=== PATIENT | female | born 1930 | race Caucasian/White ===

== ENCOUNTER 2017-04-20 22:47 | Inpatient (IN) | payer MEDICARE ==
--- NOTE | 2017-04-20 23:27 | RAD ---
RADIOGRAPH CHEST 1 VIEW: HISTORY: 86-year-old female with acute chest pain. FINDINGS: There is mild hyperinflation of the lungs, consistent with COPD. The thoracic aorta is tortuous and ectatic. There is no evidence of air space density, pneumothorax, or pulmonary edema. The lateral c ostophrenic angles are sharp. IMPRESSION: 1) No acute pulmonary findings. 2) Mild emphysema. 3) Ectasia of thoracic aorta. lukasz POS: FABIANA
[2017-04-20 23:49] LABS: ALT (SGPT) 12 U/L (8-55); AST (SGOT) 17 U/L (5-34); Albumin 3.7 g/dL (3.4-4.8); Alkaline Phosphatase 90 U/L (40-150); Anion Gap 10 mmol/L (10-20); BUN (Urea Nitrogen) 21 mg/dL (9.8-20.1); Bilirubin, Total 0.4 mg/dL (0.2-1.2); Calc. Creatinine Clearance 0 mL/min (70-130); Calcium 9.2 mg/dL (7.8-10.44); Carbon Dioxide 26 mmol/L (23-31); Chloride 110 mmol/L (98-107); Estimated GFR-MDRD 56; Globulin 2.6 g/dL (2.4-3.5); Glucose 98 mg/dL (83-110); Potassium 3.8 mmol/L (3.5-5.1); Protein, Total 6.3 g/dL (6.0-8.3); Sodium 142 mmol/L (136-145)
[2017-04-20 23:53] LABS: Troponin I Less than 0.010 ng/mL (< 0.028)
[2017-04-21 00:15] LABS: Eosinophils 2 % (0-10); Lymphocytes 32 % (21-51); MDiff Complete? YES; Mean Corpuscular HGB CONC 33.3 g/dL (32.0-36.0); Mean Corpuscular Hemoglobin 34.3 pg (27.0-31.0); Mean Platelet Volume 7.3 fL (7.4-10.4); Monocytes 6 % (0-10); Neutrophil 60 % (42-75); PLT Morphology Comment Appears Adequate; Platelet Count 184 thou/uL (130-400); RBC Distribution Width 12.1 % (11.5-14.5); Red Blood Cell (RBC) Count 3.21 mill/uL (4.20-5.40); White Blood Cell (WBC) Count 6.2 thou/uL (4.8-10.8)
[2017-04-21] MEDS ORDERED: Sodium Chloride 0.9% 1,000 ML IV SCH (01:15)
--- NOTE | 2017-04-21 01:15 | PDOC.EVN ---
Event Note - Event Note Event Note: [id number] H&P Dictated 1. Chest pain 2. HTN 3. H/O HPL 4. PVD Plan: see orders
--- NOTE | 2017-04-21 01:57 | HP ---
DATE OF ADMISSION: 04/21/2017 CHIEF COMPLAINT: Chest pain. HISTORY OF PRESENT ILLNESS: The patient is 86 years old female with past medical history of coronary artery disease, peripheral vascular disease, hypertension, hyperlipidemia, now came to the ER compla ining of chest pain. Chest pain started all of sudden, substernal, pressure kind of pain, intermitte nt, started this afternoon resolved with sublingual nitroglycerin, had another episode this evening, again resolved with sublingual nitroglycerin. The patient was sleeping tonight and all of sudden sta rted having chest pain, took nitroglycerin and pain resolved, so the patient came to the ER for furth er evaluation. Denies any radiation. Pain is moderate in intensity. Denies any sweating, denies an y nausea, denies any vomiting, denies any fever, denies any chills, denies any lightheadedness. Himanshu es any cough, denies sputum production. PAST MEDICAL HISTORY: As per HPI. PAST SURGICAL HISTORY: Bilateral carotid endarterectomy and stent placement. SOCIAL HISTORY: Denies smoking, denies alcohol, denies any drugs. FAMILY HISTORY: Positive for heart problems. REVIEW OF SYSTEMS: Constitutional: Denies any fever, denies any chills. Eyes: Denies any vision p roblems. Ears: Denies any hearing loss. Neck: Denies any neck pain. Cardiovascular system: Posi tive for chest pain. Respiratory system: Denies any cough, denies any sputum production. Gastroint estinal: Denies nausea, denies vomiting. Musculoskeletal: Denies any joint deformities. Integumen tary: Denies any rash. All other review of systems are reviewed and are negative. PHYSICAL EXAMINATION: CONSTITUTIONAL/VITAL SIGNS: At the time of H and P performed, blood pressure is 110/70, afebrile, re spiration rate 18. GENERAL: The patient appears comfortable. HEENT: Pupils equal, round, and reactive to light. Anterior nares patent. Nose normal. Teeth inta ct. Tongue is moist. NECK: Supple, no JVD. CARDIOVASCULAR SYSTEM: S1, S2 present. Regular rate and rhythm, no murmurs, no rubs, no gallops. RESPIRATORY SYSTEM: No wheezing, no rhonchi. Breath sounds present bilaterally. Gastrointestinal: Abdomen is soft, nontender, no guarding, no organomegaly. MUSCULOSKELETAL: No edema. CRANIAL NERVOUS SYSTEM: Awake, follows commands. Strength intact, sensory intact. PSYCHIATRIC: Mood is appropriate at this time. INTEGUMENTARY: No skin. LABORATORY DATA: At the time of H and P performed, sodium 142, potassium 3.8, chloride 110, CO2 of 2 6, BUN of 21, creatinine 0.95. Troponin less than 0.010, albumin 6.3. White count 6.2, hemoglobin 1 1, platelet count is 184. ASSESSMENT AND PLAN: The patient is 84 years old female: 1. Chest pain, need to rule out cardiac etiology. Plan to check cardiac enzymes. Plan to monitor t he patient closely. 2. History of hypertension. Monitor blood pressure. Continue home blood pressure medications. 3. History of coronary artery disease. Continue aspirin p.o. daily. 4. History of hyperlipidemia. Continue home medications. The case was discussed in detail with the patient.
[2017-04-21 02:54] LABS: Troponin I Less than 0.010 ng/mL (< 0.028)
[2017-04-21 03:07] LABS: Cardiac Risk 2.7 (Less than 4.5)
[2017-04-21] MEDS: Levothyroxine Sodium 75 MCG TAB PO SCH (04:21)
[2017-04-21] MEDS ORDERED: Nitroglycerin 2% Ointment 1 INCH/1 GM Packet TOP SCH (06:00)
[2017-04-21 06:54] LABS: Troponin I 0.013 ng/mL (< 0.028)
[2017-04-21] MEDS ORDERED: Aspirin 325 MG TAB PO SCH (09:00)
[2017-04-21] MEDS ORDERED: Carvedilol 6.25 MG TAB PO SCH ×2 (09:00→12:00)
[2017-04-21] MEDS ORDERED: hydrALAZINE 20 MG/ML VIAL SLOW IVP PRN (09:29)
--- NOTE | 2017-04-21 09:35 | PDOC.EVN ---
Event Note - Event Note Event Note: pt seen and evaluated agree with plan f/u cardiology recommendations
[2017-04-21] MEDS ORDERED: cloNIDine 0.1 MG TAB PO PRN (09:58)
[2017-04-21] MEDS ORDERED: Clopidogrel Bisulfate 300 MG TAB PO SCH (10:00)
[2017-04-21] MEDS ORDERED: Nisoldipine 8.5 MG TAB PO SCH (11:00)
[2017-04-21] MEDS ORDERED: SODIUM CHLORIDE 0.9% IVPB ONE (11:00)
[2017-04-21] MEDS ORDERED: FOSPHENYTOIN SODIUM IVPB ONE (11:00)
[2017-04-21] MEDS: Nebivolol HCl 5 MG TAB PO SCH (11:05)
--- NOTE | 2017-04-21 12:08 | PRG ---
DATE OF SERVICE: 04/21/2017 SUBJECTIVE: Ms. Ohara is an 86-year-old woman with a history of calcified coronary artery disease, labile hypertension, history of recurrent gastrointestinal bleeding, peripheral vascular disease, ad mitted with unstable angina. Ms. Ohara had an episode of angina, relieved with nitroglycerin, but then she had recurrent angina, and ultimately, required a total of 3 nitroglycerin. She came to the emergency room. She was broug ht in for observation. Currently, pain free. Blood pressure was over 190 systolic at home, but it i s extremely variable, blood pressure elsewhere over 190. PHYSICAL EXAMINATION: VITAL SIGNS: On exam now, blood pressure 191/79, pulse 70. HEENT: Eyes: Sclerae nonicteric. Mouth: Mucous membranes moist. NECK: Supple. No lymphadenopathy. LUNGS: Clear. No wheezing, rales, or rhonchi. CARDIAC: Normal S1, normal S2. There is no murmur, rub, or gallop. ABDOMEN: Soft, nontender. EXTREMITIES: Warm, dry. LABORATORY DATA: Cardiac enzymes are negative. EKG shows no acute ischemia. ASSESSMENT: 1. Unstable angina. 2. History of gastrointestinal bleeding. 3. Heavily calcified coronary arteries. 4. Blood pressure, extremely labile. PLAN: 1. Increase Sular 2. Try to give her at least a short-term course of Plavix at least for a couple of weeks, usually go longer, as she has gastrointestinal bleeding, we can not go longer. 3. Poor candidate for bypass surgery. She is frail and 86 years of age, nearly 87. 4. Poor candidate for stent implantation, coronary artery disease, heavily calcified with history of recurrent GI bleeding on Plavix. Hopefully, can be released home tomorrow.
[2017-04-21] MEDS: Nitroglycerin 0.4 MG TAB (25 Tab Bottle) SL PRN ×2 (17:27→17:36)
[2017-04-21] MEDS: Rivastigmine 4.6mg/24 Hour PATCH TOP SCH (20:43)
[2017-04-21] MEDS: Brinzolamide 1% Ophth Soln 10 ml Bottle EA EYE SCH (20:46)
[2017-04-21] MEDS: Latanoprost 0.005% Ophth Soln 2.5 ml Bottle EA EYE SCH (20:46)
[2017-04-21] MEDS: Atorvastatin Calcium 40 MG TAB PO SCH (20:47)
[2017-04-21] MEDS: Ubidecarenone 50 MG CAP PO SCH (20:47)
[2017-04-21] MEDS: Ezetimibe 10 MG TAB PO SCH (20:48)
[2017-04-21] MEDS: Nisoldipine 8.5 MG TAB PO SCH (20:49)
[2017-04-21] MEDS ORDERED: NISOLDIPINE PO SCH (21:00)
[2017-04-22] MEDS: Nitroglycerin 0.4 MG TAB (25 Tab Bottle) SL PRN ×2 (00:48→00:54)
[2017-04-22] MEDS: Levothyroxine Sodium 75 MCG TAB PO SCH (06:01)
[2017-04-22] MEDS: Nebivolol HCl 5 MG TAB PO SCH (08:51)
[2017-04-22] MEDS: Aspirin 81 mg Enteric Coated Tablet PO SCH (08:52)
[2017-04-22] MEDS: Calcium Carbonate + Vit D 1 TAB PO SCH (08:52)
[2017-04-22] MEDS: Potassium Chloride 10 MEQ TAB PO SCH (08:52)
[2017-04-22] MEDS: Magnesium Oxide 400 MG TAB PO SCH (08:52)
[2017-04-22] MEDS: Brinzolamide 1% Ophth Soln 10 ml Bottle EA EYE SCH ×2 (08:56→20:42)
[2017-04-22] MEDS ORDERED: Clopidogrel Bisulfate 75 MG TAB PO SCH (09:00)
[2017-04-22] MEDS ORDERED: Communication Order-Pharmacy FS SCH (09:30)
--- NOTE | 2017-04-22 09:55 | PRG ---
DATE OF SERVICE: 04/22/2017 Ms. Ohara had several episodes of resting angina requiring nitroglycerin at rest last night. He had a difficult night. OBJECTIVE: VITAL SIGNS: Blood pressure this morning 184/80, pulse 70. LUNGS: Clear. CARDIAC: Normal S1, S2. ABDOMEN: Soft and nontender. ASSESSMENT: 1. Unstable angina with refractory chest pain. 2. Hypercholesterolemia, controlled. 3. Hypertension, labile. 4. Peripheral vascular disease. PLAN: In view of continued angina even despite aspirin and Plavix, recommend cardiac catheterization . Discussed risks of stroke, heart attack, iodine allergy, loss of blood supply to the leg or kidney , stent thrombosis, stent restenosis, and bleeding in the event Plavix is necessary, which has been a problem in the past. The patient and family understand and wish to proceed. Prognosis is guarded. Options are suboptimal as if stents are placed she does have risk of GI bleeding, also she has calci fied vessels. It is unclear whether stent would be of any benefit or feasible. Bypass surgery could be considered, but she is 86 years of age and somewhat frail. We will go ahead and hold Plavix tomorrow morning in case bypass surgery is indicated.
[2017-04-22] MEDS: Nisoldipine 8.5 MG TAB PO SCH ×2 (14:05→20:49)
[2017-04-22] MEDS: Atorvastatin Calcium 40 MG TAB PO SCH (20:42)
[2017-04-22] MEDS: Ubidecarenone 50 MG CAP PO SCH (20:42)
[2017-04-22] MEDS: Latanoprost 0.005% Ophth Soln 2.5 ml Bottle EA EYE SCH (20:42)
[2017-04-22] MEDS: Ezetimibe 10 MG TAB PO SCH (20:42)
[2017-04-22] MEDS: Rivastigmine 4.6mg/24 Hour PATCH TOP SCH (20:49)
[2017-04-23] MEDS: Nisoldipine 8.5 MG TAB PO SCH ×2 (04:54→20:59)
[2017-04-23] MEDS: Nebivolol HCl 5 MG TAB PO SCH (04:55)
[2017-04-23] MEDS: Magnesium Oxide 400 MG TAB PO SCH (04:55)
[2017-04-23] MEDS: Calcium Carbonate + Vit D 1 TAB PO SCH (04:55)
[2017-04-23] MEDS: Levothyroxine Sodium 75 MCG TAB PO SCH (04:55)
[2017-04-23] MEDS: Aspirin 81 mg Enteric Coated Tablet PO SCH (04:56)
[2017-04-23] MEDS: Sodium Chloride 0.9% 1,000 ML IV SCH (04:58)
[2017-04-23] MEDS ORDERED: Heparin 1000 UNIT/NS 500ML(OR) 1,000 ML ONE (06:39)
[2017-04-23 06:59] LABS: Albumin 3.2 g/dL (3.4-4.8); Anion Gap 10 mmol/L (10-20); BUN (Urea Nitrogen) 18 mg/dL (9.8-20.1); BUN/Creatinine Ratio 21.43; Calc. Creatinine Clearance 39 mL/min (70-130); Carbon Dioxide 25 mmol/L (23-31); Estimated GFR-MDRD 64; Glucose 99 mg/dL (83-110)
[2017-04-23] MEDS ORDERED: Nitroglycerin 2% Ointment 1 INCH/1 GM Packet ONE (07:48)
[2017-04-23] MEDS ORDERED: Heparin 10,000 UNITS/1 ML VIAL ONE (07:49)
[2017-04-23 08:05] LABS: Sodium 138 mmol/L (136-145)
[2017-04-23 08:06] LABS: Calcium 8.7 mg/dL (7.8-10.44); Chloride 111 mmol/L (98-107); Phosphorus 3.7 mg/dL (2.3-4.7); Potassium 5.4 mmol/L (3.5-5.1)
[2017-04-23] MEDS ORDERED: Heparin 10,000 UNITS/ 10 ML VIAL SLOW IVP SCH (08:45)
[2017-04-23] MEDS ORDERED: Heparin 25,000 units/D5W 500 ML IV SCH (08:45)
[2017-04-23 09:04] LABS: Hemoglobin 9.8 g/dL (12.0-16.0); Platelet Count 166 thou/uL (130-400)
[2017-04-23 09:36] LABS: PTT Greater than 250.0 SEC (22.9-36.1)
[2017-04-23 10:49] LABS: PTT 155.9 SEC (22.9-36.1)
[2017-04-23] MEDS ORDERED: Fentanyl 100 MCG/2 ML VIAL ONE (14:22)
[2017-04-23] MEDS ORDERED: Iopamidol 370 76% 100 ML VIAL ONE (15:45)
[2017-04-23] MEDS ORDERED: Communication Order-Pharmacy FS SCH (16:25)
[2017-04-23] MEDS ORDERED: hydrALAZINE 20 MG/ML VIAL SLOW IVP PRN (16:27)
--- NOTE | 2017-04-23 18:44 | CON ---
DATE OF CONSULTATION: 04/23/2017 REASON FOR CONSULTATION: Evaluate the patient for coronary artery bypass grafting. HISTORY OF PRESENT ILLNESS: Ms. Ohara is an 86-year-old woman who has had 6 weeks of chest pain at home. This has increased recently to where she was admitted to the hospital on 04/20/2017 with a se colette episode. She was settled down, but continued to have chest pain in the hospital. Dr. Sawant thurston s consultation and took her for cardiac catheterization today. Catheterization shows a severe right coronary stenosis and a severe left main stenosis. She has an ejection fraction of 60% on ventriculo gram. Currently, she is resting comfortably in the recovery area with no chest pain or shortness of breath. I have been asked to see her to discuss coronary artery bypass grafting. PAST MEDICAL HISTORY: 1. Coronary artery disease. 2. Peripheral vascular disease. 3. Hypertension. 4. History of recurrent gastrointestinal bleeding, on Plavix. PAST SURGICAL HISTORY: 1. Bilateral carotid endarterectomies. 2. Peripheral vascular stenting by Dr. Hernandez. SOCIAL HISTORY: She smoked until the early when she had a myocardial infarction which led to h er stopping tobacco use. She does not use alcohol. She is accompanied by her and daughters. ALLERGIES: None. HOME MEDICATIONS: Noted. REVIEW OF SYSTEMS: Ten-point review of systems was performed and is negative except as above. PHYSICAL EXAMINATION: GENERAL: This is a well-developed, diminutive elderly woman resting comfortably in the recovery area . VITAL SIGNS: Height 5 feet 5 inches, weight 114 pounds, BSA is 1.54, temperature is 98.7, pulse is 7 5 and regular, blood pressure is 170/76. HEENT: Sclerae nonicteric. Pupils equal and round bilaterally. NECK: Supple. She has no carotid bruits. CHEST: Clear to auscultation and percussion bilaterally. HEART: Rhythm is regular, without murmur. ABDOMEN: Soft and nontender with no masses. EXTREMITIES: No cyanosis, clubbing or edema. VASCULAR: She has palpable carotid, radial, femoral, and dorsalis pedis pulses bilaterally. VENOUS: There are no venous varicosities or venous stasis changes. PSYCHIATRIC: The patient is awake, alert, and oriented to person, place and time. She is hard of he aring and we have to speak very loudly for her to understand anything that you say. LABORATORY DATA: Of note, hemoglobin is 9.8, platelet count 166,000, creatinine is 0.84, potassium i s 5.4. Chest x-ray is clear with no dominant lung mass. Most recent carotid ultrasound was performe d in 10/2016, which showed a moderate stenosis of the left internal carotid artery; the right interna l carotid artery is clear. ASSESSMENT AND PLAN: This is a very pleasant, although frail 86-year-old woman with unstable angina. Cardiac catheterization shows anatomy compelling for coronary artery bypass grafting. I have discu ssed the surgery in detail with she and her family. They understand that this is going to be a long and difficult road for her to recover from due to her age and overall physiologic status. They are w anting to go ahead and proceed and we will plan for surgery tomorrow morning. Potential targets incl uded LAD, OM, and distal right coronary enzyme.
[2017-04-23] MEDS ORDERED: Nitroglycerin 50 MG/250 ML BOT 250 ML ONE (19:17)
[2017-04-23] MEDS ORDERED: Nitroglycerin 50 MG/250 ML BOT 250 ML IVPB PRN (19:19)
[2017-04-23] MEDS: Brinzolamide 1% Ophth Soln 10 ml Bottle EA EYE SCH ×2 (20:57→21:13)
[2017-04-23] MEDS: Potassium Chloride 10 MEQ TAB PO SCH (20:57)
[2017-04-23] MEDS: Atorvastatin Calcium 40 MG TAB PO SCH (20:57)
[2017-04-23] MEDS: Latanoprost 0.005% Ophth Soln 2.5 ml Bottle EA EYE SCH (20:58)
[2017-04-23] MEDS: Ezetimibe 10 MG TAB PO SCH (20:58)
[2017-04-23] MEDS: Rivastigmine 4.6mg/24 Hour PATCH TOP SCH (20:59)
[2017-04-23] MEDS: Ubidecarenone 50 MG CAP PO SCH (21:00)
[2017-04-23 22:49] LABS: #Eosinphils 0.1 thou/uL (0.0-0.7); #Lymphocytes 1.1 thou/uL (1.20-3.40); #Monocytes 0.9 thou/uL (0.11-0.59); #Neutrophils 5.9 thou/uL (1.40-6.50); %Basophils 0.3 % (0.0-1.0); %Eosinophils 1.5 % (0.0-10.0); %Lymphocytes 13.7 % (21.0-51.0); %Monocytes 11.5 % (0.0-10.0); Hemoglobin 10.4 g/dL (12.0-16.0); Mean Corpuscular HGB CONC 32.8 g/dL (32.0-36.0); Mean Corpuscular Hemoglobin 33.6 pg (27.0-31.0); Mean Platelet Volume 6.9 fL (7.4-10.4); Platelet Count 169 thou/uL (130-400); RBC Distribution Width 12.1 % (11.5-14.5); Red Blood Cell (RBC) Count 3.09 mill/uL (4.20-5.40)
[2017-04-23 23:06] LABS: Anion Gap 9 mmol/L (10-20); BUN (Urea Nitrogen) 15 mg/dL (9.8-20.1); Calc. Creatinine Clearance 42 mL/min (70-130); Calcium 9.2 mg/dL (7.8-10.44); Carbon Dioxide 27 mmol/L (23-31); Chloride 108 mmol/L (98-107); Estimated GFR-MDRD 68; Glucose 121 mg/dL (83-110); Potassium 3.7 mmol/L (3.5-5.1); Sodium 140 mmol/L (136-145)
--- NOTE | 2017-04-23 23:17 | CT ---
CT OF THE ABDOMEN AND PELVIS WITHOUT CONTRAST 04/23/17 PROVIDED CLINICAL HISTORY: Right lower quadrant pain, recent cardiac catheterization. FINDINGS: Comparison is made with the study dated 10/26/16. The visualized lung bases are free of significant opacity. Bilateral renal cysts and nonobstructing right sided renal calculi are again noted. The solid abdomin al organs are suboptimally evaluated without IV contrast but demonstrate an otherwise unremarkable un enhanced CT appearance. There is somewhat conspicuous distention of the gallbladder without surroundi ng inflammatory change. There is enlargement and heterogeneous increased density within the right rectus abdominis muscle fro m its symphysis insertion to about the level of the umbilicus. This measures approximately 5.7 x 4.4 cm in greatest transverse dimension x about 10 cm in craniocaudal dimension. This is compatible with an intramuscular hematoma. There is no bowel dilatation, inflammatory fat stranding, free fluid or fr ee air apparent. Extensive atherosclerotic vascular calcification is noted involving the abdominal ao rta and its branches with vascular stent material seen. There is conspicuous colonic fecal retention and numerous sigmoid diverticula. The osseous structures demonstrate no concerning osteoblastic or osteolytic lesions. IMPRESSION: 1. Intramuscular hematoma involving the right rectus abdominis muscle. 2. Chronic findings as above. POS: MIKA
[2017-04-24] MEDS: Levothyroxine Sodium 75 MCG TAB PO SCH (05:16)
[2017-04-24] MEDS: Nebivolol HCl 5 MG TAB PO SCH (05:16)
[2017-04-24] MEDS: Sodium Chloride 0.9% 1,000 ML IV SCH (05:25)
[2017-04-24 06:00] LABS: Albumin 3.3 g/dL (3.4-4.8); BUN (Urea Nitrogen) 20 mg/dL (9.8-20.1); Calc. Creatinine Clearance 40 mL/min (70-130); Chloride 109 mmol/L (98-107); Estimated GFR-MDRD 65; Glucose 106 mg/dL (83-110); Phosphorus 3.8 mg/dL (2.3-4.7); Potassium 3.9 mmol/L (3.5-5.1); Sodium 140 mmol/L (136-145)
[2017-04-24 06:02] LABS: Carbon Dioxide 24 mmol/L (23-31)
[2017-04-24 06:18] LABS: Anion Gap 11 mmol/L (10-20)
[2017-04-24] MEDS ORDERED: Albumin 5% 500 ML ONE (06:36)
[2017-04-24] MEDS ORDERED: Heparin 10,000 UNITS/1 ML VIAL 30,000 UNITS in Sodium Chloride 0.9% 1,000 ML FS SCH (06:45)
[2017-04-24] MEDS ORDERED: Phenylephrine 10 MG/NS 250 ML 250 ML ONE (08:45)
[2017-04-24] MEDS ORDERED: Midazolam HCl 5 mg/5 ml Vial ONE (08:48)
[2017-04-24] MEDS ORDERED: Fentanyl 250 MCG/5 ML VIAL ONE (08:48)
[2017-04-24] MEDS ORDERED: hydrALAZINE 20 MG/ML VIAL ONE (09:54)
--- NOTE | 2017-04-24 10:44 | CON ---
DATE OF CONSULTATION: 04/24/2017 HISTORY: This is an 86-year-old female from the [facility] who was admitted to the hospital on 04/04 with chest pain. Cardiac evaluation was done, found to have coronary artery disease, she is scheduled for surgery toda y. The patient is essentially a nonsmoker with no prior history of TB or bronchial asthma. She presente d with sudden onset of chest pain, took nitro, got better. No fever or chills. PAST MEDICAL HISTORY: Pertinent for previous TIA, peripheral vascular disease. PAST SURGICAL HISTORY: Otherwise included a previous apparently carotid surgery. MEDICATIONS FROM HOME; Includes Exelon patch, Ranexa, potassium, Benicar 20, Sular 8.5, Bystolic 5, magnesium, Synthroid 75, eye drops, ISMO 60, Zetia 10, atorvastatin 80, aspirin 81. REVIEW OF SYSTEMS: Difficult to obtain, patient is having evidence of dementia, is at the [facility]. I spoke to him at length. I reviewed her extensive previous medical records. PHYSICAL EXAMINATION: VITAL SIGNS: To note, sats are 96% on room air, blood pressure 130/74, pulse 80, respirations 18. CHEST: Chest revealed no wheezing or crackles. CARDIAC: Normal S1, S2. ABDOMEN: Soft, no masses. LABORATORY DATA: White count 8000, H&H 8 and 31, platelet count 69. Electrolytes are normal. CT abdomen and pelvis was done, intramuscular hematoma in the right rectus abdominal muscle. Chest x-ray taken several days ago, which I personally reviewed, shows no acute infiltrates. IMPRESSION: 1. Coronary artery disease, scheduled for a coronary artery bypass surgery. 2. Dementia. 3. Hypothyroidism. 4. Peripheral vascular disease. 5. Remote history of tobacco abuse. 6. Gastrointestinal bleed. PLAN: Will follow while in the ICU. Wean as tolerated. This is a 70 minute time spent at the bedside with the patient in the ICU.
[2017-04-24] MEDS ORDERED: Potassium Chloride 20 MEQ/100 ML PREMIX BAG IVPB PRN (13:46)
[2017-04-24] MEDS ORDERED: Fentanyl 100 MCG/2 ML VIAL SLOW IVP PRN ×2 (13:46)
[2017-04-24] MEDS ORDERED: Post-Op Insulin Drip Protocol IVPB ONE (13:46)
[2017-04-24] MEDS ORDERED: D5 1/2 NS w/20 mEq KCL 1,000 ML IV SCH (13:46)
[2017-04-24] MEDS ORDERED: Ondansetron HCl/PF 4 MG/2 ML Vial IVP PRN (13:46)
[2017-04-24] MEDS ORDERED: Mag-Al 1200 mg/1200 mg/30 ML UDCUP PO PRN (13:46)
[2017-04-24] MEDS ORDERED: HYDROcodone/Acetaminophen 5/325 mg Tablet PO PRN ×2 (13:46)
[2017-04-24] MEDS ORDERED: Bisacodyl 5 MG TAB PO PRN (13:46)
[2017-04-24] MEDS ORDERED: Nitroglycerin 50 MG/250 ML BOT 250 ML IVPB PRN (13:46)
[2017-04-24] MEDS ORDERED: Guaifenesin DM 100-10/5 ML UDCUP PO PRN (13:46)
[2017-04-24] MEDS ORDERED: Hetastarch 6% 500 ML 500 ML IVPB PRN (13:46)
[2017-04-24] MEDS ORDERED: Promethazine HCl 25 MG/ML VIAL IM PRN (13:46)
[2017-04-24] MEDS ORDERED: Phenylephrine 10 MG/NS 250 ML 250 ML IVPB PRN (13:46)
[2017-04-24] MEDS ORDERED: Acetaminophen 325 MG TAB PO PRN (13:46)
[2017-04-24] MEDS ORDERED: Bisacodyl 10 MG SUPP PR PRN (13:46)
[2017-04-24] MEDS ORDERED: Norepinephrine 8 MG/0.9% NS 250 ML IVPB PRN (13:46)
[2017-04-24] MEDS ORDERED: Insulin Regular 300 UNITS/3 ML VIAL SC PRN (13:58)
[2017-04-24] MEDS ORDERED: Dextrose 50% Abboject 50 ML SYRINGE SLOW IVP PRN (13:58)
[2017-04-24] MEDS ORDERED: Dextrose 5% in Water 1,000 ML IV PRN (13:58)
--- NOTE | 2017-04-24 14:05 | OP ---
DATE OF OPERATION: 04/24/2017. PREOPERATIVE DIAGNOSES: 1. Coronary artery disease/peripheral vascular disease/hypertension/hyperlipidemia/carotid stenosis status post bilateral carotid endarterectomy. 2. Hyperthyroidism. 3. Gastroesophageal reflux disease. POSTOPERATIVE DIAGNOSES: 1. Coronary artery disease/peripheral vascular disease/hypertension/hyperlipidemia/carotid stenosis status post bilateral carotid endarterectomy. 2. Hyperthyroidism. 3. Gastroesophageal reflux disease. PROCEDURES: Coronary artery bypass grafting x4: 1. Reverse saphenous vein in sequence to 1.0 mm diagonal and 1.0 mm left anterior descending - good conduit with small target. 2. Reversed saphenous vein to 1.25 mm OM, good conduit with posteriorly plaqued target. 3. Reversed saphenous vein to 2.5 mm RCA - good conduit with posterior plaque target. SURGEON: Pablo Motta M.D. and Peterson Aviles M.D. ANESTHESIA: General endotracheal, Dr. Amy Zayas. PUMP TIME: 86 minutes. CROSS-CLAMP TIME: 39 minutes. LOW CORE TEMPERATURE: 32 degrees Celsius. DREDGE PUMPER: Bradley Hernandes. DRAINS: 24-Irish chest tubes x2. DRIPS: Epinephrine 0.03 mcg/kg per minute. TRANSFUSIONS: Three units packed red blood cells for anemia on pump. PROCEDURE IN DETAIL: After consent was obtained, the patient was brought to the operating room and p laced in the supine position on the operating room table. Appropriate anesthetic monitor was placed and general endotracheal anesthesia induced. Chest, abdomen, and legs were prepped and draped in usu al sterile fashion. Greater saphenous vein was harvested from the left lower extremity utilizing an endoscopic technique from groin to the midcalf. Wounds were irrigated and closed in layers. Median sternotomy was performed. The patient was systemically heparinized. Thymic fat and pericardium were divided with electrocautery. Pericardial stay sutures were placed. Aortic and atrial cannulation w as performed. After adequate heparinization, the patient was placed on cardiopulmonary bypass. Dist al targets were marked. Aortic cross-clamp was applied and antegrade sanguinous cardioplegic arrest obtained. Left internal mammary artery was not utilized due to the patient's diminutive size and ST elevation o n induction of anesthesia. Aortic cross-clamp was applied and antegrade sanguinous cardioplegic arrest obtained. One liter of a ntegrade cold Duarte cardioplegia was given. Topical cold solution was used. Reversed saphenous ve in was anastomosed to the distal RCA in end-to-side fashion with running 7-0 Prolene suture. Anastom osis was tested and was hemostatic. Reversed saphenous vein was anastomosed to the OM in end-to-side fashion with running 7-0 Prolene suture. Anastomosis was tested and was hemostatic. Reversed saphe nous vein was anastomosed in wrwo-sy-gyiy fashion to the diagonal in end-to-side fashion to the dista l LAD with running 7-0 Prolene suture. Anastomoses were tested and they were hemostatic. Cross-clam p was removed and partial occluding clamp placed. Saphenous veins to the RCA and sequential saphenou s vein was anastomosed to the aortic root. Saphenous vein to the OM was anastomosed to the sidewall of the LAD graft. Partial occluding clamp was removed and grafts deaired. Anastomoses were inspecte d for hemostasis, which was good. The patient was warmed and weaned from cardiopulmonary bypass. Af ter resumption of sinus rhythm, good hemodynamics, and temperature greater than 36.5, bypass was disc ontinued. Decannulation was performed and pursestring sutures secured. Vein pledgeted 4-0 Prolene s uture was used to reinforce the aortic cannulation site. Protamine was administered. Hemostasis was ensured. A 24-Irish chest tubes x2 were placed in the mediastinum. Sternum was treated with vanco mycin paste. After adequate hemostasis had been ensured, the sternum was closed with #7 wire. Roberson um was treated with platelet-rich plasma and wires twisted. Wounds were irrigated, treated with plat elet-poor plasma, and closed in multiple layers. The patient tolerated the procedure well, and was t ransferred to the intensive care unit in stable, but critical condition. Needle, sponge, and instrum ent counts were all reported as correct at the end of the procedure.
--- NOTE | 2017-04-24 14:09 | PDOC.PN ---
- Subjective Encounter Start Date: 04/24/17 Encounter Start Time: 14:07 Patient seen and examined. No new complaints. No overnight events foe cabg today - Objective MAR Reviewed: Yes Vital Signs & Weight: Vital Signs (12 hours) Temp Pulse Resp Pulse Ox 04/24/17 08:00 98.5 F 71 18 98 04/24/17 04:00 98.0 F Weight Admit Weight 111 lb 3.2 oz Weight 114 lb Most Recent Monitor Data Heart Rate from ECG 68 NIBP 115/75 NIBP BP-Mean 96 Respiration from ECG 20 SpO2 97 I&O: 04/23/17 04/24/17 04/25/17 06:59 06:59 06:59 Intake Total 1043.1 Output Total 1320 660 Balance -276.9 -660 Result Diagrams: 04/23/17 22:40 04/24/17 04:30 Additional Labs: Accuchecks 04/24/17 04/24/17 13:21 10:21 POC Glucose 152 H 102 Phys Exam - Physical Examination Constitutional: NAD HEENT: PERRLA Neck: no JVD Respiratory: no wheezing Cardiovascular: no significant murmur Gastrointestinal: no distention Musculoskeletal: pulses present Neurological: normal sensation Psychiatric: normal affect Dx/Plan (1) CAD (coronary artery disease) Code(s): I25.10 - ATHSCL HEART DISEASE OF [place] CORONARY ARTERY W/O ANG PCTRS Status: Chronic Qualifiers: (2) Hematoma of rectus sheath Code(s): S30.1XXA - CONTUSION OF ABDOMINAL WALL, INITIAL ENCOUNTER Status: Acute (3) Hypothyroid Code(s): E03.9 - HYPOTHYROIDISM, UNSPECIFIED Status: Acute (4) Hyperlipidemia Code(s): E78.5 - HYPERLIPIDEMIA, UNSPECIFIED Status: Acute (5) HTN (hypertension) Code(s): I10 - ESSENTIAL (PRIMARY) HYPERTENSION Status: Chronic Qualifiers: Comment: labile - Plan * f/u h/h * for cabg today, f/u cvts plan
[2017-04-24] MEDS: Ketorolac Tromethamine 30 MG/ML VIAL IVP SCH ×2 (14:15→17:53)
[2017-04-24 14:20] LABS: Actual Bicarbonate (HCO3a) 17.3 mEq/L (22-26); CO2 Tension 31.2 mmHg (35.0-45.0); Calcium, Ionized 1.2 mmol/L (1.12-1.30); Hematocrit-ABG 32.6 % (36.0-47.0); Hemoglobin (Hb) 12.2 g/dL (12.0-16.0); O2 Tension (PaO2) 316.5 mmHg (80.0-100.0); Puncture Site A-LINE; pH, Arterial 7.36 (7.35-7.45)
[2017-04-24 14:49] LABS: INR-International Normal Ratio 1.4; PTT 33.9 SEC (22.9-36.1); Prothrombin Time 17.3 SEC (12.0-14.7)
--- NOTE | 2017-04-24 14:49 | RAD ---
AP VIEW CHEST: HISTORY: Post open heart surgery. FINDINGS: AP view che3st was obtained on 04/24/17. Comparison is made to previous exam from 04/20/17. AP view chest demonstrates mediastinal drains in place. Pericardial drain is in place. The patient is intubated. Endotracheal tube is in good position. Calcification of the aorta is seen. The lungs are well aerated. No evidence of effusions, pneumonia, or pneumothorax is seen. IMPRESSION: Post-thoracotomy changes. No acute intrathoracic abnormality is seen. POS: MIKAH
[2017-04-24] MEDS: CEFAZOLIN/Water 2 GM/20 ML SYRINGE SLOW IVP SCH ×2 (14:50→21:05)
[2017-04-24 15:02] LABS: Anisocytosis SLIGHT = 6-15 cells (100X) (0-5/hpf); Band 16 % (5-11); Hemoglobin 12.7 g/dL (12.0-16.0); Lymphocytes 13 % (21-51); MDiff Complete? YES; Mean Corpuscular HGB CONC 33.3 g/dL (32.0-36.0); Mean Corpuscular Hemoglobin 31.8 pg (27.0-31.0); Mean Corpuscular Volume 95.5 fl (81.0-99.0); Mean Platelet Volume 7.6 fL (7.4-10.4); Monocytes 3 % (0-10); Neutrophil 68 % (42-75); PLT Morphology Comment Appears Decreased; Platelet Count 108 thou/uL (130-400); RBC Distribution Width 15.1 % (11.5-14.5); Red Blood Cell (RBC) Count 3.98 mill/uL (4.20-5.40); White Blood Cell (WBC) Count 23.8 thou/uL (4.8-10.8)
[2017-04-24 15:05] LABS: Anion Gap 13 mmol/L (10-20); BUN (Urea Nitrogen) 16 mg/dL (9.8-20.1); Calc. Creatinine Clearance 45 mL/min (70-130); Calcium 8.1 mg/dL (7.8-10.44); Carbon Dioxide 16 mmol/L (23-31); Chloride 117 mmol/L (98-107); Estimated GFR-MDRD 73; Glucose 128 mg/dL (83-110); Potassium 3.6 mmol/L (3.5-5.1); Sodium 142 mmol/L (136-145)
--- NOTE | 2017-04-24 15:58 | EKG ---
Test Reason : POST CABG Blood Pressure : / mmHG Vent. Rate : 085 BPM Atrial Rate : 085 BPM P-R Int : 140 ms QRS Dur : 090 ms QT Int : 414 ms P-R-T Axes : 081 062 -20 degrees QTc Int : 492 ms Normal sinus rhythm T wave abnormality, consider inferior ischemia Abnormal ECG Confirmed by DANAE LÓPEZ ([id number]) on 04/24/2017 3:58:12 PM Referred By: Marcia LIND Confirmed By:DANAE LÓPEZ
[2017-04-24] MEDS ORDERED: Lidocaine 1% PF 5 ML VIAL ONE (16:35)
[2017-04-24] MEDS ORDERED: Lidocaine 2% PF 100 mg/5 ml Syringe ONE (16:35)
[2017-04-24] MEDS ORDERED: Aminocaproic Acid 5 GM/20 ML VIAL ONE (16:35)
[2017-04-24] MEDS ORDERED: Mannitol 12.5 GM/50 ML ONE (16:35)
[2017-04-24] MEDS ORDERED: Thrombin 5000 UNITS/5 ML VIAL ONE (16:35)
[2017-04-24] MEDS ORDERED: Protamine Sulfate 250 MG/25 ML VIAL ONE (16:35)
[2017-04-24] MEDS ORDERED: PROPOFOL 200 MG/20 ML VIAL ONE (16:35)
[2017-04-24] MEDS ORDERED: Heparin 5,000 UNITS/ML VIAL ONE (16:35)
[2017-04-24] MEDS ORDERED: Heparin 30,000 units/30 ml VIAL ONE (16:35)
[2017-04-24] MEDS ORDERED: Magnesium 5 GM/10 ML VIAL ONE (16:35)
[2017-04-24] MEDS ORDERED: Potassium Chloride 60 MEQ/30 ML VIAL ONE (16:35)
[2017-04-24] MEDS ORDERED: Vecuronium 10 MG VIAL ONE (16:35)
[2017-04-24] MEDS ORDERED: Calcium Chloride 1 GM/10 ML Abboject SYRINGE ONE (16:35)
[2017-04-24] MEDS ORDERED: ePHEDrine/0.9% NaCl/PF SYRINGE 50 mg/10 ml ONE (16:35)
[2017-04-24] MEDS ORDERED: Sodium Bicarb 50 MEQ/50 ML Abboject 8.4% SYRINGE ONE (16:35)
[2017-04-24] MEDS ORDERED: Cardioplegic Soln 1,000 ML BAG ONE (16:35)
[2017-04-24] MEDS ORDERED: DOPamine 400 MG/10 ML VIAL ONE (16:35)
[2017-04-24] MEDS ORDERED: EPINEPHrine 1 MG/ML AMP ONE (16:35)
[2017-04-24] MEDS ORDERED: PHENYLEPHRINE-NS 100 MCG/ML 10 ML SYRINGE ONE (16:35)
[2017-04-24 17:04] LABS: Hemoglobin 12.6 g/dL (12.0-16.0)
[2017-04-24 17:20] LABS: Potassium 4.7 mmol/L (3.5-5.1)
--- NOTE | 2017-04-24 19:37 | PRG ---
DATE OF SERVICE: 04/24/2017 Ms. Ohara is doing okay. Postoperative, she is restless and seems confused. OBJECTIVE: VITAL SIGNS: Blood pressure is 140 systolic. Pulse is in the 70s. LUNGS: Clear. CARDIAC: Normal S1, S2. ASSESSMENT: 1. Status post coronary artery bypass grafting. 2. Had some mild confusion preop probably postoperative confusion. 3. Labile blood pressure. PLAN: Continue current medical regimen. Hopefully, could be extubated soon. Confusion, likely be a postoperative problem.
--- NOTE | 2017-04-24 19:37 | PRG ---
DATE OF SERVICE: 04/24/2017 SUBJECTIVE: Post CABG, intubated on the vent and sedated. Blood gas; pO2 of 316, pCO2 of 31, pH 7.3 6, rate of 12, PEEP of 5, 60%, tidal volume. OBJECTIVE: CHEST: Decreased breath sounds, no wheezing. CARDIAC: Normal S1 and S2. LABORATORY DATA: White count is 22,000, hemoglobin and hematocrit 12 and 38, platelet count 108. El ectrolytes are normal. IMPRESSION: 1. Status post coronary artery bypass graft. X-ray stable. No pneumonia, no pneumothorax. 2. Leukocytosis. Wean per protocol. Continue supportive care. Neb treatments ordered. We will follow.
[2017-04-24 19:42] LABS: Actual Bicarbonate (HCO3a) 16.7 mEq/L (22-26); Base Excess (BEa) -8.8 mEq/L (0 (+/-) 2.5); CO2 Tension 34.7 mmHg (35.0-45.0); Calcium, Ionized 1.2 mmol/L (1.12-1.30); Hematocrit-ABG 32.5 % (36.0-47.0); Hemoglobin (Hb) 11.7 g/dL (12.0-16.0); O2 Tension (PaO2) 181.8 mmHg (80.0-100.0)
[2017-04-24 19:44] LABS: ALV-art Gradient 56.825 (0-20); Puncture Site ART LINE
[2017-04-24] MEDS ORDERED: Sodium Bicarb 50 MEQ/50 ML Abboject 8.4% SYRINGE IVP SCH (20:15)
[2017-04-24] MEDS ORDERED: Famotidine/PF 20 mg/2ml Vial SLOW IVP SCH (21:00)
[2017-04-25] MEDS: Ketorolac Tromethamine 30 MG/ML VIAL IVP SCH ×5 (00:25→23:18)
[2017-04-25 03:58] LABS: #Lymphocytes 0.6 thou/uL (1.20-3.40); #Monocytes 1.7 thou/uL (0.11-0.59); #Neutrophils 9.3 thou/uL (1.40-6.50); %Eosinophils 0.1 % (0.0-10.0); %Lymphocytes 5.5 % (21.0-51.0); %Monocytes 14.4 % (0.0-10.0); Mean Corpuscular HGB CONC 32.8 g/dL (32.0-36.0); Mean Corpuscular Hemoglobin 31.7 pg (27.0-31.0); Mean Corpuscular Volume 96.7 fl (81.0-99.0); Mean Platelet Volume 8.6 fL (7.4-10.4); Platelet Count 112 thou/uL (130-400); RBC Distribution Width 15.7 % (11.5-14.5); Red Blood Cell (RBC) Count 3.78 mill/uL (4.20-5.40); White Blood Cell (WBC) Count 11.7 thou/uL (4.8-10.8)
[2017-04-25] MEDS: CEFAZOLIN/Water 2 GM/20 ML SYRINGE SLOW IVP SCH (05:00)
[2017-04-25 05:01] LABS: Anion Gap 13 mmol/L (10-20); BUN (Urea Nitrogen) 23 mg/dL (9.8-20.1); Calc. Creatinine Clearance 26 mL/min (70-130); Calcium 8.4 mg/dL (7.8-10.44); Carbon Dioxide 21 mmol/L (23-31); Chloride 115 mmol/L (98-107); Estimated GFR-MDRD 39; Glucose 142 mg/dL (83-110); Potassium 4.1 mmol/L (3.5-5.1); Sodium 145 mmol/L (136-145)
[2017-04-25] MEDS: Aspirin 325 MG TAB PO SCH (08:11)
[2017-04-25] MEDS: Famotidine 20 MG TAB PO SCH (08:12)
[2017-04-25] MEDS: Levothyroxine Sodium 75 MCG TAB PO SCH (08:12)
--- NOTE | 2017-04-25 09:03 | RAD ---
AP VIEW OF CHEST: Date: 04/25/17 HISTORY: Post open heart surgery. FINDINGS: AP view of chest obtained. Comparison made to previous exam from 04/24/17. AP view of chest demonstrates sternotomy wires seen. Mediastinal drains in place. The lungs are well aerated. No evidence of acute intrathoracic abnormality seen. No evidence of effusions, pneumonia, or pneumothorax. Calcification of aorta is noted. IMPRESSION: Unremarkable AP view of chest post thoracotomy. Mediastinal and pericardial drains in good position. No evidence of acute intrathoracic abnormality noted otherwise. POS: MIKA
--- NOTE | 2017-04-25 09:12 | PRG ---
DATE OF SERVICE: 04/25/2017 SUBJECTIVE: Ms. Ohara is doing well postoperatively. She is up in the chair. She is doing much b jeanette with her family in the room and it is very reassuring to her, she had some preoperative confusi on. OBJECTIVE: VITAL SIGNS: Blood pressure is 120 systolic, but as mentioned, she is very labile in terms of blood pressure, pulse 80. LUNGS: Clear. CARDIAC: Normal S1, S2. ABDOMEN: Soft, nontender. EXTREMITIES: No edema. ASSESSMENT: 1. Status post bypass surgery. 2. Baseline confusion. POSTOPERATIVE PLAN: 1. Continue current medical therapy. 2. Resume beta blockers. 3. Other medicines as tolerated. We will start with beta blockers.
[2017-04-25] MEDS: Nebivolol HCl 5 MG TAB PO SCH (09:22)
--- NOTE | 2017-04-25 14:09 | PDOC.PN ---
- Subjective Encounter Start Date: 04/25/17 Encounter Start Time: 14:07 pod #1 doing well drains in place no n/v' no f/c - Objective MAR Reviewed: Yes Vital Signs & Weight: Vital Signs (12 hours) Temp Pulse Resp Pulse Ox 04/25/17 13:18 96 73 H 20 L 04/25/17 12:00 97.7 F 04/25/17 08:00 97.8 F 04/25/17 07:24 97.9 F 80 16 97 04/25/17 06:44 80 16 04/25/17 04:00 98.1 F Weight Admit Weight 111 lb 3.2 oz Weight 1.929 oz Most Recent Monitor Data Heart Rate from ECG 81 NIBP 97/49 NIBP BP-Mean 61 Respiration from ECG 19 SpO2 97 I&O: 04/24/17 04/25/17 04/26/17 06:59 06:59 06:59 Intake Total 1043.1 1566.2 469 Output Total 1320 1830 190 Balance -276.9 -263.8 279 Result Diagrams: 04/25/17 03:00 04/25/17 03:00 Additional Labs: Accuchecks 04/25/17 04/25/17 04/25/17 06:19 05:46 04:31 POC Glucose 118 H 124 H 163 H 04/25/17 04/25/17 04/25/17 03:18 02:29 01:05 POC Glucose 133 H 149 H 110 04/25/17 04/24/17 04/24/17 00:10 23:23 22:41 POC Glucose 139 H 127 H 132 H 04/24/17 04/24/17 04/24/17 21:48 20:23 18:16 POC Glucose 191 H 141 H 148 H 04/24/17 16:52 POC Glucose 152 H Phys Exam - Physical Examination Constitutional: NAD HEENT: PERRLA Neck: no JVD Respiratory: no wheezing drains in place Cardiovascular: RRR Gastrointestinal: non-tender Musculoskeletal: pulses present Neurological: moves all 4 limbs Psychiatric: normal affect Dx/Plan (1) CAD (coronary artery disease) Code(s): I25.10 - ATHSCL HEART DISEASE OF [place] CORONARY ARTERY W/O ANG PCTRS Status: Chronic Qualifiers: Comment: s/p cabg on 12/21 (2) Hematoma of rectus sheath Code(s): S30.1XXA - CONTUSION OF ABDOMINAL WALL, INITIAL ENCOUNTER Status: Acute (3) Hypothyroid Code(s): E03.9 - HYPOTHYROIDISM, UNSPECIFIED Status: Acute (4) Hyperlipidemia Code(s): E78.5 - HYPERLIPIDEMIA, UNSPECIFIED Status: Acute (5) HTN (hypertension) Code(s): I10 - ESSENTIAL (PRIMARY) HYPERTENSION Status: Chronic Qualifiers: Comment: labile - Plan * f/u card and cvts plan * f/u labs
--- NOTE | 2017-04-26 01:43 | PRG ---
DATE OF SERVICE: 04/25/2017 SUBJECTIVE: Mr. Chantel Ohara is doing reasonably well. She has been having no complaints. She ve ry pleasantly wanted to shake my hand when I walked into the room and was very interactive. It is re ally hard to believe that she just had heart surgery. PHYSICAL EXAMINATION: VITAL SIGNS: She is afebrile, blood pressure 108/48, heart rate 91, respiratory rate 15. LUNGS: Co mpletely clear anteriorly. HEART: Regular rhythm. ABDOMEN: Soft. LABORATORY DATA: White count 11.7, hemoglobin 12.0, platelets 112,000. Sodium 145, potassium 4.1, c hloride 115, bicarb 21, BUN 23, creatinine 1.29. Intake and output is negative 263. IMPRESSION: 1. Status post coronary bypass grafting. 2. Advanced age. 3. Underlying mild dementia, most likely. 4. History of transient ischemic attack. 5. Peripheral vascular disease. 6. History of carotid surgery in the past. PLAN: Continue normal postoperative supportive care bypass, physical therapy, increase her activity, weaning from oxygen.
[2017-04-26] MEDS: Levothyroxine Sodium 75 MCG TAB PO SCH (05:58)
[2017-04-26] MEDS: Ketorolac Tromethamine 30 MG/ML VIAL IVP SCH (05:59)
[2017-04-26 06:03] LABS: Anion Gap 12 mmol/L (10-20); BUN (Urea Nitrogen) 32 mg/dL (9.8-20.1); Calc. Creatinine Clearance 0 mL/min (70-130); Calcium 8.1 mg/dL (7.8-10.44); Carbon Dioxide 21 mmol/L (23-31); Chloride 111 mmol/L (98-107); Estimated GFR-MDRD 26; Glucose 109 mg/dL (83-110); Potassium 3.9 mmol/L (3.5-5.1); Sodium 140 mmol/L (136-145)
[2017-04-26 06:19] LABS: Hemoglobin 10.4 g/dL (12.0-16.0); Mean Corpuscular HGB CONC 33.4 g/dL (32.0-36.0); Mean Corpuscular Hemoglobin 32.3 pg (27.0-31.0); Mean Corpuscular Volume 96.8 fl (81.0-99.0); Mean Platelet Volume 8.8 fL (7.4-10.4); Platelet Count 87 thou/uL (130-400); RBC Distribution Width 15.4 % (11.5-14.5); Red Blood Cell (RBC) Count 3.22 mill/uL (4.20-5.40)
[2017-04-26 07:38] LABS: Band 14 % (5-11); Lymphocytes 11 % (21-51); MDiff Complete? YES; Monocytes 8 % (0-10); Neutrophil 67 % (42-75); Nucleated RBC 1 % (0); PLT Morphology Comment Appears Decreased
[2017-04-26] MEDS: Aspirin 325 MG TAB PO SCH (09:20)
[2017-04-26] MEDS: Famotidine 20 MG TAB PO SCH (09:20)
[2017-04-26] MEDS: Nebivolol HCl 5 MG TAB PO SCH (09:20)
--- NOTE | 2017-04-26 10:02 | RAD ---
AP VIEW OF CHEST: Date: 04/26/17 HISTORY: Open heart surgery. FINDINGS: Comparison made to previous exam from 04/25/17. AP view of chest demonstrates removal of the mediastinal drains. Sternotomy wires seen. Mild cardiome mariah is noted. The lungs are well aerated. No evidence of acute intrathoracic abnormality is noted. IMPRESSION: Removal of mediastinal drains. No evidence of acute intrathoracic abnormality seen. POS: [facility]
--- NOTE | 2017-04-26 13:29 | PDOC.PN ---
- Subjective Encounter Start Date: 04/26/17 Encounter Start Time: 13:28 Patient seen and examined. No new complaints. No overnight events - Objective MAR Reviewed: Yes Vital Signs & Weight: Vital Signs (12 hours) Temp Pulse Resp Pulse Ox 04/26/17 11:55 98.6 F 04/26/17 08:00 98.6 F 82 16 94 L 04/26/17 07:57 76 17 96 04/26/17 07:00 98.1 F 04/26/17 03:00 97.8 F Weight Admit Weight 111 lb 3.2 oz Weight 119 lb 0.794 oz Most Recent Monitor Data Heart Rate from ECG 83 NIBP 109/48 NIBP BP-Mean 64 Respiration from ECG 16 SpO2 93 I&O: 04/25/17 04/26/17 04/27/17 06:59 06:59 06:59 Intake Total 1566.2 839 200 Output Total 1830 400 200 Balance -263.8 439 0 Result Diagrams: 04/26/17 04:10 04/26/17 04:10 Phys Exam - Physical Examination Constitutional: NAD HEENT: PERRLA Neck: no JVD Respiratory: no wheezing mid line scar seen Cardiovascular: no significant murmur Gastrointestinal: non-tender Musculoskeletal: pulses present Neurological: moves all 4 limbs Psychiatric: A&O x 3 Dx/Plan (1) CAD (coronary artery disease) Code(s): I25.10 - ATHSCL HEART DISEASE OF [place] CORONARY ARTERY W/O ANG PCTRS Status: Chronic Qualifiers: Comment: s/p cabg on 04/24 (2) Hematoma of rectus sheath Code(s): S30.1XXA - CONTUSION OF ABDOMINAL WALL, INITIAL ENCOUNTER Status: Acute (3) Hypothyroid Code(s): E03.9 - HYPOTHYROIDISM, UNSPECIFIED Status: Acute (4) Hyperlipidemia Code(s): E78.5 - HYPERLIPIDEMIA, UNSPECIFIED Status: Acute (5) HTN (hypertension) Code(s): I10 - ESSENTIAL (PRIMARY) HYPERTENSION Status: Chronic Qualifiers: Comment: labile - Plan * cont current mx * pt/ot * f/u card and cvts plan
[2017-04-26] MEDS: Ubidecarenone 50 MG CAP PO SCH (19:34)
[2017-04-26] MEDS ORDERED: TRAVATAN 0.004% EA EYE SCH (21:00)
--- NOTE | 2017-04-26 23:32 | PRG ---
DATE OF SERVICE: 04/26/2017 Ms. Ohara is doing great. She is sitting up in the bedside chair. She is in no distress. She is very hard of hearing, but her daughter helped with communicating. OBJECTIVE: VITAL SIGNS: She is afebrile, heart rate is in the 70s, respiratory rate 17, oximetry is 94, blood p ressure 134/55 this evening. Intake and output is positive for 39 this morning. LUNGS: Clear. HEART: Regular rhythm. ABDOMEN: Soft. EXTREMITIES: Without asymmetry. Her feet are warm. Chest radiograph shows no alveolar infiltrates. LABORATORY DATA: White count 12.9, hemoglobin 10.4, platelets 87,000. Sodium 140, potassium 3.9, chloride 111, bicarbonate 21, BUN 32, creatinine 1.87. IMPRESSION: 1. Status post coronary artery bypass grafting. 2. Acute renal insufficiency that should plateau and improve. 3. Underlying dementia. She does well when her daughter is in the room. She is stable from my [facility]. She can be transferred out whenever the cardiothoracic surgeons feel she is stable.
[2017-04-27] MEDS: Levothyroxine Sodium 75 MCG TAB PO SCH (05:41)
[2017-04-27 05:43] LABS: Anion Gap 9 mmol/L (10-20); BUN (Urea Nitrogen) 39 mg/dL (9.8-20.1); Calc. Creatinine Clearance 22 mL/min (70-130); Carbon Dioxide 23 mmol/L (23-31); Chloride 111 mmol/L (98-107); Estimated GFR-MDRD 31; Glucose 101 mg/dL (83-110); Potassium 4.1 mmol/L (3.5-5.1); Sodium 139 mmol/L (136-145)
[2017-04-27 05:55] LABS: Band 2 % (5-11); Hemoglobin 9.2 g/dL (12.0-16.0); Lymphocytes 10 % (21-51); MDiff Complete? YES; Mean Corpuscular HGB CONC 33.3 g/dL (32.0-36.0); Mean Corpuscular Hemoglobin 32.4 pg (27.0-31.0); Mean Corpuscular Volume 97.3 fl (81.0-99.0); Monocytes 11 % (0-10); Neutrophil 77 % (42-75); Platelet Count 82 thou/uL (130-400); RBC Distribution Width 15.1 % (11.5-14.5); Red Blood Cell (RBC) Count 2.84 mill/uL (4.20-5.40); White Blood Cell (WBC) Count 7.3 thou/uL (4.8-10.8)
[2017-04-27] MEDS: Aspirin 325 MG TAB PO SCH (07:50)
[2017-04-27] MEDS: Famotidine 20 MG TAB PO SCH ×2 (07:53→10:42)
[2017-04-27] MEDS ORDERED: Fluconazole In NaCl,Iso-Osm 200 MG in Premix Bag 1 BAG IVPB SCH (08:00)
[2017-04-27] MEDS ORDERED: Chloraseptic Spray 180 ml Bottle PO PRN (08:47)
[2017-04-27] MEDS ORDERED: Calcium Carbonate + Vit D 1 TAB PO SCH (09:00)
[2017-04-27] MEDS ORDERED: Guaifenesin DM 100-10/5 ML UDCUP PO PRN (09:22)
[2017-04-27] MEDS ORDERED: Bisacodyl 10 MG SUPP PR PRN (09:22)
[2017-04-27] MEDS ORDERED: Nitroglycerin 0.4 MG TAB 1 EACH SL PRN (09:22)
[2017-04-27] MEDS ORDERED: diphenhydrAMINE 25 MG CAP PO PRN (09:22)
[2017-04-27] MEDS ORDERED: Mineral Oil ENEMA PR PRN (09:22)
[2017-04-27] MEDS ORDERED: HYDROcodone/Acetaminophen 5/325 mg Tablet PO PRN (09:22)
[2017-04-27] MEDS ORDERED: Milk Of Magnesia 30 ML UDCUP PO PRN (09:22)
[2017-04-27] MEDS ORDERED: Mag-Al 1200 mg/1200 mg/30 ML UDCUP PO PRN (09:22)
[2017-04-27] MEDS ORDERED: Artificial Tears 18 DROP/0.9 ML EA EYE PRN (09:22)
[2017-04-27] MEDS: Aspirin 325 mg Enteric Coated Tablet PO SCH (10:42)
[2017-04-27] MEDS ORDERED: Atropine Sulfate 1 mg/10 ml Syringe ONE (10:52)
[2017-04-27] MEDS ORDERED: Magnesium 5 GM/10 ML Abboject SYRINGE ONE ×2 (10:54→15:35)
[2017-04-27] MEDS ORDERED: Magnesium Sulfate 2 GM/100 ML BAG ONE (10:58)
[2017-04-27] MEDS ORDERED: Metoprolol Tartrate 5 MG/5 ML VIAL ONE (11:01)
[2017-04-27] MEDS ORDERED: Digoxin 0.5 MG/2 ML AMP ONE ×2 (11:08)
[2017-04-27] MEDS ORDERED: Vecuronium 10 MG VIAL ONE ×2 (11:16→17:01)
[2017-04-27] MEDS ORDERED: Midazolam HCl 2 mg/2 ml Vial ONE (11:16)
[2017-04-27] MEDS ORDERED: DOPamine 400 MG/D5W 250 ML 250 ML ONE (11:37)
[2017-04-27] MEDS ORDERED: Norepinephrine 8 MG/0.9% NS 250 ML ONE (11:44)
[2017-04-27] MEDS ORDERED: Lorazepam 2 MG/ML VIAL ONE (11:48)
[2017-04-27 12:11] LABS: ALT (SGPT) 17 U/L (8-55); AST (SGOT) 103 U/L (5-34); Albumin 2.4 g/dL (3.4-4.8); Alkaline Phosphatase 125 U/L (40-150); Anion Gap 18 mmol/L (10-20); BUN (Urea Nitrogen) 39 mg/dL (9.8-20.1); Bilirubin, Total 0.7 mg/dL (0.2-1.2); Calc. Creatinine Clearance 20 mL/min (70-130); Calcium 7.9 mg/dL (7.8-10.44); Carbon Dioxide 16 mmol/L (23-31); Chloride 110 mmol/L (98-107); Estimated GFR-MDRD 28; Globulin 1.8 g/dL (2.4-3.5); Glucose 282 mg/dL (83-110); Magnesium 3.9 mg/dL (1.6-2.6); Phosphorus 7.5 mg/dL (2.3-4.7); Potassium 4.1 mmol/L (3.5-5.1); Protein, Total 4.2 g/dL (6.0-8.3); Sodium 140 mmol/L (136-145)
[2017-04-27 12:20] LABS: Actual Bicarbonate (HCO3a) 13.7 mEq/L (22-26); Base Excess (BEa) -12.4 mEq/L (0 (+/-) 2.5); CO2 Tension 32.2 mmHg (35.0-45.0); Calcium, Ionized 1.1 mmol/L (1.12-1.30); Hematocrit-ABG 22.5 % (36.0-47.0); Hemoglobin (Hb) 8.2 g/dL (12.0-16.0); O2 Tension (PaO2) 103.9 mmHg (80.0-100.0); pH, Arterial 7.25 (7.35-7.45)
[2017-04-27 12:21] LABS: CKMB 12.4 ng/mL (0-6.6); Troponin I 9.863 ng/mL (< 0.028)
[2017-04-27 12:21] LABS: Puncture Site RB
[2017-04-27 12:22] LABS: #Basophils 0.1 thou/uL (0.0-0.2); #Eosinphils 0.2 thou/uL (0.0-0.7); #Lymphocytes 3.3 thou/uL (1.20-3.40); #Neutrophils 6.8 thou/uL (1.40-6.50); %Basophils 0.9 % (0.0-1.0); %Eosinophils 1.5 % (0.0-10.0); %Lymphocytes 28.7 % (21.0-51.0); %Monocytes 8.7 % (0.0-10.0); %Neutrophils 60.1 % (42.0-75.0); Hemoglobin 9.4 g/dL (12.0-16.0); Mean Corpuscular HGB CONC 32.3 g/dL (32.0-36.0); Mean Corpuscular Hemoglobin 32.4 pg (27.0-31.0); Mean Platelet Volume 8.7 fL (7.4-10.4); PLT Morphology Comment Appears Decreased; Platelet Count 107 thou/uL (130-400); RBC Distribution Width 14.9 % (11.5-14.5); Red Blood Cell (RBC) Count 2.89 mill/uL (4.20-5.40); White Blood Cell (WBC) Count 11.3 thou/uL (4.8-10.8)
[2017-04-27] MEDS: Fentanyl 100 MCG/2 ML VIAL SLOW IVP PRN ×5 (12:30→15:30)
[2017-04-27] MEDS: Furosemide 20 MG TAB PO SCH (13:21)
[2017-04-27] MEDS: Carvedilol 3.125 MG TAB PO SCH ×2 (13:21→16:18)
--- NOTE | 2017-04-27 13:59 | RAD ---
CHEST 1 VIEW: Date: 04/27/17 HISTORY: Intubation. COMPARISON: Chest 1 view from prior day. FINDINGS: The endotracheal tube tip extends into the right mainstem bronchus approximately 8.0 mm. There is ate lectasis in both lower lobes. No pneumothorax. IMPRESSION: 1. Right mainstem intubation 8.0 mm. Recommend retraction approximately 3.0 cm. 2. Atelectatic changes in lung bases. Provider in the CCU notified of findings via telephone at 1239 hours. CODE CR. POS: [facility]
[2017-04-27 15:11] LABS: Actual Bicarbonate (HCO3a) 19.9 mEq/L (22-26); Base Excess (BEa) -1.5 mEq/L (0 (+/-) 2.5); Calcium, Ionized 1.1 mmol/L (1.12-1.30); Hematocrit-ABG 27.4 % (36.0-47.0); Hemoglobin (Hb) 9.6 g/dL (12.0-16.0); O2 Tension (PaO2) 71.8 mmHg (80.0-100.0)
[2017-04-27 15:18] LABS: CO2 Tension 23.4 mmHg (35.0-45.0); Puncture Site LBA; pH, Arterial 7.55 (7.35-7.45)
[2017-04-27] MEDS ORDERED: Fentanyl 100 MCG/2 ML VIAL SLOW IVP PRN (15:34)
[2017-04-27] MEDS ORDERED: EPINEPHrine 1 MG/10 ML Abboject SYRINGE ONE (15:35)
[2017-04-27] MEDS ORDERED: DISCONTINUE PREVIOUS NARCOTIC PAIN MEDICATIONS AND BENZODIAZEPINES FS SCH (15:38)
[2017-04-27] MEDS ORDERED: Fentanyl CADD 250 ML IVPB SCH (15:38)
[2017-04-27] MEDS ORDERED: Propofol 1,000 MG/100 ML VIAL IV PRN (15:38)
[2017-04-27] MEDS ORDERED: Lorazepam 2 MG/ML VIAL SLOW IVP PRN (15:38)
[2017-04-27] MEDS ORDERED: Morphine 4 MG/ML VIAL SLOW IVP PRN (15:40)
[2017-04-27] MEDS ORDERED: DOPamine 400 MG/D5W 250 ML 250 ML IVPB SCH (15:45)
--- NOTE | 2017-04-27 15:58 | RAD ---
AP VIEW CHEST: Date: 04/27/17 HISTORY: 86-year-old female who is intubated, respiratory distress. FINDINGS: Comparison made to previous exam from 04/26/17. AP view of chest demonstrates sternotomy wires seen. There is a nasogastric tube in place. The patien t is intubated. Endotracheal tube is in good position. No evidence of acute intrathoracic abnormality is seen. No evidence of effusions, pneumonia, or pneumothorax seen. IMPRESSION: Interval intubation of the patient. No evidence of acute intrathoracic abnormality seen. POS: [facility]
--- NOTE | 2017-04-27 16:38 | PDOC.PN ---
- Subjective Encounter Start Date: 04/27/17 Encounter Start Time: 16:37 pt coded today. went into torsades and v fib intubated now. on levophed, on dopamine - Objective MAR Reviewed: Yes Vital Signs & Weight: Vital Signs (12 hours) Temp Pulse Pulse Pulse Resp BP BP 04/27/17 15:01 86 04/27/17 14:00 97.3 F L 04/27/17 13:29 65 04/27/17 12:00 96.9 F L 04/27/17 11:15 65 04/27/17 11:10 65 04/27/17 11:05 125 H 31 H 04/27/17 08:10 76 73 164/72 H 126/64 04/27/17 08:00 97.8 F 78 16 04/27/17 07:00 97.8 F Pulse Ox Pulse Ox Pulse Ox 04/27/17 15:01 04/27/17 14:00 04/27/17 13:29 04/27/17 12:00 04/27/17 11:15 04/27/17 11:10 04/27/17 11:05 04/27/17 08:10 96 95 04/27/17 08:00 95 04/27/17 07:00 Weight Admit Weight 111 lb 3.2 oz Weight 118 lb 9.739 oz Most Recent Monitor Data Heart Rate from ECG 86 NIBP 135/64 NIBP BP-Mean 84 Respiration from ECG 28 SpO2 96 I&O: 04/26/17 04/27/17 04/28/17 06:59 06:59 06:59 Intake Total 653 903 6775 Output Total 400 650 Balance 855 718 3817 Result Diagrams: 04/27/17 11:40 04/27/17 11:40 Phys Exam - Physical Examination intubated HEENT: moist MMs Neck: no JVD Respiratory: no wheezing Cardiovascular: no significant murmur Gastrointestinal: soft, non-tender Musculoskeletal: pulses present Dx/Plan (1) CAD (coronary artery disease) Code(s): I25.10 - ATHSCL HEART DISEASE OF [place] CORONARY ARTERY W/O ANG PCTRS Status: Chronic Qualifiers: Comment: s/p cabg on 04/24 (2) Hematoma of rectus sheath Code(s): S30.1XXA - CONTUSION OF ABDOMINAL WALL, INITIAL ENCOUNTER Status: Acute (3) Hypothyroid Code(s): E03.9 - HYPOTHYROIDISM, UNSPECIFIED Status: Acute (4) Hyperlipidemia Code(s): E78.5 - HYPERLIPIDEMIA, UNSPECIFIED Status: Acute (5) HTN (hypertension) Code(s): I10 - ESSENTIAL (PRIMARY) HYPERTENSION Status: Chronic Qualifiers: Comment: labile (6) Cardiac arrest Code(s): I46.9 - CARDIAC ARREST, CAUSE UNSPECIFIED Status: Acute (7) Ventricular fibrillation Code(s): I49.01 - VENTRICULAR FIBRILLATION Status: Acute (8) Acute respiratory failure Code(s): J96.00 - ACUTE RESPIRATORY FAILURE, UNSP W HYPOXIA OR HYPERCAPNIA Status: Acute - Plan * continue current care * f/u card plan * pulmonary to help with vent mx
[2017-04-27] MEDS ORDERED: Vecuronium 10 MG VIAL IV PRN (17:25)
[2017-04-27] MEDS ORDERED: Heparin 5,000 UNITS/ML VIAL SLOW IVP SCH (17:30)
[2017-04-27] MEDS: Enoxaparin Sodium 40 MG/0.4 ML SYRINGE SC SCH (17:44)
[2017-04-27] MEDS: Amiodarone HCl 450 MG, Admixture Fee 1 EACH in Dextrose 5% in Water 250 ML IVPB SCH (17:53)
[2017-04-27] MEDS: Ubidecarenone 50 MG CAP PO SCH (22:04)
[2017-04-27] MEDS: Atorvastatin Calcium 40 MG TAB PO SCH (22:04)
--- NOTE | 2017-04-27 22:54 | PRG ---
DATE OF SERVICE: 04/27/2017 This note is a documentation of 120 minutes of critical care time throughout the day today. Chantel Ohara looked well this morning. She is up in the chair. She is complaining of sore throat. She had a coated tongue. Her vital signs have been stable overnight. PHYSICAL EXAMINATION: LUNGS: Clear. HEART: Regular rhythm. ABDOMEN: Soft. Her tubes were out. It was anticipated she will be transferred out today. LABORATORY DATA: Her white count is 7.3, hemoglobin 9.2, platelets 82,000. Sodium 139, potassium 4.1, chloride 111, bicarbonate 23, BUN 39, creatinine 1.6. There is no blood g as today. It was felt she was stable for transfer out. It was felt that she could be moved to a telemetry bed. Diflucan was ordered for what was felt to be early thrush. She did well. At 10:45, [facility] was called. She had torsades. She was cardioverted without intubation. At 10:52, she had a recurrence of torsades. When she came back, she was in atrial fibrillation with a rapid ventricular response. She received 1 50 mg amiodarone, and 2 grams of magnesium during the code. She received 2.5 mg of Lopressor. This helped to control her rate, but by that point, she was starti ng to look fatigued. We quickly laid her down and I, under direct visualization with laryngoscope, i ntubated her. She had bilateral equal breath sounds. She had 2 brief periods of CPR during these events. She ended up having dopamine and Levophed started. Chest radiograph showed endotracheal tube at the main analilia, so was pulled back 2 cm. Follow up chest radiograph showed no pulmonary infiltrates. She did awake after the first episode of torsades and was asking for water. After her intubation, she awakened before we started using sedation and was moving all of her extremi ties and reaching at things. This evening, she appears to have stabilized hemodynamically. Her heart rate is in the 80s. Respira tory rate is in the teens. She has no wheezes on exam. The only thing that is concerning is hypoxia that is way out of proporti on to her x-ray findings. Her initial post code blood gas was 7.25, CO2 of 32, pO2 of 103, and 100% oxygen rate at 20. Approximately 3-1/2 hours later, her blood gas was pH 7.55, CO2 of 23, pO2 of 71. She did receive 2 amps of bicarbonate after the first blood gas. She is still on 100% oxygen and a repeat chest radiograph showed no progression of pulmonary edema or anything to look like pneumonia: Two blood cultures were ordered. I have recommended anticoagulation. In my opinion, she is too unstable to go down for a nuclear perf usion study and really would not tolerate being in the Radiology department for the 30 minutes it is required for the test. We have given her a heparin bolus and started on Lovenox subcu, although at a little lower dose, then 1 mg/kg, she is a very small lady and I actually suspect her renal function will decline after this. Her creatinine clearance is right at 30. If her creatinine clearance declines, then her Lovenox dose will probably need to be switched to just simply between 50 and 60 mg/kg once a day. Hopefully, she will just gradually improve. Dr. Desai attended at the bedside during this event a nd Dr. Aviles after he had finished his bypass surgery, presented at the bedside. I met with the alessio mistry twice and answered all of their questions. I also probably spent another half hour at the [facility] just going over lab work and imaging. The stat echocardiogram that was done did not show tamponade. She did have global hypokinesis which was surprising. Hopefully, this is just stunned myocardium aft er the code.
[2017-04-28 05:25] LABS: Anion Gap 14 mmol/L (10-20); BUN (Urea Nitrogen) 33 mg/dL (9.8-20.1); Calc. Creatinine Clearance 33 mL/min (70-130); Calcium 7.9 mg/dL (7.8-10.44); Carbon Dioxide 22 mmol/L (23-31); Chloride 111 mmol/L (98-107); Estimated GFR-MDRD 50; Glucose 109 mg/dL (83-110); Potassium 3.6 mmol/L (3.5-5.1); Sodium 143 mmol/L (136-145)
[2017-04-28] MEDS: Norepinephrine 8 MG/250 ML BAG IVPB PRN (06:16)
[2017-04-28] MEDS: Enoxaparin Sodium 40 MG/0.4 ML SYRINGE SC SCH (06:16)
[2017-04-28] MEDS: Levothyroxine Sodium 75 MCG TAB PO SCH (06:17)
[2017-04-28 06:25] LABS: Band 1 % (5-11); Hemoglobin 9.6 g/dL (12.0-16.0); Lymphocytes 14 % (21-51); MDiff Complete? YES; Mean Corpuscular HGB CONC 34.1 g/dL (32.0-36.0); Mean Corpuscular Hemoglobin 32.7 pg (27.0-31.0); Mean Corpuscular Volume 95.9 fl (81.0-99.0); Mean Platelet Volume 8.3 fL (7.4-10.4); Monocytes 13 % (0-10); Neutrophil 72 % (42-75); Platelet Count 126 thou/uL (130-400); RBC Distribution Width 14.7 % (11.5-14.5); Red Blood Cell (RBC) Count 2.92 mill/uL (4.20-5.40); White Blood Cell (WBC) Count 8.1 thou/uL (4.8-10.8)
[2017-04-28 07:04] LABS: Actual Bicarbonate (HCO3a) 19.6 mEq/L (22-26); Base Excess (BEa) -1.4 mEq/L (0 (+/-) 2.5); Calcium, Ionized 1.1 mmol/L (1.12-1.30); Hematocrit-ABG 26.4 % (36.0-47.0); Hemoglobin (Hb) 10.4 g/dL (12.0-16.0); O2 Tension (PaO2) 217.7 mmHg (80.0-100.0)
[2017-04-28 07:09] LABS: CO2 Tension 22.2 mmHg (35.0-45.0); Puncture Site RBA; pH, Arterial 7.56 (7.35-7.45)
[2017-04-28] MEDS: Carvedilol 3.125 MG TAB PO SCH ×2 (08:48→16:43)
[2017-04-28] MEDS: Potassium Chloride 10 MEQ TAB PO SCH (09:23)
[2017-04-28] MEDS: Furosemide 20 MG TAB PO SCH (09:23)
[2017-04-28] MEDS: Aspirin 325 mg Enteric Coated Tablet PO SCH (09:23)
[2017-04-28] MEDS: Famotidine 20 MG TAB PO SCH (09:24)
[2017-04-28] MEDS: Amiodarone HCl 450 MG, Admixture Fee 1 EACH in Dextrose 5% in Water 250 ML IVPB SCH (09:32)
--- NOTE | 2017-04-28 10:48 | RAD ---
CHEST 1 VIEW: Date: 04/28/17 HISTORY: Ventilated patient. COMPARISON: Chest 1 view from prior day. FINDINGS: Endotracheal tube tip is craniad to the analilia, approximately 1.5 cm. Right middle and right lower lo be air space opacities present, as well as small right effusion. Granuloma left upper lobe. Endotrach eal tube tip below the diaphragm, out of field of view. IMPRESSION: Right lower lobe air space opacity and small right effusion. Life support tubes are unchanged. POS: [facility]
--- NOTE | 2017-04-28 11:18 | PDOC.PULCC ---
CCU Progress Note: Subj/Obj - Subjective Date: 04/28/17 Time: 11:16 Subjective: Arouses with stimulation. Family at bedside. D/w them at length. Pt able to move and follow - Objective Allergies/Adverse Reactions: Allergies Allergy/AdvReac Type Severity Reaction Status Date / Time No Known Allergies Allergy Verified 04/21/17 02:42 Medications: Current Medications Acetaminophen (Tylenol) 650 mg PO Q6H PRN PRN Reason: Headache/Fever or Pain Hydrocodone Bitart/Acetaminophen ([place] 5/325) 1 tab PO Q4H PRN PRN Reason: Moderate Pain (4-6) Al Hydroxide/Mg Hydroxide (Maalox) 30 ml PO Q4H PRN PRN Reason: Indigestion Albuterol/Ipratropium (Duoneb) 3 ml NEB Q6H PRN PRN Reason: Respiratory Distress Artificial Tears (Tears Naturale) 0 drop EA EYE PRN PRN PRN Reason: Dry Eyes Aspirin (Ecotrin) 325 mg PO DAILY [facility] Last Admin: 04/28/17 09:23 Dose: 325 mg Atorvastatin Calcium (Lipitor) 40 mg PO [facility] Last Admin: 04/27/17 22:04 Dose: Not Given Bisacodyl (Dulcolax) 10 mg PO Q12H PRN PRN Reason: Constipation Bisacodyl (Dulcolax) 10 mg [place] Q12H PRN PRN Reason: Constipation Carvedilol (Coreg) 3.125 mg PO BID-[facility] Last Admin: 04/28/17 08:48 Dose: Not Given Coenzyme Q10 (Coenzyme Q10) 100 mg PO [facility] Last Admin: 04/27/17 22:04 Dose: Not Given Diphenhydramine HCl (Benadryl) 25 mg PO Q6H PRN PRN Reason: Itching & Insomnia or Master Tha Enoxaparin Sodium (Lovenox) 60 mg SC 0600,1800 [facility] Famotidine (Pepcid) 20 mg PO DAILY [facility] Last Admin: 04/28/17 09:24 Dose: 20 mg Fentanyl (Sublimaze) 25 mcg SLOW IVP Q2H PRN PRN Reason: Moderate breakthrough pain Last Admin: 04/27/17 15:30 Dose: 25 mcg Fentanyl (Sublimaze) 25 mcg SLOW IVP Q30M PRN PRN Reason: DONY WITH BP FOR AGITATION Last Admin: 04/27/17 15:30 Dose: 25 mcg Furosemide (Lasix) 20 mg PO DAILY [facility] Last Admin: 04/28/17 09:23 Dose: 20 mg Guaifenesin/Dextromethorphan (Robitussin Dm) 15 ml PO Q4H PRN PRN Reason: Cough Hydralazine HCl (Apresoline) 10 mg SLOW IVP Q6H PRN PRN Reason: To Maintain SBP< 140mmHG Amiodarone HCl 450 mg/Miscellaneous Medication 1 each/ Dextrose/Water 259 mls @ 0 mls/hr IVPB INF [facility]; As Directed PRN Reason: Protocol Last Admin: 04/28/17 09:32 Dose: 259 mls Fentanyl (Fentanyl Cadd) 250 mls @ 0 mls/hr IVPB INF [facility]; Titrate PRN Reason: Protocol Stop: 05/27/17 15:38 Last Admin: 04/27/17 15:49 Dose: 250 mls Fentanyl Citrate (Fentanyl Bolus) 250 mls @ 0 mls/hr IVPB PRN PRN; As Directed PRN Reason: Breakthrough pain Stop: 05/27/17 15:38 Norepinephrine Bitartrate (Levophed) 250 mls @ 0 mls/hr IVPB INF PRN; Protocol ; Titrate PRN Reason: Blood Pressure Last Admin: 04/28/17 06:16 Dose: 250 mls Levothyroxine Sodium (Synthroid) 75 mcg PO 0600 [facility] Last Admin: 04/28/17 06:17 Dose: Not Given Lorazepam (Ativan) 2 mg SLOW IVP Q2H PRN PRN Reason: Anxiety to achieve Ceron 2-3 Stop: 05/27/17 15:38 Magnesium Hydroxide (Milk Of Magnesium) 30 ml PO Q12H PRN PRN Reason: Constipation Mineral Oil (Fleet Mineral Oil) 133 ml [place] DAILYPRN PRN PRN Reason: Constipation Morphine Sulfate (Morphine) 2 mg SLOW IVP Q2H PRN PRN Reason: .BREAKTHROUGH PAIN Nitroglycerin (Nitrostat) 0.4 mg SL Q5MIN PRN PRN Reason: Chest Pain Discontinue Previous Narcotic Pain Medications And Benzodiazepines 1 each FS .ONE [facility] Stop: 05/27/17 15:38 Ondansetron HCl (Zofran) 4 mg IVP Q6H PRN PRN Reason: Nausea/Vomiting Phenol (Chloraseptic [place] 180 Ml Bot) 0 ml PO Q1H PRN PRN Reason: SORE THROAT Potassium Chloride (Klor-Con 10) 10 meq PO QAM-[facility] Last Admin: 04/28/17 09:23 Dose: 10 meq Propofol (Diprivan) 1,000 mg IV INF PRN; Protocol PRN Reason: TO ACHIEVE CERON SCORE 2-3 Stop: 05/27/17 15:38 Sodium Chloride (Flush - Normal Saline) 10 ml IVF PRN PRN PRN Reason: Saline Flush MAR Reviewed: Yes Vital Signs and I&O: Vital Signs Temp 98.6 F 04/28/17 07:37 Pulse 80 04/28/17 07:37 Resp 10 L 04/28/17 10:00 BP 145/67 H 04/28/17 06:48 Pulse Ox 93 L 04/28/17 07:37 Intake & Output 04/27/17 04/28/17 04/28/17 18:59 06:59 18:59 Intake Total 3499 664.4 Output Total 325 320 110 Balance 3174 344.4 -110 Weight 2.166 oz Intake: Intake, IV Amount 3299 664.4 Amiodarone HCl 450 mg 211 192 Admixture Fee 1 each In Dextrose 5% in Water 250 ml @ As Directed IVPB INF [facility] Rx#:[id number] DOPamine 400 MG/D5W 250 59 117 ML 250 ml @ As Directed IVPB INF [facility] Rx#:[id number] Fentanyl 20 MCG/ML 250 ml 30.2 @ Titrate IVPB INF [facility] Rx#:[id number] Fluconazole In NaCl,Iso- 100 Osm 200 mg In Premix Bag 1 bag @ 100 mls/hr IVPB NOW [facility] Rx#:[id number] Norepinephrine 8 MG/0.9% 157 94.2 NS 250 ml @ Titrate IVPB INF PRN Rx#:[id number] Sodium Chloride 0.9% 10 2772 231 ml IVF PRN PRN Rx#: [id number] Oral 200 Output: Output, Marr 325 320 110 Other: Voiding Method Indwelling Catheter Indwelling Catheter Indwelling Catheter Vent Setting: SIMV 18/500/[id number] 100% Spontaneous Breathing Test: not done CCU Progress Note: Exam - Physical Exam Constitutional: NAD HEENT: PERRLA, moist MMs, sclera anicteric Neck: no nodes, no JVD Cardiovascular: RRR Deviation from normal: well healed midline scar Deviation from normal: tubular breath sounds B Gastrointestinal: soft, non-tender Musculoskeletal: no edema, pulses present Neurological: non-focal, moves all 4 limbs Lymphatic: no nodes Skin: no rash - Labs Result Diagrams: 04/28/17 04:20 04/28/17 04:20 Lab results: Laboratory Results - last 24 hr 04/27/17 04/27/17 04/27/17 11:40 11:40 11:40 WBC 11.3 H RBC 2.89 L Hgb 9.4 L Hct 29.0 L MCV 100.0 H MCH 32.4 H MCHC 32.3 RDW 14.9 H Plt Count 107 L MPV 8.7 Neutrophils % 60.1 Neutrophils % (Manual) Not Reportable Band Neuts % (Manual) Lymphocytes % 28.7 Lymphocytes % (Manual) Monocytes % 8.7 Monocytes % (Manual) Eosinophils % 1.5 Basophils % 0.9 Neutrophils # 6.8 H Lymphocytes # 3.3 Monocytes # 1.0 H Eosinophils # 0.2 Basophils # 0.1 Plt Morphology Comment Appears Decreased L Specimen Type Puncture Site Bicarbonate Actual ABG pH ABG pCO2 ABG pO2 ABG O2 Sat Calc/Valentin ABG O2 Content ABG Base Excess ABG Hematocrit ABG Hemoglobin ABG Oxyhemoglobin ABG Carboxyhemoglobin ABG Methemoglobin ABG Deoxyhemoglobin Iglesia Test A-a O2 Gradient Ionized Calcium Mode of Support Mechanical Rate Inspired O2 Tidal Volume Pressure Support PEEP or CPAP Sodium 140 Potassium 4.1 Chloride 110 H Carbon Dioxide 16 L Anion Gap 18 BUN 39 H Creatinine 1.74 H Estimated GFR (MDRD) 28 Glucose 282 H Calcium 7.9 Phosphorus 7.5 H Magnesium 3.9 H Total Bilirubin 0.7 AST 103 H ALT 17 Alkaline Phosphatase 125 CK-MB (CK-2) 12.4 H* Troponin I 9.863 H* Serum Total Protein 4.2 L Albumin 2.4 L Globulin 1.8 L Albumin/Globulin Ratio 1.3 Blood Type Antibody Screen Crossmatch 04/27/17 04/27/17 04/27/17 11:45 14:03 15:15 WBC RBC Hgb Hct MCV MCH MCHC RDW Plt Count MPV Neutrophils % Neutrophils % (Manual) Band Neuts % (Manual) Lymphocytes % Lymphocytes % (Manual) Monocytes % Monocytes % (Manual) Eosinophils % Basophils % Neutrophils # Lymphocytes # Monocytes # Eosinophils # Basophils # Plt Morphology Comment Specimen Type ARTERIAL ARTERIAL Puncture Site RB LBA Bicarbonate Actual 13.7 L 19.9 L ABG pH 7.25 L* 7.55 H* ABG pCO2 32.2 L 23.4 L* ABG pO2 103.9 H 71.8 L ABG O2 Sat Calc/Valentin 97.6 97.2 ABG O2 Content 11.2 L 12.9 L ABG Base Excess -12.4 L -1.5 ABG Hematocrit 22.5 L 27.4 L ABG Hemoglobin 8.2 L 9.6 L ABG Oxyhemoglobin 95.7 95.6 ABG Carboxyhemoglobin 1.5 1.1 ABG Methemoglobin 0.5 0.5 ABG Deoxyhemoglobin 2.3 2.7 Iglesia Test POSITIVE A-a O2 Gradient 570.850 H 614.950 H Ionized Calcium 1.1 L 1.1 L Mode of Support SIMV SIMV Mechanical Rate 20 28 Inspired O2 100 100 Tidal Volume 400 400 Pressure Support 10 10 PEEP or CPAP 5.0 10.0 Sodium 140 142 Potassium 3.6 L 3.7 Chloride 110 H 108 H Carbon Dioxide Anion Gap BUN Creatinine Estimated GFR (MDRD) Glucose Calcium Phosphorus Magnesium Total Bilirubin AST ALT Alkaline Phosphatase CK-MB (CK-2) Troponin I Serum Total Protein Albumin Globulin Albumin/Globulin Ratio Blood Type O POSITIVE Antibody Screen NEGATIVE Crossmatch See Detail 04/28/17 04/28/17 04/28/17 03:30 04:20 04:20 WBC 8.1 RBC 2.92 L Hgb 9.6 L Hct 28.0 L MCV 95.9 MCH 32.7 H MCHC 34.1 RDW 14.7 H Plt Count 126 L MPV 8.3 Neutrophils % Neutrophils % (Manual) 72 Band Neuts % (Manual) 1 L Lymphocytes % Lymphocytes % (Manual) 14 L Monocytes % Monocytes % (Manual) 13 H Eosinophils % Basophils % Neutrophils # Lymphocytes # Monocytes # Eosinophils # Basophils # Plt Morphology Comment Specimen Type ARTERIAL Puncture Site RBA Bicarbonate Actual 19.6 L ABG pH 7.56 H* ABG pCO2 22.2 L* ABG pO2 217.7 H ABG O2 Sat Calc/Valentin 99.6 ABG O2 Content 14.8 L ABG Base Excess -1.4 ABG Hematocrit 26.4 L ABG Hemoglobin 10.4 L ABG Oxyhemoglobin 98.1 H ABG Carboxyhemoglobin 0.9 ABG Methemoglobin 0.6 ABG Deoxyhemoglobin 0.4 Iglesia Test A-a O2 Gradient 474.550 H Ionized Calcium 1.1 L Mode of Support SIMV/PSV Mechanical Rate 18 Inspired O2 100 Tidal Volume 500 Pressure Support 10 PEEP or CPAP 10.0 Sodium 141 143 Potassium 3.5 L 3.6 Chloride 108 H 111 H Carbon Dioxide 22 L Anion Gap 14 BUN 33 H Creatinine 1.05 Estimated GFR (MDRD) 50 Glucose 109 Calcium 7.9 Phosphorus Magnesium Total Bilirubin AST ALT Alkaline Phosphatase CK-MB (CK-2) Troponin I Serum Total Protein Albumin Globulin Albumin/Globulin Ratio Blood Type Antibody Screen Crossmatch CCU Progress Note: A/P - Problems (1) Acute respiratory failure Current Visit: Yes Status: Acute Code(s): J96.00 - ACUTE RESPIRATORY FAILURE , UNSP W HYPOXIA OR HYPERCAPNIA (2) Cardiac arrest Current Visit: Yes Status: Acute Code(s): I46.9 - CARDIAC ARREST, CAUSE UNSPECIFIED (3) Ventricular fibrillation Current Visit: Yes Status: Acute Code(s): I49.01 - VENTRICULAR FIBRILLATION (4) SILVIA (acute kidney injury) Current Visit: No Status: Acute Code(s): N17.9 - ACUTE KIDNEY FAILURE, UNSPECIFIED - Time Spent with Patient Time: 35 min CC time - Plan Plan: Check doppler of LE. Doubt the events of yesterday are related to PE, but keeping anticoagulated for now Adjusted vent rate, PEEP, and FiO2 Stop Dopamine, wean levophed adjusted lovenox dose to 1 mg/kg q 12 discussed with family at bedside
--- NOTE | 2017-04-28 12:30 | EKG ---
Test Reason : Blood Pressure : / mmHG Vent. Rate : 090 BPM Atrial Rate : 093 BPM P-R Int : 000 ms QRS Dur : 090 ms QT Int : 342 ms P-R-T Axes : 000 081 067 degrees QTc Int : 418 ms Accelerated Junctional rhythm ST elevation, consider early repolarization, pericarditis, or injury Abnormal ECG Confirmed by DANAE LÓPEZ ([id number]) on 04/28/2017 12:30:39 PM Referred By: ROMAN Confirmed By:DANAE LÓPEZ
--- NOTE | 2017-04-28 12:33 | ULT ---
BILATERAL LOWER EXTREMITY VENOUS DOPPLER: Date: 04/28/17 HISTORY: Evaluate for deep venous thrombosis. Leg swelling. COMPARISON: None. TECHNIQUE: Real-time Ying scale and color Doppler with spectral analysis of the bilateral lower extremity venous system was performed with the linear transducer. Bilateral common femoral, femoral, proximal portion s of greater saphenous and deep femoral veins, as well as the popliteal and posterior tibial veins we re interrogated. FINDINGS: Normal flow, augmentation, and compression. IMPRESSION: 1. No deep venous thrombosis. 2. Right knee popliteal cyst. POS: [facility]
--- NOTE | 2017-04-28 13:12 | PDOC.PN ---
- Subjective Encounter Start Date: 04/28/17 Encounter Start Time: 13:10 Patient seen and examined. No new complaints. No overnight events - Objective MAR Reviewed: Yes Vital Signs & Weight: Vital Signs (12 hours) Temp Pulse Resp BP Pulse Ox 04/28/17 12:00 10 L 04/28/17 11:22 75 102/54 L 04/28/17 11:00 98.4 F 04/28/17 10:00 10 L 04/28/17 08:00 10 L 04/28/17 07:37 98.6 F 80 9 L 93 L 04/28/17 07:00 98.6 F 04/28/17 06:48 82 145/67 H 04/28/17 06:00 26 H 04/28/17 04:00 98.8 F 21 H 04/28/17 02:00 21 H Weight Admit Weight 111 lb 3.2 oz Weight 2.166 oz Most Recent Monitor Data Heart Rate from ECG 67 NIBP 103/52 NIBP BP-Mean 64 Respiration from ECG 15 SpO2 93 I&O: 04/27/17 04/28/17 04/29/17 06:59 06:59 06:59 Intake Total 877 4163.4 Output Total 650 645 190 Balance 227 3518.4 -190 Result Diagrams: 04/28/17 04:20 04/28/17 04:20 Phys Exam - Physical Examination intubated HEENT: PERRLA Neck: no JVD Respiratory: no wheezing Cardiovascular: no significant murmur Gastrointestinal: non-tender Musculoskeletal: pulses present Dx/Plan (1) CAD (coronary artery disease) Code(s): I25.10 - ATHSCL HEART DISEASE OF [place] CORONARY ARTERY W/O ANG PCTRS Status: Chronic Qualifiers: Comment: s/p cabg on 04/24 (2) Hematoma of rectus sheath Code(s): S30.1XXA - CONTUSION OF ABDOMINAL WALL, INITIAL ENCOUNTER Status: Acute (3) Hypothyroid Code(s): E03.9 - HYPOTHYROIDISM, UNSPECIFIED Status: Acute (4) Hyperlipidemia Code(s): E78.5 - HYPERLIPIDEMIA, UNSPECIFIED Status: Acute (5) HTN (hypertension) Code(s): I10 - ESSENTIAL (PRIMARY) HYPERTENSION Status: Chronic Qualifiers: Comment: labile (6) Cardiac arrest Code(s): I46.9 - CARDIAC ARREST, CAUSE UNSPECIFIED Status: Acute (7) Ventricular fibrillation Code(s): I49.01 - VENTRICULAR FIBRILLATION Status: Acute (8) Acute respiratory failure Code(s): J96.00 - ACUTE RESPIRATORY FAILURE, UNSP W HYPOXIA OR HYPERCAPNIA Status: Acute - Plan * check doppler of LE. r/o pe * pulm to manage vent Stop Dopamine, wean levophed adjusted lovenox dose to 1 mg/kg q 12 discussed with family at bedside
[2017-04-28] MEDS: Enoxaparin Sodium 60 MG/0.6 ML SYRINGE SC SCH (17:29)
[2017-04-28] MEDS ORDERED: Sodium Bicarb 50 MEQ/50 ML Abboject 8.4% SYRINGE ONE (17:49)
[2017-04-28] MEDS: Atorvastatin Calcium 40 MG TAB PO SCH (20:06)
[2017-04-28] MEDS: Ubidecarenone 50 MG CAP PO SCH (20:34)
[2017-04-29] MEDS: Amiodarone HCl 450 MG, Admixture Fee 1 EACH in Dextrose 5% in Water 250 ML IVPB SCH ×3 (01:29→13:49)
[2017-04-29] MEDS: Levothyroxine Sodium 75 MCG TAB PO SCH (05:17)
[2017-04-29] MEDS: Enoxaparin Sodium 60 MG/0.6 ML SYRINGE SC SCH ×2 (05:17→18:25)
[2017-04-29 05:20] LABS: Anion Gap 11 mmol/L (10-20); BUN (Urea Nitrogen) 38 mg/dL (9.8-20.1); Calc. Creatinine Clearance 26 mL/min (70-130); Calcium 7.9 mg/dL (7.8-10.44); Carbon Dioxide 24 mmol/L (23-31); Chloride 112 mmol/L (98-107); Estimated GFR-MDRD 35; Glucose 100 mg/dL (83-110); Potassium 4.2 mmol/L (3.5-5.1); Sodium 143 mmol/L (136-145)
[2017-04-29 05:53] LABS: Anisocytosis SLIGHT = 6-15 cells (100X) (0-5/hpf); Band 3 % (5-11); Hemoglobin 8.6 g/dL (12.0-16.0); Hypochromia SLIGHT = 6-15 cells (100X) (0-5/hpf); Lymphocytes 7 % (21-51); MDiff Complete? YES; Mean Corpuscular HGB CONC 32.4 g/dL (32.0-36.0); Mean Corpuscular Volume 98.8 fl (81.0-99.0); Mean Platelet Volume 7.4 fL (7.4-10.4); Monocytes 7 % (0-10); Neutrophil 83 % (42-75); Platelet Count 152 thou/uL (130-400); Polychromasia SLIGHT = 2-3 cells (100X) (0-2/hpf); RBC Distribution Width 14.4 % (11.5-14.5); Red Blood Cell (RBC) Count 2.69 mill/uL (4.20-5.40); White Blood Cell (WBC) Count 11.4 thou/uL (4.8-10.8)
[2017-04-29 07:36] LABS: Actual Bicarbonate (HCO3a) 20.1 mEq/L (22-26); Base Excess (BEa) -5.2 mEq/L (0 (+/-) 2.5); CO2 Tension 38.2 mmHg (35.0-45.0); Calcium, Ionized 1.1 mmol/L (1.12-1.30); Hematocrit-ABG 25.5 % (36.0-47.0); Hemoglobin (Hb) 8.3 g/dL (12.0-16.0); O2 Tension (PaO2) 111.2 mmHg (80.0-100.0); pH, Arterial 7.34 (7.35-7.45)
[2017-04-29 07:52] LABS: Puncture Site RRA
--- NOTE | 2017-04-29 08:38 | RAD ---
SINGLE VIEW CHEST: Date: 04/29/17 COMPARISON: 04/28/17. HISTORY: Ventilated patient with respiratory failure. FINDINGS: Single view of the chest shows normal sized cardiomediastinal silhouette. The patient is status post sternotomy. The lines and tubes are unchanged in position. There is no evidence of consolidation, mas s, or pleural effusion. IMPRESSION: Stable exam. POS: [facility]
[2017-04-29] MEDS: Aspirin 325 mg Enteric Coated Tablet PO SCH (08:42)
[2017-04-29] MEDS: Potassium Chloride 10 MEQ TAB PO SCH (08:43)
[2017-04-29] MEDS: Famotidine 20 MG TAB PO SCH (08:43)
[2017-04-29] MEDS: Furosemide 20 MG TAB PO SCH (08:43)
[2017-04-29] MEDS: Carvedilol 3.125 MG TAB PO SCH ×2 (08:44→18:25)
[2017-04-29] MEDS ORDERED: cefTRIAXone\\ROCEPHIN 1 GM in Sodium Chloride 0.9% 100 ML IVPB SCH (09:15)
--- NOTE | 2017-04-29 09:31 | PRG ---
DATE OF SERVICE: 04/29/2017 Intubated on the vent, sedated on 100 of fentanyl. She is still on amiodarone. PHYSICAL EXAMINATION: VITAL SIGNS: Pulse 73, blood pressure is better 151/66, sats are 100%, respirations 12. She is also on Levophed. We will try to decrease it, the blood pressure dropped in the 70s. I's and O's over t he last 24 hours is 4162 in, 648 out. CHEST: Chest revealed bilateral rhonchi. CARDIAC: Normal S1, S2. No gallops. ABDOMEN: Soft. LABORATORY DATA: White count 11,000, H&H 8 and 26, platelet count 52, pO2 was 110, pCO2 30%, 34 on a rate of 10, 500 tidal volume, 50%. Creatinine 1.42. X-ray shows a left-sided infiltrate. IMPRESSION: 1. Status post torsades. 2. Respiratory failure with a left-sided pneumonia. 3. Renal failure. 4. Status post coronary artery bypass graft. 5. Dementia. PLAN: At this stage, I have added Rocephin, continue sedation, blood pressure medication. Will wean when stable. I have started nutrition. One-half hour critical care time.
[2017-04-29] MEDS: cefTRIAXone\\ROCEPHIN 1 GM, Syringe 0.4 ML in Sterile Water 9.6 ML SLOW IVP SCH (09:49)
[2017-04-29] MEDS: Acetaminophen 325 MG TAB PO PRN (11:01)
--- NOTE | 2017-04-29 11:42 | PDOC.PN ---
- Subjective Encounter Start Date: 04/29/17 Encounter Start Time: 12:30 -: non-verbal Subjective: Patient sedated on vent. Still requiring a little bit of Levophed. - Objective MAR Reviewed: Yes Vital Signs & Weight: Vital Signs (12 hours) Temp Pulse Resp Pulse Ox 04/29/17 10:00 12 04/29/17 08:00 98.6 F 12 04/29/17 07:44 98.6 F 72 12 100 04/29/17 07:00 98.6 F 04/29/17 06:00 13 04/29/17 04:00 98.6 F 13 04/29/17 02:00 16 04/29/17 00:00 99.0 F 17 Weight Admit Weight 111 lb 3.2 oz Weight 126 lb 1.671 oz Most Recent Monitor Data Heart Rate from ECG 72 NIBP 149/60 NIBP BP-Mean 100 Respiration from ECG 14 SpO2 100 I&O: 04/28/17 04/29/17 04/30/17 06:59 06:59 06:59 Intake Total 4163.4 1272.3 180 Output Total 645 550 105 Balance 3518.4 722.3 75 Result Diagrams: 04/29/17 04:30 04/29/17 04:30 Phys Exam - Physical Examination Constitutional: NAD HEENT: moist MMs Respiratory: no wheezing, no rales, no rhonchi, clear to auscultation bilateral Cardiovascular: RRR, no significant murmur Gastrointestinal: soft, positive bowel sounds Musculoskeletal: no edema Deviation from normal: sedated, arousable, hard of hearing so can't follow commands Dx/Plan (1) Acute respiratory failure Code(s): J96.00 - ACUTE RESPIRATORY FAILURE, UNSP W HYPOXIA OR HYPERCAPNIA Status: Acute Comment: On vent (2) Cardiac arrest Code(s): I46.9 - CARDIAC ARREST, CAUSE UNSPECIFIED Status: Resolved Comment : s/p Torsades de Pointes (3) Pneumonia Code(s): J18.9 - PNEUMONIA, UNSPECIFIED ORGANISM Status: Acute Comment: on Rocephin (4) SILVIA (acute kidney injury) Code(s): N17.9 - ACUTE KIDNEY FAILURE, UNSPECIFIED Status: Acute Comment: Improving (5) Hematoma of rectus sheath Code(s): S30.1XXA - CONTUSION OF ABDOMINAL WALL, INITIAL ENCOUNTER Status: Acute (6) Hyperlipidemia Code(s): E78.5 - HYPERLIPIDEMIA, UNSPECIFIED Status: Chronic (7) Hypothyroid Code(s): E03.9 - HYPOTHYROIDISM, UNSPECIFIED Status: Chronic (8) CAD (coronary artery disease) Code(s): I25.10 - ATHSCL HEART DISEASE OF [place] CORONARY ARTERY W/O ANG PCTRS Status: Chronic Qualifiers: Comment: s/p cabg on 04/24 (9) HTN (hypertension) Code(s): I10 - ESSENTIAL (PRIMARY) HYPERTENSION Status: Chronic Qualifiers: Comment: labile (10) PVD (peripheral vascular disease) Code(s): I73.9 - PERIPHERAL VASCULAR DISEASE, UNSPECIFIED Status: Chronic - Plan cont current plan of care, continue antibiotics, respiratory therapy Wean vent and levophed as tolerated per pulmonology. * . - Discharge Day Encounter end time: 13:00
[2017-04-29] MEDS: Norepinephrine 8 MG/250 ML BAG IVPB PRN (13:37)
[2017-04-29] MEDS: Fentanyl BOLUS 250 ML IVPB PRN ×2 (15:07→19:49)
[2017-04-29 15:17] LABS: Actual Bicarbonate (HCO3a) 23.1 mEq/L (22-26); Base Excess (BEa) -1.5 mEq/L (0 (+/-) 2.5); CO2 Tension 38.3 mmHg (35.0-45.0); Calcium, Ionized 1.2 mmol/L (1.12-1.30); O2 Tension (PaO2) 94.5 mmHg (80.0-100.0)
[2017-04-29 15:19] LABS: Actual Bicarbonate (HCO3a) 19.3 mEq/L (22-26); Base Excess (BEa) -5.2 mEq/L (0 (+/-) 2.5); CO2 Tension 33.4 mmHg (35.0-45.0); Calcium, Ionized 1.2 mmol/L (1.12-1.30); Hematocrit-ABG 19.8 % (36.0-47.0); Hemoglobin (Hb) 7.7 g/dL (12.0-16.0); O2 Tension (PaO2) 240.1 mmHg (80.0-100.0); pH, Arterial 7.38 (7.35-7.45)
[2017-04-29] MEDS: Atorvastatin Calcium 40 MG TAB PO SCH (21:08)
[2017-04-29] MEDS: Ubidecarenone 50 MG CAP PO SCH (21:09)
[2017-04-30] MEDS: Fentanyl BOLUS 250 ML IVPB PRN (01:30)
[2017-04-30 04:53] LABS: Anion Gap 11 mmol/L (10-20); BUN (Urea Nitrogen) 52 mg/dL (9.8-20.1); Calc. Creatinine Clearance 25 mL/min (70-130); Carbon Dioxide 23 mmol/L (23-31); Chloride 110 mmol/L (98-107); Estimated GFR-MDRD 33; Glucose 166 mg/dL (83-110); Potassium 4.4 mmol/L (3.5-5.1); Sodium 140 mmol/L (136-145)
[2017-04-30] MEDS: Levothyroxine Sodium 75 MCG TAB PO SCH (05:31)
[2017-04-30] MEDS: Enoxaparin Sodium 60 MG/0.6 ML SYRINGE SC SCH ×2 (05:31→17:21)
[2017-04-30 08:10] LABS: Analyzer IN Cardio OR; Puncture Site ALINE
[2017-04-30 08:11] LABS: Analyzer IN Cardio OR; Puncture Site ALINE
[2017-04-30] MEDS: Aspirin 325 mg Enteric Coated Tablet PO SCH (08:23)
[2017-04-30] MEDS: Carvedilol 3.125 MG TAB PO SCH ×2 (08:24→16:05)
[2017-04-30] MEDS: Famotidine 20 MG TAB PO SCH (08:24)
[2017-04-30] MEDS: Furosemide 20 MG TAB PO SCH (08:25)
[2017-04-30] MEDS: Potassium Chloride 10 MEQ TAB PO SCH (08:26)
[2017-04-30] MEDS: cefTRIAXone\\ROCEPHIN 1 GM, Syringe 0.4 ML in Sterile Water 9.6 ML SLOW IVP SCH (08:32)
--- NOTE | 2017-04-30 09:08 | PRG ---
DATE OF SERVICE: 04/30/2017 SUBJECTIVE: Ms. Ohara is on the ventilator, she is off sedation now. OBJECTIVE: VITAL SIGNS: Her blood pressure is 125/55, pulse 70. LUNGS: Clear. CARDIAC: Normal S1, S2. ABDOMEN: Soft, nontender. EXTREMITIES: No edema. ASSESSMENT: 1. Status post coronary artery bypass grafting. 2. Status post ventricular fibrillation, 04/27/2017, had increase troponin level of 9.8 at that poin t. 3. Subsequent echocardiogram revealed left ventricular dysfunction. PLAN: 1. She is on carvedilol. 2. She is on enoxaparin. 3. Probably stop amiodarone tomorrow. We will continue to follow with you.
[2017-04-30] MEDS ORDERED: DC Sedation Protocol FS ONE (09:27)
--- NOTE | 2017-04-30 09:30 | PDOC.PN ---
- Subjective Encounter Start Date: 04/30/17 Encounter Start Time: 10:00 Subjective: Patient extubated, hoarse voice but able to say yes/no. No complaints. Very -: hard of hearing and doesn't have her hearing aides. - Objective MAR Reviewed: Yes Vital Signs & Weight: Vital Signs (12 hours) Temp Pulse Resp Pulse Ox 04/30/17 08:00 13 04/30/17 07:16 98.5 F 66 11 L 100 04/30/17 07:00 98.5 F 04/30/17 06:00 10 L 04/30/17 04:00 98.1 F 10 L 04/30/17 02:00 10 L 04/30/17 00:00 98.3 F 10 L 04/29/17 22:00 13 Weight Admit Weight 111 lb 3.2 oz Weight 125 lb 12.8 oz Most Recent Monitor Data Heart Rate from ECG 59 NIBP 107/42 NIBP BP-Mean 60 Respiration from ECG 13 SpO2 99 I&O: 04/29/17 04/30/17 05/01/17 06:59 06:59 06:59 Intake Total 1272.3 1819.3 30 Output Total 550 700 90 Balance 722.3 1119.3 -60 Result Diagrams: 04/29/17 04:30 04/30/17 03:30 Phys Exam - Physical Examination Constitutional: NAD HEENT: moist MMs Respiratory: no wheezing, no rales, no rhonchi Cardiovascular: RRR, no significant murmur Gastrointestinal: soft, positive bowel sounds Neurological: non-focal, moves all 4 limbs Dx/Plan (1) Acute respiratory failure Code(s): J96.00 - ACUTE RESPIRATORY FAILURE, UNSP W HYPOXIA OR HYPERCAPNIA Status: Acute Comment: On vent (2) Cardiac arrest Code(s): I46.9 - CARDIAC ARREST, CAUSE UNSPECIFIED Status: Resolved Comment : s/p [place]orsades de Pointes (3) Pneumonia Code(s): J18.9 - PNEUMONIA, UNSPECIFIED ORGANISM Status: Acute Comment: on Rocephin (4) SILVIA (acute kidney injury) Code(s): N17.9 - ACUTE KIDNEY FAILURE, UNSPECIFIED Status: Acute Comment: Improving (5) Hematoma of rectus sheath Code(s): S30.1XXA - CONTUSION OF ABDOMINAL WALL, INITIAL ENCOUNTER Status: Acute (6) Hyperlipidemia Code(s): E78.5 - HYPERLIPIDEMIA, UNSPECIFIED Status: Chronic (7) Hypothyroid Code(s): E03.9 - HYPOTHYROIDISM, UNSPECIFIED Status: Chronic (8) CAD (coronary artery disease) Code(s): I25.10 - ATHSCL HEART DISEASE OF [place] CORONARY ARTERY W/O ANG PCTRS Status: Chronic Qualifiers: Comment: s/p cabg on 04/24 (9) HTN (hypertension) Code(s): I10 - ESSENTIAL (PRIMARY) HYPERTENSION Status: Chronic Qualifiers: Comment: labile (10) PVD (peripheral vascular disease) Code(s): I73.9 - PERIPHERAL VASCULAR DISEASE, UNSPECIFIED Status: Chronic - Plan cont current plan of care, continue antibiotics, respiratory therapy, DVT proph w/lovenox * . - Discharge Day Encounter end time: 10:30
--- NOTE | 2017-04-30 09:51 | PRG ---
DATE OF SERVICE: 04/30/2017 This morning she is off sedation, but still appears to be encephalopathic. PHYSICAL EXAMINATION: VITAL SIGNS: Pulse is 58 on amiodarone, blood pressure 130/80, sats are 100%, respirations 17. CHEST: Chest reveals decreased breath sounds, no wheezing. CARDIAC: Normal S1, S2. ABDOMEN: Soft, no masses. LABORATORY: Creatinine 1.5, BUN 52. X-ray was otherwise unremarkable. IMPRESSION: 1. Status post coronary artery bypass graft. 2. Status post ventricular fibrillation. 3. Left ventricular dysfunction. PLAN: Continue amiodarone. Will try and wean and extubate today since no further cardiac arrhythmias. Empiric antibiotics. I will follow. One-half hour critical care time.
--- NOTE | 2017-04-30 10:42 | RAD ---
PORTABLE CHEST ONE VIEW: Date: 04-30-17 Time: 10:17 a.m. History: Respiratory failure. FINDINGS/IMPRESSION: There has been interval removal of the endotracheal and nasogastric tubes since the previous day's ex am. Changes of median sternotomy are again seen. The heart size is stable. No lobar consolidation, pn eumothoraces, or large effusions are seen. There is no evidence of emiliano pulmonary edema. 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 POS: [facility]
--- NOTE | 2017-04-30 12:36 | EKG ---
Test Reason : Blood Pressure : / mmHG Vent. Rate : 059 BPM Atrial Rate : 059 BPM P-R Int : 190 ms QRS Dur : 102 ms QT Int : 518 ms P-R-T Axes : 051 056 118 degrees QTc Int : 512 ms Sinus bradycardia with sinus arrhythmia T wave abnormality, consider anterolateral ischemia Prolonged QT RBBB pattern Abnormal ECG When compared with ECG of 27-APR-2017 11:20, Sinus rhythm has replaced Junctional rhythm Vent. rate has decreased BY [address] no longer elevated in Lateral leads T wave inversion more evident in Anterolateral leads QT has lengthened Confirmed by DR. Shahid HONEYCUTT ([id number]) on 04/30/2017 12:35:56 PM Referred By: KHOA Confirmed By:DR. Shahid HONEYCUTT
[2017-04-30] MEDS: Amiodarone HCl 450 MG, Admixture Fee 1 EACH in Dextrose 5% in Water 250 ML IVPB SCH (13:54)
[2017-04-30] MEDS: Ondansetron HCl/PF 4 MG/2 ML Vial IVP PRN (16:05)
[2017-04-30] MEDS: hydrALAZINE 20 MG/ML VIAL SLOW IVP PRN (20:24)
[2017-04-30] MEDS: Atorvastatin Calcium 40 MG TAB PO SCH (20:27)
[2017-04-30] MEDS: Ubidecarenone 50 MG CAP PO SCH (20:28)
[2017-05-01 05:06] LABS: Anion Gap 13 mmol/L (10-20); BUN (Urea Nitrogen) 60 mg/dL (9.8-20.1); Calc. Creatinine Clearance 24 mL/min (70-130); Calcium 8.3 mg/dL (7.8-10.44); Carbon Dioxide 22 mmol/L (23-31); Chloride 110 mmol/L (98-107); Estimated GFR-MDRD 32; Glucose 129 mg/dL (83-110); Potassium 4.6 mmol/L (3.5-5.1); Sodium 140 mmol/L (136-145)
[2017-05-01] MEDS: hydrALAZINE 20 MG/ML VIAL SLOW IVP PRN ×2 (05:07→20:47)
[2017-05-01] MEDS: Enoxaparin Sodium 60 MG/0.6 ML SYRINGE SC SCH ×2 (05:09→17:24)
[2017-05-01] MEDS: Levothyroxine Sodium 75 MCG TAB PO SCH (05:33)
[2017-05-01 06:09] LABS: Anisocytosis SLIGHT = 6-15 cells (100X) (0-5/hpf); Band 2 % (5-11); Hemoglobin 8.6 g/dL (12.0-16.0); Lymphocytes 4 % (21-51); MDiff Complete? YES; Macrocytosis SLIGHT = 6-15 cells (100X) (0-5/hpf); Mean Corpuscular HGB CONC 31.9 g/dL (32.0-36.0); Mean Corpuscular Hemoglobin 31.9 pg (27.0-31.0); Mean Corpuscular Volume 99.8 fl (81.0-99.0); Mean Platelet Volume 7.6 fL (7.4-10.4); Metamyelocyte 4 % (0-0); Monocytes 9 % (0-10); Neutrophil 81 % (42-75); Nucleated RBC 1 % (0); PLT Morphology Comment Appears Adequate; Platelet Count 247 thou/uL (130-400); Polychromasia SLIGHT = 2-3 cells (100X) (0-2/hpf); RBC Distribution Width 14.6 % (11.5-14.5); Red Blood Cell (RBC) Count 2.71 mill/uL (4.20-5.40); White Blood Cell (WBC) Count 15.8 thou/uL (4.8-10.8)
[2017-05-01] MEDS: Famotidine 20 MG TAB PO SCH (08:03)
[2017-05-01] MEDS: Carvedilol 3.125 MG TAB PO SCH ×2 (08:03→17:24)
[2017-05-01] MEDS: Furosemide 20 MG TAB PO SCH (08:03)
[2017-05-01] MEDS: Aspirin 325 mg Enteric Coated Tablet PO SCH (08:03)
[2017-05-01] MEDS: Potassium Chloride 10 MEQ TAB PO SCH (08:03)
[2017-05-01] MEDS: cefTRIAXone\\ROCEPHIN 1 GM, Syringe 0.4 ML in Sterile Water 9.6 ML SLOW IVP SCH (08:12)
--- NOTE | 2017-05-01 08:47 | RAD ---
CHEST ONE VIEW: History: Ventilated patient. Comparison: Prior day. FINDINGS: Heart size is enlarged. There are trace bilateral effusions. Mild edema. No acute osseous abnormality. IMPRESSION: Similar examination of the chest. POS: [facility]
[2017-05-01] MEDS: Ondansetron HCl/PF 4 MG/2 ML Vial IVP PRN (09:33)
[2017-05-01] MEDS: Cefdinir 300 MG CAP PO SCH ×2 (09:34→20:31)
--- NOTE | 2017-05-01 09:36 | PDOC.PN ---
- Subjective Encounter Start Date: 05/01/17 Encounter Start Time: 10:30 Subjective: Didn't sleep overnight, somnolent today. BP doing well off pressors - Objective MAR Reviewed: Yes Vital Signs & Weight: Vital Signs (12 hours) Temp Pulse BP 05/01/17 07:00 97 F L 05/01/17 05:07 67 176/72 H 05/01/17 04:00 98.2 F 05/01/17 00:00 98.7 F Weight Admit Weight 111 lb 3.2 oz Weight 126 lb 12.8 oz Most Recent Monitor Data Heart Rate from ECG 68 NIBP 126/58 NIBP BP-Mean 73 Respiration from ECG 25 SpO2 96 I&O: 04/30/17 05/01/17 05/02/17 06:59 06:59 06:59 Intake Total 1819.3 899 0 Output Total 700 660 50 Balance 1119.3 239 -50 Result Diagrams: 05/01/17 04:30 05/01/17 04:30 Phys Exam - Physical Examination Constitutional: NAD HEENT: moist MMs Respiratory: no wheezing, no rales, no rhonchi, clear to auscultation bilateral Cardiovascular: RRR, no significant murmur Gastrointestinal: soft, positive bowel sounds Neurological: non-focal, moves all 4 limbs Psychiatric: normal affect, A&O x 3 Dx/Plan (1) Acute respiratory failure Code(s): J96.00 - ACUTE RESPIRATORY FAILURE, UNSP W HYPOXIA OR HYPERCAPNIA Status: Acute Comment: Extubated (2) Cardiac arrest Code(s): I46.9 - CARDIAC ARREST, CAUSE UNSPECIFIED Status: Resolved Comment : s/p Torsades de Pointes (3) Pneumonia Code(s): J18.9 - PNEUMONIA, UNSPECIFIED ORGANISM Status: Acute Comment: on Rocephin (4) SILVIA (acute kidney injury) Code(s): N17.9 - ACUTE KIDNEY FAILURE, UNSPECIFIED Status: Acute Comment: Worsening again, will start gentle hydration (5) Hematoma of rectus sheath Code(s): S30.1XXA - CONTUSION OF ABDOMINAL WALL, INITIAL ENCOUNTER Status: Acute (6) Hyperlipidemia Code(s): E78.5 - HYPERLIPIDEMIA, UNSPECIFIED Status: Chronic (7) Hypothyroid Code(s): E03.9 - HYPOTHYROIDISM, UNSPECIFIED Status: Chronic (8) CAD (coronary artery disease) Code(s): I25.10 - ATHSCL HEART DISEASE OF [place] CORONARY ARTERY W/O ANG PCTRS Status: Chronic Qualifiers: Comment: s/p cabg on 04/24 (9) HTN (hypertension) Code(s): I10 - ESSENTIAL (PRIMARY) HYPERTENSION Status: Chronic Qualifiers: Comment: labile (10) PVD (peripheral vascular disease) Code(s): I73.9 - PERIPHERAL VASCULAR DISEASE, UNSPECIFIED Status: Chronic - Plan cont current plan of care, continue antibiotics, PT/OT, DVT proph w/lovenox * . - Discharge Day Encounter end time: 11:00
[2017-05-01] MEDS: Sodium Chloride 0.45% 1,000 ML IV SCH (10:31)
--- NOTE | 2017-05-01 15:36 | PRG ---
DATE OF SERVICE: 05/01/2017 SUBJECTIVE: Mayda is confused and disoriented today, actually a little bit better than yesterday. Her family has been very helpful and trying to reorient her. OBJECTIVE: VITAL SIGNS: Blood pressure is variable 138/53 most recently, pulse 62 and regular. LUNGS: Clear. CARDIAC: Normal S1, normal S2. The echocardiogram showed dramatic improvement in left ventricular function. The echocardiogram show ed very much better ventricular function, the actual report I see is not made it for the chart. We w ill need to check on that. ASSESSMENT: 1. Status post bypass. 2. Ventricular fibrillation. 3. Ejection fraction is actually 35% to 40%. This was filed in the wrong date. Echocardiogram done on showed ejection fraction 10% to 15% stenosis. 4. 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 5. Hypertension. 6. Bypass surgery. PLAN: 1. Check magnesium and potassium levels tomorrow. 2. Reinstitute NAVNEET inhibitors.
--- NOTE | 2017-05-01 18:39 | PRG ---
DATE OF SERVICE: 05/01/2017 SUBJECTIVE: This morning post-extubation, she is in no distress, no shortness of breath. X-ray is c lear. PHYSICAL EXAMINATION: VITAL SIGNS: Temperature 97, blood pressure 120/58, respirations 18. I's and O's 1819 in and 700 ou t. CHEST: Decreased breath sounds, no wheezing. CARDIAC: Normal S1-S2. No gallops. LABORATORY DATA: White count 15,000, hemoglobin and hematocrit 8 and 27, platelet count normal, elec trolytes normal, creatinine 1.5. IMPRESSION: 1. Status post coronary artery bypass graft. 2. Status post ventricular tachycardia. 3. Respiratory failure. 4. Azotemia. 5. Dementia. PLAN: Minimize medication. Hopefully, once we switch her to oral Amiodarone, she can be transferred to a monitored bed, PT and supportive care. We will follow.
[2017-05-01] MEDS: Atorvastatin Calcium 40 MG TAB PO SCH (20:31)
[2017-05-01] MEDS: Ubidecarenone 50 MG CAP PO SCH (20:31)
[2017-05-02] MEDS: Sodium Chloride 0.45% 1,000 ML IV SCH ×2 (03:17→21:31)
[2017-05-02] MEDS: Norepinephrine 8 MG/250 ML BAG IVPB PRN (03:31)
[2017-05-02] MEDS: Levothyroxine Sodium 75 MCG TAB PO SCH (03:34)
[2017-05-02 04:40] LABS: Anion Gap 14 mmol/L (10-20); BUN (Urea Nitrogen) 59 mg/dL (9.8-20.1); Calc. Creatinine Clearance 26 mL/min (70-130); Calcium 8.1 mg/dL (7.8-10.44); Carbon Dioxide 22 mmol/L (23-31); Chloride 113 mmol/L (98-107); Estimated GFR-MDRD 34; Glucose 101 mg/dL (83-110); Magnesium 2.4 mg/dL (1.6-2.6); Potassium 4.5 mmol/L (3.5-5.1); Sodium 144 mmol/L (136-145)
[2017-05-02] MEDS: Enoxaparin Sodium 60 MG/0.6 ML SYRINGE SC SCH (04:59)
--- NOTE | 2017-05-02 09:07 | PDOC.PN ---
- Subjective Encounter Start Date: 05/02/17 Encounter Start Time: 09:05 Ms. Ohara was seen today in follow-up of severe CAD and s/p CABG. She is now extubated, and appears a bit weak, and somewhat dyspneic. She does not have any complaints. - Objective MAR Reviewed: Yes Vital Signs & Weight: Vital Signs (12 hours) Temp Pulse Resp Pulse Ox 05/02/17 08:12 95 05/02/17 08:10 76 22 H 95 05/02/17 04:00 98.4 F 05/02/17 00:00 98.2 F Weight Admit Weight 111 lb 3.2 oz Weight 125 lb 6.4 oz Most Recent Monitor Data Heart Rate from ECG 78 NIBP 159/61 NIBP BP-Mean 92 Respiration from ECG 24 SpO2 91 I&O: 05/01/17 05/02/17 05/03/17 06:59 06:59 06:59 Intake Total 899 1177 Output Total 660 1455 165 Balance 239 -278 -165 Result Diagrams: 05/01/17 04:30 05/02/17 04:00 Phys Exam - Physical Examination HEENT: PERRLA + wheezing bilaterally, and rhonchi Cardiovascular: RRR, no significant murmur, no rub Gastrointestinal: soft, non-tender, positive bowel sounds Musculoskeletal: edema present trace pedal edema Dx/Plan (1) S/P CABG x 4 Status: Acute (2) Hematoma of rectus sheath Code(s): S30.1XXA - CONTUSION OF ABDOMINAL WALL, INITIAL ENCOUNTER Status: Acute (3) Ventricular fibrillation Code(s): I49.01 - VENTRICULAR FIBRILLATION Status: Acute (4) Hypothyroid Code(s): E03.9 - HYPOTHYROIDISM, UNSPECIFIED Status: Chronic (5) CAD (coronary artery disease) Code(s): I25.10 - ATHSCL HEART DISEASE OF [place] CORONARY ARTERY W/O ANG PCTRS Status: Chronic Qualifiers: Comment: s/p cabg on 04/24 (6) HTN (hypertension) Code(s): I10 - ESSENTIAL (PRIMARY) HYPERTENSION Status: Chronic Qualifiers: Comment: labile (7) PVD (peripheral vascular disease) Code(s): I73.9 - PERIPHERAL VASCULAR DISEASE, UNSPECIFIED Status: Chronic - Plan * CAD a/p 4 vessel CABG- This was complicated by an episode of VFib resulting in a a code blue, and re-intubation, She has since been extubated. Continue as per CV surgery * HTN- blood pressure us slightly elevated- will monitor, may need to adjust medications * Hypothyroidism- she is clinically euthyroid- continue Levothyroxine * V Fib- she is now off Amiodarone, and her heart rate is stable, in sinus * Possibly out of the ICU soon
[2017-05-02] MEDS: Cefdinir 300 MG CAP PO SCH ×2 (09:08→20:03)
[2017-05-02] MEDS: Famotidine 20 MG TAB PO SCH (09:08)
[2017-05-02] MEDS: Furosemide 20 MG TAB PO SCH (09:08)
[2017-05-02] MEDS: Carvedilol 3.125 MG TAB PO SCH ×2 (09:08→17:10)
[2017-05-02] MEDS: Aspirin 325 mg Enteric Coated Tablet PO SCH (09:09)
[2017-05-02] MEDS: Potassium Chloride 10 MEQ TAB PO SCH (09:09)
--- NOTE | 2017-05-02 11:39 | PRG ---
DATE OF SERVICE: 05/02/2017 SUBJECTIVE: The patient seems to be doing okay except for raspy voice. PHYSICAL EXAMINATION: VITAL SIGNS: Temperature is 98.4, pulse 78, blood pressure 159/61. Total intake for 24 hours is 117 7, output 1455. Weight 125 pounds. HEENT: Unremarkable. NECK: Coarse breath sounds. CARDIOVASCULAR: S1, S2 regular. ABDOMEN: Soft. LUNGS: A few rales. EXTREMITIES: No edema. LABORATORY DATA: White blood cell count 15.8, hematocrit 27, platelet count 247 yesterday. Sodium 1 44, potassium 4.5, chloride 113, CO2 of 22, BUN 59, creatinine 1.4, glucose 101. ASSESSMENT: 1. Status post coronary artery bypass grafting surgery. 2. Status post prolonged acute respiratory failure. 3. Status post ventricular tachycardia. PLAN: The patient can be transferred to intermediate care telemetry in time and do not seem to be an y airway concerns at this time, she is finishing of 5 days of antibiotics. Her central line will be taken out of the right groin.
[2017-05-02] MEDS: hydrALAZINE 20 MG/ML VIAL SLOW IVP PRN ×2 (15:17→22:02)
--- NOTE | 2017-05-02 17:02 | EKG ---
Test Reason : Blood Pressure : / mmHG Vent. Rate : 076 BPM Atrial Rate : 076 BPM P-R Int : 174 ms QRS Dur : 100 ms QT Int : 406 ms P-R-T Axes : 083 078 074 degrees QTc Int : 456 ms Normal sinus rhythm with sinus arrhythmia Nonspecific ST-T changes Abnormal ECG When compared with ECG of 30-APR-2017 09:13, Nonspecific T wave abnormality has replaced inverted T waves in Lateral leads Confirmed by DR. Shahid HONEYCUTT ([id number]) on 05/02/2017 5:02:12 PM Referred By: KHOA Confirmed By:DR. Shahid HONEYCUTT
[2017-05-02] MEDS: Atorvastatin Calcium 40 MG TAB PO SCH (20:02)
[2017-05-02] MEDS: Ubidecarenone 50 MG CAP PO SCH (20:03)
[2017-05-03 04:36] LABS: Anion Gap 13 mmol/L (10-20); BUN (Urea Nitrogen) 51 mg/dL (9.8-20.1); Calc. Creatinine Clearance 31 mL/min (70-130); Calcium 8.6 mg/dL (7.8-10.44); Carbon Dioxide 22 mmol/L (23-31); Chloride 114 mmol/L (98-107); Estimated GFR-MDRD 43; Glucose 101 mg/dL (83-110); Potassium 4.2 mmol/L (3.5-5.1); Sodium 145 mmol/L (136-145)
[2017-05-03] MEDS: Levothyroxine Sodium 75 MCG TAB PO SCH (05:01)
[2017-05-03] MEDS: Enoxaparin Sodium 30 MG/0.3 ML SYRINGE SC SCH (08:19)
[2017-05-03] MEDS: Cefdinir 300 MG CAP PO SCH ×2 (08:19→20:21)
[2017-05-03] MEDS: Carvedilol 3.125 MG TAB PO SCH (08:19)
[2017-05-03] MEDS: Famotidine 20 MG TAB PO SCH (08:20)
[2017-05-03] MEDS: Aspirin 81 mg Enteric Coated Tablet PO SCH (08:24)
--- NOTE | 2017-05-03 09:28 | PRG ---
DATE OF SERVICE: 05/03/2017 PULMONARY AND CRITICAL CARE PROGRESS NOTE SUBJECTIVE: The patient has done well overnight. PHYSICAL EXAMINATION: VITAL SIGNS: Temperature is 97.5, pulse 73, blood pressure 128/53, O2 sat 98%. Total intake for 24 hours 1282 and output 1340. HEENT: Unremarkable. NECK: No JVD. CHEST: Clear except rounded neck where she has few audible rhonchi. CARDIOVASCULAR: S1 and S2 regular. ABDOMEN: Soft. EXTREMITIES: She has bruising over her genital area. LABORATORY DATA: White blood cell count 15.8, hematocrit 27, and platelet count 247. Sodium 145, po tassium 4.2, chloride 114, CO2 22, BUN 51, creatinine 1.2, and glucose 101. ASSESSMENT: 1. Status post coronary artery bypass grafting surgery. 2. Status post acute respiratory failure. 3. Status post ventricular tachycardia. PLAN: The patient is awaiting transfer to the [facility]. She is currently on oral antibiotics and need t o increase activity as tolerated.
--- NOTE | 2017-05-03 10:28 | PDOC.PN ---
- Subjective Encounter Start Date: 05/03/17 Encounter Start Time: 10:26 Ms. Ohara does not have any complaints this morning, she denies chest pain or difficulty breathing. - Objective MAR Reviewed: Yes Vital Signs & Weight: Vital Signs (12 hours) Temp Pulse Resp Pulse Ox 05/03/17 08:00 99 05/03/17 07:23 97.5 F L 70 16 97 05/03/17 07:00 97.5 F L 05/03/17 04:00 98.4 F 05/03/17 00:00 98.4 F Weight Admit Weight 111 lb 3.2 oz Weight 125 lb 0.034 oz Most Recent Monitor Data Heart Rate from ECG 73 NIBP 128/53 NIBP BP-Mean 80 Respiration from ECG 14 SpO2 98 I&O: 05/02/17 05/03/17 05/04/17 06:59 06:59 06:59 Intake Total 1177 1282 104 Output Total 1455 1340 102 Balance -278 -58 2 Result Diagrams: 05/01/17 04:30 05/03/17 03:48 Phys Exam - Physical Examination HEENT: PERRLA Respiratory: no wheezing + rhonchi but diminished from yesterday, Cardiovascular: RRR, no significant murmur, no rub Gastrointestinal: soft, non-tender, positive bowel sounds trace pedal edema Dx/Plan (1) S/P CABG x 4 Status: Acute (2) Hematoma of rectus sheath Code(s): S30.1XXA - CONTUSION OF ABDOMINAL WALL, INITIAL ENCOUNTER Status: Acute (3) Ventricular fibrillation Code(s): I49.01 - VENTRICULAR FIBRILLATION Status: Acute (4) Hypothyroid Code(s): E03.9 - HYPOTHYROIDISM, UNSPECIFIED Status: Chronic (5) CAD (coronary artery disease) Code(s): I25.10 - ATHSCL HEART DISEASE OF [place] CORONARY ARTERY W/O ANG PCTRS Status: Chronic Qualifiers: Comment: s/p cabg on 04/24 (6) HTN (hypertension) Code(s): I10 - ESSENTIAL (PRIMARY) HYPERTENSION Status: Chronic Qualifiers: Comment: labile (7) PVD (peripheral vascular disease) Code(s): I73.9 - PERIPHERAL VASCULAR DISEASE, UNSPECIFIED Status: Chronic - Plan * CAD, s/p CABG complicated by VFIB- her heart rate has been stable, in sinus * Continue aspirin, Bystolic, and Lipitor * HTN- blood pressure is stable. * Hy[pothyroidism- she is clinically euthyroid
--- NOTE | 2017-05-03 10:30 | PRG ---
DATE OF SERVICE: 05/03/2017 SUBJECTIVE: Ms. Ohara is doing better today. She is more calm. She did not have any chest pain o r pressure. OBJECTIVE: VITAL SIGNS: Her blood pressure is 128/53, pulse in the mid 60s, sinus. LUNGS: Clear. CARDIAC: Normal S1, normal S2. ASSESSMENT: 1. Post-bypass surgery. 2. Status post ventricular fibrillation. 3. Markedly depressed ejection fraction postoperatively but dramatic improvement 2 days later. I russell spect she had Takotsubo's. PLAN: 1. We will increase Benicar to 40 mg starting tomorrow. 2. We will change her beta laura to Bystolic. She did well with that preoperatively. 3. We would recommend LifeVest prior to discharge. 4. The patient is outlined to be transferred to telemetry.
--- NOTE | 2017-05-03 13:06 | ULT ---
RIGHT GROIN ULTRASOUND WITH DOPPLER (GOLDSTEIN-SCALE, COLOR-FLOW, AND SPECTRAL DOPPLER): HISTORY: Previous right groin catheterization, ecchymosis. FINDINGS: There is good flow and spectral wave-forms in the right common femoral artery and vein. No vascular mass is seen. IMPRESSION: No evidence of right groin pseudoaneurysm. POS: MIKA
[2017-05-03] MEDS: Ubidecarenone 50 MG CAP PO SCH (20:21)
[2017-05-03] MEDS: Atorvastatin Calcium 40 MG TAB PO SCH (20:21)
[2017-05-03] MEDS ORDERED: Amiodarone HCl 150 MG, Admixture Fee 1 EACH in Dextrose 5% in Water 100 ML IVPB SCH (23:45)
[2017-05-03] MEDS: Amiodarone HCl 450 MG, Admixture Fee 1 EACH in Dextrose 5% in Water 250 ML IVPB SCH (23:47)
[2017-05-04] MEDS: Levothyroxine Sodium 75 MCG TAB PO SCH (05:04)
[2017-05-04 06:26] LABS: Anion Gap 10 mmol/L (10-20); BUN (Urea Nitrogen) 45 mg/dL (9.8-20.1); Calc. Creatinine Clearance 32 mL/min (70-130); Calcium 8.5 mg/dL (7.8-10.44); Carbon Dioxide 24 mmol/L (23-31); Chloride 113 mmol/L (98-107); Estimated GFR-MDRD 44; Glucose 117 mg/dL (83-110); Sodium 143 mmol/L (136-145)
[2017-05-04 06:27] LABS: Band 1 % (5-11); Eosinophils 1 % (0-10); Hemoglobin 8.8 g/dL (12.0-16.0); Lymphocytes 8 % (21-51); MDiff Complete? YES; Mean Corpuscular Hemoglobin 31.9 pg (27.0-31.0); Mean Corpuscular Volume 99.8 fl (81.0-99.0); Mean Platelet Volume 7.1 fL (7.4-10.4); Monocytes 13 % (0-10); Neutrophil 77 % (42-75); Nucleated RBC 1 % (0); PLT Morphology Comment Appears Adequate; Platelet Count 301 thou/uL (130-400); RBC Distribution Width 14.9 % (11.5-14.5); Red Blood Cell (RBC) Count 2.74 mill/uL (4.20-5.40); White Blood Cell (WBC) Count 11.4 thou/uL (4.8-10.8)
[2017-05-04] MEDS: Aspirin 81 mg Enteric Coated Tablet PO SCH (08:23)
[2017-05-04] MEDS: Famotidine 20 MG TAB PO SCH (08:23)
[2017-05-04] MEDS: Cefdinir 300 MG CAP PO SCH ×2 (08:23→20:23)
[2017-05-04] MEDS: Nebivolol HCl 5 MG TAB PO SCH (08:23)
[2017-05-04] MEDS: Enoxaparin Sodium 30 MG/0.3 ML SYRINGE SC SCH (08:23)
[2017-05-04] MEDS: Acetaminophen 325 MG TAB PO PRN ×2 (09:35→20:23)
[2017-05-04] MEDS: Amiodarone HCl 450 MG, Admixture Fee 1 EACH in Dextrose 5% in Water 250 ML IVPB SCH (09:48)
--- NOTE | 2017-05-04 10:03 | PDOC.PN ---
- Subjective Encounter Start Date: 05/04/17 Encounter Start Time: 10:01 Ms. Ohara was seen today in follow-up of CAD - post CABG. She is currently resting, and family do not want her disturbed. They said she was anxious this morning, and beginning to have full realization of what she has been through during this hospitalization. - Objective MAR Reviewed: Yes Vital Signs & Weight: Vital Signs (12 hours) Temp Pulse Resp Pulse Ox 05/04/17 08:00 97.6 F 106 H 20 95 05/04/17 04:00 98.5 F 05/04/17 00:00 98.6 F Weight Admit Weight 111 lb 3.2 oz Weight 125 lb 14.143 oz Most Recent Monitor Data Heart Rate from ECG 103 NIBP 115/69 NIBP BP-Mean 79 Respiration from ECG 16 SpO2 97 I&O: 05/03/17 05/04/17 05/05/17 06:59 06:59 06:59 Intake Total 1282 1253 118 Output Total 1340 807 175 Balance -58 446 -57 Result Diagrams: 05/04/17 05:35 05/04/17 05:35 Phys Exam - Physical Examination Respiratory: no wheezing Cardiovascular: RRR, no significant murmur, no rub Gastrointestinal: soft, positive bowel sounds Musculoskeletal: no edema Dx/Plan (1) S/P CABG x 4 Status: Acute (2) Hematoma of rectus sheath Code(s): S30.1XXA - CONTUSION OF ABDOMINAL WALL, INITIAL ENCOUNTER Status: Acute (3) Ventricular fibrillation Code(s): I49.01 - VENTRICULAR FIBRILLATION Status: Acute (4) Hypothyroid Code(s): E03.9 - HYPOTHYROIDISM, UNSPECIFIED Status: Chronic (5) CAD (coronary artery disease) Code(s): I25.10 - ATHSCL HEART DISEASE OF [place] CORONARY ARTERY W/O ANG PCTRS Status: Chronic Qualifiers: Comment: s/p cabg on 04/24 (6) HTN (hypertension) Code(s): I10 - ESSENTIAL (PRIMARY) HYPERTENSION Status: Chronic Qualifiers: Comment: labile (7) PVD (peripheral vascular disease) Code(s): I73.9 - PERIPHERAL VASCULAR DISEASE, UNSPECIFIED Status: Chronic - Plan * CAD - post CABG- she is clinically stable. No evidence of VFIB or significant arrythmia * HTN- blood pressure is stable * Acute renal failure- resolving * Continue PT/OT.
--- NOTE | 2017-05-04 10:15 | PRG ---
DATE OF SERVICE: 05/04/2017 SUBJECTIVE: Ms. Ohara is up in a chair today. She says she feels better. She did go into atrial fibrillation with rapid ventricular response last night and is back on an amiodarone drip. PHYSICAL EXAMINATION: VITAL SIGNS: Temperature is 98.5, pulse 103, blood pressure 115/69, 24-hour intake 1253, output 807. HEENT: Unremarkable. NECK: No JVD. CARDIAC: S1, S2, regular. LUNGS: Clear. ABDOMEN: Soft. EXTREMITIES: No edema. LABORATORY DATA: White blood cell count 11.4, hematocrit 27.4, platelet count 301. Sodium 143, pota ssium 4, chloride 113, CO2 24, BUN 45, creatinine 1.2, glucose 117. ASSESSMENT: 1. Status post coronary artery bypass grafting surgery. 2. Status post respiratory failure. 3. Status post ventricular tachycardia. 4. Paroxysmal atrial fibrillation. PLAN: Still awaiting transfer to either [facility] or telemetry. She is doing well from a pulmonary standp oint. Cardiac medications are being managed by Dr. Sawant and Dr. Rodarte.
[2017-05-04] MEDS: Atorvastatin Calcium 40 MG TAB PO SCH (20:23)
[2017-05-04] MEDS: Ubidecarenone 50 MG CAP PO SCH (20:23)
[2017-05-05] MEDS: Amiodarone HCl 450 MG, Admixture Fee 1 EACH in Dextrose 5% in Water 250 ML IVPB SCH (00:54)
[2017-05-05] MEDS: hydrALAZINE 20 MG/ML VIAL SLOW IVP PRN (04:46)
[2017-05-05] MEDS: Levothyroxine Sodium 75 MCG TAB PO SCH (04:50)
[2017-05-05] MEDS: Acetaminophen 325 MG TAB PO PRN ×2 (05:25→17:50)
[2017-05-05] MEDS: Aspirin 81 mg Enteric Coated Tablet PO SCH (08:32)
[2017-05-05] MEDS: Cefdinir 300 MG CAP PO SCH (08:32)
[2017-05-05] MEDS: Nebivolol HCl 5 MG TAB PO SCH (08:32)
[2017-05-05] MEDS: Famotidine 20 MG TAB PO SCH (08:32)
[2017-05-05] MEDS: Enoxaparin Sodium 30 MG/0.3 ML SYRINGE SC SCH (08:32)
--- NOTE | 2017-05-05 11:30 | PDOC.PN ---
- Subjective Encounter Start Date: 05/05/17 Encounter Start Time: 11:28 Ms. Ohara was seen today in follow-up. She does not have any complaints this morning. She denies chest pain or shortness of breath. - Objective MAR Reviewed: Yes Vital Signs & Weight: Vital Signs (12 hours) Temp Pulse Resp BP BP Pulse Ox 05/05/17 07:54 97.6 F 66 20 155/57 H 97 05/05/17 07:41 97.6 F 66 24 H 97 05/05/17 06:09 99 05/05/17 06:04 66 24 H 99 05/05/17 05:40 66 20 137/58 L 97 05/05/17 04:46 65 183/68 H Weight Admit Weight 111 lb 3.2 oz Weight 130 lb 3.2 oz Most Recent Monitor Data Heart Rate from ECG 90 NIBP 131/72 NIBP BP-Mean 110 Respiration from ECG 20 SpO2 94 I&O: 05/04/17 05/05/17 05/06/17 06:59 06:59 06:59 Intake Total 1253 990 120 Output Total 807 825 Balance 446 165 120 Result Diagrams: 05/04/17 05:35 05/04/17 05:35 Additional Labs: Accuchecks 05/05/17 04:38 POC Glucose 114 H Phys Exam - Physical Examination HEENT: PERRLA + occasional rhonchi, no rales Cardiovascular: RRR, no significant murmur, no rub Gastrointestinal: soft, non-tender, positive bowel sounds Musculoskeletal: no edema Dx/Plan (1) S/P CABG x 4 Status: Acute (2) Hematoma of rectus sheath Code(s): S30.1XXA - CONTUSION OF ABDOMINAL WALL, INITIAL ENCOUNTER Status: Acute (3) Ventricular fibrillation Code(s): I49.01 - VENTRICULAR FIBRILLATION Status: Acute (4) Hypothyroid Code(s): E03.9 - HYPOTHYROIDISM, UNSPECIFIED Status: Chronic (5) CAD (coronary artery disease) Code(s): I25.10 - ATHSCL HEART DISEASE OF [place] CORONARY ARTERY W/O ANG PCTRS Status: Chronic Qualifiers: Comment: s/p cabg on 04/24 (6) HTN (hypertension) Code(s): I10 - ESSENTIAL (PRIMARY) HYPERTENSION Status: Chronic Qualifiers: Comment: labile (7) PVD (peripheral vascular disease) Code(s): I73.9 - PERIPHERAL VASCULAR DISEASE, UNSPECIFIED Status: Chronic - Plan * Ms. Ohara was originally admitted with ACS, and found to have multivessel CAD She is s/p CABG. She developed VFIB was coded intubated and placed on Amiodarone drip. She has improved, and has been extubated and moved out of the ICU, and is currently hemodynamically stable. * Amiodarone has been changed to p.o. * HTN- blood pressure is stable * Hypothyroidism- she is clinically euthyroid * Plan is to discharge to Rehab when cleared by CV Surgery
--- NOTE | 2017-05-05 16:58 | PDOC.CTH ---
<Patsy Solitario - Last Filed: 05/05/17 17:00> Cardiology Progress Note - Subjective the pt seen and examined. No overnight events. No cardiac complaints. She has been up to chair with 1 assist. HYDABURG. - Objective Vital Signs Temp Pulse Resp BP BP Pulse Ox 05/05/17 15:51 97.7 F 60 18 156/66 H 95 05/05/17 11:51 97.6 F 63 18 124/54 L 96 05/05/17 07:54 97.6 F 66 20 155/57 H 97 05/05/17 07:41 97.6 F 66 24 H 97 05/05/17 06:09 99 05/05/17 06:04 66 24 H 99 05/05/17 05:40 66 20 137/58 L 97 Admit Weight 111 lb 3.2 oz Weight 130 lb 3.2 oz 05/04/17 05/05/17 05/06/17 06:59 06:59 06:59 Intake Total 1253 990 240 Output Total 807 825 450 Balance 446 165 -210 - Physical Examination General/Neuro: alert & oriented x3 Neck: no JVD present Lungs: other: (diminished at bases) Heart: RRR Abdomen: soft Extremities: other: (mild pitting edemas; on TEDs) - Telemetry Telemetry Rhythm: SR 80s - Labs Result Diagrams: 05/04/17 05:35 05/04/17 05:35 Troponin/CKMB CK-MB (CK-2) 12.4 ng/mL (0-6.6) H* 04/27/17 11:40 Troponin I 9.863 ng/mL (< 0.028) H* 04/27/17 11:40 - Assessment/Plan 1. CAD with S/P CABG x 4 on 04/24/17 Saph-diag, LAN, OM, and RCA - 2. Ventricular fibrillation - stable with Amiodarone PO; cont. monitor 3. Post Afib - remains SR with Amiodarone PO; cont. monitor 4. HTN - stable with current medication 5. Decreased EF - The pt will d/c with LifeVest 6. Hypothyroid - on thyroid medication MAR reviewed *The pt will be d/eced with LifeVest Review of Systems - Review of Systems Constitutional: reports: no symptoms reported EENTM: reports: no symptoms reported Respiratory: reports: no symptoms reported Cardiac (ROS): reports: no symptoms reported ABD/GI: reports: no symptoms reported : reports: no symptoms reported Musculoskeletal: reports: no symptoms reported <Francisca Jett - Last Filed: 05/05/17 19:56> Cardiology Progress Note - Objective Vital Signs Temp Pulse Resp BP BP Pulse Ox 05/05/17 17:32 60 22 H 98 05/05/17 15:51 97.7 F 60 18 156/66 H 95 05/05/17 11:51 97.6 F 63 18 124/54 L 96 Admit Weight 111 lb 3.2 oz Weight 130 lb 3.2 oz 05/04/17 05/05/17 05/06/17 06:59 06:59 06:59 Intake Total 1253 990 600 Output Total 807 825 600 Balance 446 165 0 - Labs Result Diagrams: 05/04/17 05:35 05/04/17 05:35 Troponin/CKMB CK-MB (CK-2) 12.4 ng/mL (0-6.6) H* 04/27/17 11:40 Troponin I 9.863 ng/mL (< 0.028) H* 04/27/17 11:40 - Assessment/Plan Pt. was seen and eval. by me. I agree with the A/P by the RN DIGESTIVE
--- NOTE | 2017-05-05 18:39 | PRG ---
DATE OF SERVICE: 05/05/2017 SERVICE: Pulmonary Medicine. INTERVAL HISTORY: The patient is doing really well from a respiratory standpoint. She denies any cu rrent fevers, chills, nausea, vomiting or chest discomfort. She is breathing comfortably. I woke he r up from a gentle sleep. There were no overnight events other than going into atrial fibrillation b riefly. She has subsequently converted. She has a normal rate. She was placed on an amiodarone dri p transiently, but has been converted over to p.o. this morning. Otherwise, there has been no signif icant change to her condition. PHYSICAL EXAMINATION: VITAL SIGNS: Afebrile, pulse 60, blood pressure 156/66, respirations 18, saturation 95% on 2 liters of nasal cannula. GENERAL: The patient is awake, alert, no apparent distress. LUNGS: Excellent air entry with no prolonged expiratory phase, wheezing, rhonchi or crackles. HEART: Normal rate, regular. ABDOMEN: Soft, nontender, nondistended. Bowel sounds are positive. MUSCULOSKELETAL: No cyanosis or clubbing. There is no pitting in the bilateral lower extremities. GENITOURINARY: No Marr catheter in place. NEUROLOGIC: Grossly nonfocal. ASSESSMENT: 1. Status post coronary bypass graft. 2. Torsades, remote. 3. Respiratory failure, resolving. 4. Paroxysmal atrial fibrillation. PLAN: From a purely respiratory perspective, she is stable for transition out of the IMCU to telemet ry unit. Pulmonary or Critical Care will continue to follow while she remains in this location.
[2017-05-05] MEDS: Atorvastatin Calcium 40 MG TAB PO SCH (20:17)
[2017-05-05] MEDS: Amiodarone 200 MG TAB PO SCH (20:17)
[2017-05-05] MEDS: Ubidecarenone 50 MG CAP PO SCH (20:17)
[2017-05-06] MEDS: hydrALAZINE 20 MG/ML VIAL SLOW IVP PRN (00:47)
[2017-05-06] MEDS: Levothyroxine Sodium 75 MCG TAB PO SCH (05:24)
[2017-05-06] MEDS: Acetaminophen 325 MG TAB PO PRN (05:25)
[2017-05-06] MEDS: Nebivolol HCl 5 MG TAB PO SCH (08:21)
[2017-05-06] MEDS: Famotidine 20 MG TAB PO SCH (08:22)
[2017-05-06] MEDS: Amiodarone 200 MG TAB PO SCH ×2 (08:22→20:41)
[2017-05-06] MEDS: Aspirin 81 mg Enteric Coated Tablet PO SCH (08:22)
[2017-05-06] MEDS: Enoxaparin Sodium 30 MG/0.3 ML SYRINGE SC SCH (08:22)
[2017-05-06] MEDS: Amlodipine 5 MG TAB PO SCH (10:05)
[2017-05-06] MEDS: Bisacodyl 5 MG TAB PO PRN (10:05)
--- NOTE | 2017-05-06 13:32 | PDOC.CTH ---
Cardiology Progress Note - Subjective She is doing well. No new issues. - Objective Vital Signs Temp Pulse Resp BP Pulse Ox 05/06/17 12:00 97.7 F 66 18 166/71 H 96 05/06/17 08:00 97.6 F 66 18 95 05/06/17 07:42 97.6 F 66 18 172/65 H 98 05/06/17 06:00 98.6 F 63 20 157/58 H 98 05/06/17 04:30 98.6 F 64 20 181/67 H 98 05/06/17 03:22 66 18 96 05/06/17 02:00 64 20 127/44 L 91 L Admit Weight 111 lb 3.2 oz Weight 130 lb 1.6 oz 05/05/17 05/06/17 05/07/17 06:59 06:59 06:59 Intake Total 990 770 360 Output Total 825 950 Balance 165 -180 360 - Physical Examination General/Neuro: alert & oriented x3, NAD Neck: no JVD present Lungs: unlabored respirations Heart: RRR Abdomen: NT/ND Extremities: other: (no edema.) - Telemetry Telemetry Rhythm: NSR - Labs Result Diagrams: 05/04/17 05:35 05/04/17 05:35 Troponin/CKMB CK-MB (CK-2) 12.4 ng/mL (0-6.6) H* 04/27/17 11:40 Troponin I 9.863 ng/mL (< 0.028) H* 04/27/17 11:40 - Assessment/Plan 1. CAD, S/P CABG x 4 on 04/24/17 Saph-diag, LAN, OM, and RCA - 2. Ventricular fibrillation arrest: on PO Amiodarone PO. Will need lifevest before discharge. 3. Post Afib - remains SR, on Amiodarone PO. 4. HTN 5. Ischemic CM, EF at now at 35-40%. 6. Hypothyroid. PLAN: - Placement - To rehab - Lifevest before discharge due to to VT arrest. - Continue amiodarone PO at 200 mg BID.
--- NOTE | 2017-05-06 16:46 | PDOC.PN ---
- Subjective Encounter Start Date: 05/06/17 Encounter Start Time: 16:46 Patient seen and examined. No new complaints. No overnight events - Objective MAR Reviewed: Yes Vital Signs & Weight: Vital Signs (12 hours) Temp Pulse Resp BP Pulse Ox 05/06/17 15:51 97.4 F L 60 18 147/68 H 94 L 05/06/17 12:00 97.7 F 66 18 166/71 H 96 05/06/17 08:00 97.6 F 66 18 95 05/06/17 07:42 97.6 F 66 18 172/65 H 98 05/06/17 06:00 98.6 F 63 20 157/58 H 98 Weight Admit Weight 111 lb 3.2 oz Weight 130 lb 1.6 oz Most Recent Monitor Data Heart Rate from ECG 90 NIBP 131/72 NIBP BP-Mean 110 Respiration from ECG 20 SpO2 94 I&O: 05/05/17 05/06/17 05/07/17 06:59 06:59 06:59 Intake Total 990 770 360 Output Total 825 950 Balance 165 -180 360 Result Diagrams: 05/04/17 05:35 05/04/17 05:35 Phys Exam - Physical Examination Constitutional: NAD HEENT: PERRLA Neck: no JVD Respiratory: no wheezing Cardiovascular: no significant murmur Gastrointestinal: non-tender Musculoskeletal: pulses present Neurological: moves all 4 limbs Psychiatric: A&O x 3 Dx/Plan (1) CAD (coronary artery disease) Code(s): I25.10 - ATHSCL HEART DISEASE OF [place] CORONARY ARTERY W/O ANG PCTRS Status: Chronic Qualifiers: Comment: s/p cabg on 04/24 (2) Hematoma of rectus sheath Code(s): S30.1XXA - CONTUSION OF ABDOMINAL WALL, INITIAL ENCOUNTER Status: Acute (3) Hypothyroid Code(s): E03.9 - HYPOTHYROIDISM, UNSPECIFIED Status: Chronic (4) Hyperlipidemia Code(s): E78.5 - HYPERLIPIDEMIA, UNSPECIFIED Status: Chronic (5) HTN (hypertension) Code(s): I10 - ESSENTIAL (PRIMARY) HYPERTENSION Status: Chronic Qualifiers: Comment: labile (6) Cardiac arrest Code(s): I46.9 - CARDIAC ARREST, CAUSE UNSPECIFIED Status: Resolved Comment : s/p Torsades de Pointes (7) Ventricular fibrillation Code(s): I49.01 - VENTRICULAR FIBRILLATION Status: Acute (8) Acute respiratory failure Code(s): J96.00 - ACUTE RESPIRATORY FAILURE, UNSP W HYPOXIA OR HYPERCAPNIA Status: Acute Comment: Extubated - Plan * . CAD, S/P CABG x 4 on 04/24/17 Saph-diag, LAN, OM, and RCA - 2. Ventricular fibrillation arrest: on PO Amiodarone PO. Will need lifevest before discharge. 3. Post Afib - remains SR, on Amiodarone PO. 4. HTN 5. Ischemic CM, EF at now at 35-40%. 6. Hypothyroid. PLAN: - Placement - To rehab - Lifevest before discharge due to to VT arrest. - Continue amiodarone PO at 200 mg BID.
--- NOTE | 2017-05-06 19:55 | PRG ---
DATE OF SERVICE: 05/06/2017 SUBJECTIVE: Ms. Ohara was examined. Her course has been reviewed. OBJECTIVE: VITAL SIGNS: Stable. She is afebrile, heart rate in the 60s, respiratory rate is 18, oximetry 94, b lood pressure 166/71. LUNGS: Clear. HEART: Regular rhythm. ABDOMEN: Soft. Intake and output's positive 165. LABORATORY DATA: White count 11.4 on the . No CBC since then, hemoglobin was 8.8, platelets 301 . Electrolytes, BUN is 45, creatinine 1.17 on the . IMPRESSION: 1. Status post coronary artery bypass grafting. 2. Underlying dementia. 3. Status post torsades. 4. Code followed by rapid atrial fibrillation followed by intubation. She had multiple short rounds of CPR, but apparently has not suffered any significant anoxic or hypoperfusion injury. 5. Post code extreme hypoxemia with a clear chest x-ray, empirically anticoagulated for possible thr omboembolic disease. 6. Depressed left ventricular function after the code compared to a pre code, normal LV function and this is apparently clinically improved. 7. Deconditioning and fall risk, tentatively for rehabilitation evaluation. 7. History of hypertension. 8. History of hypothyroidism. She is being considered for LifeVest. Her ejection fraction is improving. I met with the daughter a nd answered all of her questions. The daughter I met with today was at the bedside has the most real istic understanding of what Ms. Ohara's future may be with her dementia. This will likely progress and full recovery to her premorbid condition is unlikely given that we are dealing with some dementi a. She does not like being alone, so family has been done a great job of being at the bedside most o f the time. I am not sure at what point, her recovery will plateau. The bigger question per my discussion with Dr. Liang today and Dr. Rodarte is whether or not she shoul d continue to be empirically anticoagulated. With her atrial fibrillation and what appeared to be hypoxemia out of proportion to her radiographic findings, I would wonder if it not would be reasonable to at least continue with anticoagulants for 2 -3 months. On the other side of the coin, the issues of a fall risk with no clear evidence of thromboembolic dis ease and only transient atrial fibrillation. We will continue to follow along with the other physicians caring for her. She is now only on 30 mg of Lovenox the day.
[2017-05-06] MEDS: Ubidecarenone 50 MG CAP PO SCH (20:41)
[2017-05-06] MEDS: Atorvastatin Calcium 40 MG TAB PO SCH (20:41)
[2017-05-07] MEDS: Levothyroxine Sodium 75 MCG TAB PO SCH (05:53)
--- NOTE | 2017-05-07 08:07 | PRG ---
DATE OF SERVICE: 05/07/2017 SUBJECTIVE: Did well overnight. She has no complaints. Her is at the bedside. I spent elijah roximately 20 minutes with him just discussing future care issues. I encouraged him to set boundarie s regarding aggressive care in the future. OBJECTIVE: VITAL SIGNS: She is afebrile, heart rate is 58, respiratory rate is 20, oximetry is 94, blood pressu re 160/60. LUNGS: Remarkable for end-expiratory wheezes. I think these are just secondary to retained secretio ns associated with sleeping. HEART: Regular rhythm. ABDOMEN: Soft. LABORATORY DATA: There are no new labs. IMPRESSION: 1. Status post coronary artery bypass grafting. 2. Dementia, most likely secondary to ischemic white matter disease. 3. Status post torsades. 4. Post-code hypoxemia, felt to be possibly secondary to thromboembolic disease. At a minimum, I th ink she needs to be on prophylactic dose Eliquis. I have started that today and stopped her Lovenox. [place] to fully anticoagulate her, because of her fall risk, as I have explained to the . 5. Rapid atrial fibrillation post code. PLAN: Continue current supportive care with placement towards group home.
[2017-05-07] MEDS: Aspirin 81 mg Enteric Coated Tablet PO SCH (08:09)
[2017-05-07] MEDS: Apixaban 5 MG TAB PO SCH ×2 (08:09→21:29)
[2017-05-07] MEDS: Nebivolol HCl 5 MG TAB PO SCH (08:09)
[2017-05-07] MEDS: Amiodarone 200 MG TAB PO SCH ×2 (08:10→21:30)
[2017-05-07] MEDS: Famotidine 20 MG TAB PO SCH (08:10)
[2017-05-07] MEDS: Amlodipine 5 MG TAB PO SCH (08:10)
--- NOTE | 2017-05-07 11:44 | PDOC.CTH ---
Cardiology Progress Note - Subjective No new issues. - Objective Vital Signs Temp Pulse Resp BP BP Pulse Ox 05/07/17 10:03 57 L 16 94 L 05/07/17 08:10 64 133/92 H 05/07/17 08:00 98 F 57 L 16 165/61 H 97 05/07/17 06:30 64 20 145/51 H 94 L 05/07/17 04:00 97.7 F 58 L 20 160/60 H 94 L 05/07/17 00:00 97.7 F 62 20 155/60 H 92 L Admit Weight 111 lb 3.2 oz Weight 130 lb 1.6 oz 05/06/17 05/07/17 05/08/17 06:59 06:59 06:59 Intake Total 770 600 Output Total 950 350 Balance -180 250 - Physical Examination General/Neuro: NAD Neck: no JVD present Lungs: CTA, unlabored respirations Heart: RRR Abdomen: NT/ND Extremities: other: (no edema.) - Telemetry Telemetry Rhythm: NSR - Labs Result Diagrams: 05/04/17 05:35 05/04/17 05:35 Troponin/CKMB CK-MB (CK-2) 12.4 ng/mL (0-6.6) H* 04/27/17 11:40 Troponin I 9.863 ng/mL (< 0.028) H* 04/27/17 11:40 - Assessment/Plan 1. CAD, S/P CABG x 4 on 04/24/17 Saph-diag, LAN, OM, and RCA - 2. Ventricular fibrillation arrest: on PO Amiodarone PO. Will need lifevest before discharge. 3. Post Afib - remains SR, on Amiodarone PO. 4. HTN 5. Ischemic CM, EF at now at 35-40%. 6. Hypothyroid. PLAN: - Placement - Lifevest before discharge due to to VT arrest. - Continue amiodarone PO at 200 mg BID.
[2017-05-07 15:22] VITALS: BMI 21.6
--- NOTE | 2017-05-07 16:34 | PDOC.PN ---
- Subjective Encounter Start Date: 05/07/17 Encounter Start Time: 16:33 Patient seen and examined. No new complaints. No overnight events - Objective MAR Reviewed: Yes Vital Signs & Weight: Vital Signs (12 hours) Temp Pulse Pulse Pulse Resp BP BP 05/07/17 16:00 97.6 F 59 L 20 05/07/17 12:00 97.5 F L 61 18 05/07/17 10:03 57 L 16 05/07/17 09:30 104 H 92 163/66 H 05/07/17 08:10 64 133/92 H 05/07/17 08:00 98 F 57 L 16 05/07/17 06:30 64 20 BP BP Pulse Ox Pulse Ox Pulse Ox Pulse Ox 05/07/17 16:00 155/57 H 96 05/07/17 12:00 158/60 H 94 L 05/07/17 10:03 94 L 05/07/17 09:30 165/66 H 88 L 92 L 90 L 05/07/17 08:10 05/07/17 08:00 165/61 H 97 05/07/17 06:30 145/51 H 94 L Weight Admit Weight 111 lb 3.2 oz Weight 130 lb 1.6 oz Most Recent Monitor Data Heart Rate from ECG 90 NIBP 131/72 NIBP BP-Mean 110 Respiration from ECG 20 SpO2 94 I&O: 05/06/17 05/07/17 05/08/17 06:59 06:59 06:59 Intake Total 770 600 Output Total 950 350 Balance -180 250 Result Diagrams: 05/04/17 05:35 05/04/17 05:35 Phys Exam - Physical Examination Constitutional: NAD HEENT: PERRLA Neck: no JVD Respiratory: no wheezing Cardiovascular: no significant murmur Gastrointestinal: non-tender Musculoskeletal: pulses present Neurological: moves all 4 limbs Psychiatric: A&O x 3 Dx/Plan (1) CAD (coronary artery disease) Code(s): I25.10 - ATHSCL HEART DISEASE OF [place] CORONARY ARTERY W/O ANG PCTRS Status: Chronic Qualifiers: Comment: s/p cabg on 04/24 (2) Hematoma of rectus sheath Code(s): S30.1XXA - CONTUSION OF ABDOMINAL WALL, INITIAL ENCOUNTER Status: Acute (3) Hypothyroid Code(s): E03.9 - HYPOTHYROIDISM, UNSPECIFIED Status: Chronic (4) Hyperlipidemia Code(s): E78.5 - HYPERLIPIDEMIA, UNSPECIFIED Status: Chronic (5) HTN (hypertension) Code(s): I10 - ESSENTIAL (PRIMARY) HYPERTENSION Status: Chronic Qualifiers: Comment: labile (6) Cardiac arrest Code(s): I46.9 - CARDIAC ARREST, CAUSE UNSPECIFIED Status: Resolved Comment : s/p Torsades de Pointes (7) Ventricular fibrillation Code(s): I49.01 - VENTRICULAR FIBRILLATION Status: Acute (8) Acute respiratory failure Code(s): J96.00 - ACUTE RESPIRATORY FAILURE, UNSP W HYPOXIA OR HYPERCAPNIA Status: Acute Comment: Extubated - Plan * 1. CAD, S/P CABG x 4 on 04/24/17 Saph-diag, LAN, OM, and RCA - 2. Ventricular fibrillation arrest: on PO Amiodarone PO. Will need lifevest before discharge. 3. Post Afib - remains SR, on Amiodarone PO. 4. HTN 5. Ischemic CM, EF at now at 35-40%. 6. Hypothyroid. PLAN: - Placement - Lifevest before discharge due to to VT arrest. - Continue amiodarone PO at 200 mg BID.
[2017-05-07] MEDS ORDERED: Fleet Enema 133 ML BOT PR PRN (16:59)
[2017-05-07] MEDS: Atorvastatin Calcium 40 MG TAB PO SCH (21:29)
[2017-05-07] MEDS: Ubidecarenone 50 MG CAP PO SCH (21:29)
[2017-05-08] MEDS: Levothyroxine Sodium 75 MCG TAB PO SCH (06:42)
[2017-05-08] MEDS: Famotidine 20 MG TAB PO SCH (08:35)
[2017-05-08] MEDS: Amlodipine 5 MG TAB PO SCH (08:35)
[2017-05-08] MEDS: Amiodarone 200 MG TAB PO SCH ×2 (08:35→20:27)
[2017-05-08] MEDS: Apixaban 5 MG TAB PO SCH ×2 (08:35→20:26)
[2017-05-08] MEDS: Aspirin 81 mg Enteric Coated Tablet PO SCH (08:35)
[2017-05-08] MEDS: Nebivolol HCl 5 MG TAB PO SCH (08:36)
--- NOTE | 2017-05-08 14:04 | PDOC.PN ---
- Subjective Encounter Start Date: 05/08/17 Encounter Start Time: 14:03 Patient seen and examined. No new complaints. No overnight events got the life vest - Objective MAR Reviewed: Yes Vital Signs & Weight: Vital Signs (12 hours) Temp Pulse Pulse Pulse Resp BP BP 05/08/17 11:38 96.5 F L 68 18 05/08/17 10:51 65 60 178/62 H 163/59 H 05/08/17 08:35 62 05/08/17 08:00 98.6 F 62 18 05/08/17 07:00 98.6 F 62 18 05/08/17 06:55 05/08/17 06:25 63 20 05/08/17 04:00 97.4 F L 90 20 BP Pulse Ox Pulse Ox Pulse Ox 05/08/17 11:38 169/69 H 95 05/08/17 10:51 97 93 L 05/08/17 08:35 05/08/17 08:00 93 L 05/08/17 07:00 130/50 L 93 L 05/08/17 06:55 100 05/08/17 06:25 100 05/08/17 04:00 140/58 L 95 Weight Admit Weight 111 lb 3.2 oz Weight 130 lb 11.2 oz Most Recent Monitor Data Heart Rate from ECG 90 NIBP 131/72 NIBP BP-Mean 110 Respiration from ECG 20 SpO2 94 I&O: 05/07/17 05/08/17 05/09/17 06:59 06:59 06:59 Intake Total 600 150 Output Total 350 200 Balance 250 -50 Result Diagrams: 05/04/17 05:35 05/04/17 05:35 Phys Exam - Physical Examination Constitutional: NAD HEENT: PERRLA Neck: no JVD Respiratory: no rales Cardiovascular: no significant murmur Gastrointestinal: non-tender Musculoskeletal: pulses present Neurological: moves all 4 limbs Psychiatric: A&O x 3 Dx/Plan (1) CAD (coronary artery disease) Code(s): I25.10 - ATHSCL HEART DISEASE OF [place] CORONARY ARTERY W/O ANG PCTRS Status: Chronic Qualifiers: Comment: s/p cabg on 04/24 (2) Hematoma of rectus sheath Code(s): S30.1XXA - CONTUSION OF ABDOMINAL WALL, INITIAL ENCOUNTER Status: Acute (3) Hypothyroid Code(s): E03.9 - HYPOTHYROIDISM, UNSPECIFIED Status: Chronic (4) Hyperlipidemia Code(s): E78.5 - HYPERLIPIDEMIA, UNSPECIFIED Status: Chronic (5) HTN (hypertension) Code(s): I10 - ESSENTIAL (PRIMARY) HYPERTENSION Status: Chronic Qualifiers: Comment: labile (6) Cardiac arrest Code(s): I46.9 - CARDIAC ARREST, CAUSE UNSPECIFIED Status: Resolved Comment : s/p Torsades de Pointes (7) Ventricular fibrillation Code(s): I49.01 - VENTRICULAR FIBRILLATION Status: Acute (8) Acute respiratory failure Code(s): J96.00 - ACUTE RESPIRATORY FAILURE, UNSP W HYPOXIA OR HYPERCAPNIA Status: Acute Comment: Extubated - Plan * doing well * awaiting insurance approval for rehab to [facility] * f/u card plan
[2017-05-08] MEDS: Ubidecarenone 50 MG CAP PO SCH (20:26)
[2017-05-08] MEDS: Atorvastatin Calcium 40 MG TAB PO SCH (20:26)
--- NOTE | 2017-05-08 20:51 | PDOC.CTH ---
Cardiology Progress Note - Subjective She is doing well. No new issues. Lifevest was set up yesterday and had one hour of education. - Objective Vital Signs Temp Pulse Pulse Pulse Resp BP BP 05/08/17 20:18 97.9 F 61 16 05/08/17 15:40 96.9 F L 62 18 05/08/17 15:04 68 60 169/70 H 154/63 H 05/08/17 11:38 96.5 F L 68 18 05/08/17 10:51 65 60 178/62 H 163/59 H BP Pulse Ox Pulse Ox Pulse Ox 05/08/17 20:18 168/66 H 94 L 05/08/17 15:40 169/70 H 98 05/08/17 15:04 93 L 96 05/08/17 11:38 169/69 H 95 05/08/17 10:51 97 93 L Admit Weight 111 lb 3.2 oz Weight 130 lb 11.2 oz 05/07/17 05/08/17 05/09/17 06:59 06:59 06:59 Intake Total 600 150 500 Output Total 350 200 Balance 250 -50 500 - Physical Examination General/Neuro: NAD Neck: no JVD present Lungs: CTA, unlabored respirations Heart: RRR Abdomen: NT/ND Extremities: other: (no edema.) - Telemetry Telemetry Rhythm: NSR - Labs Result Diagrams: 05/04/17 05:35 05/04/17 05:35 Troponin/CKMB CK-MB (CK-2) 12.4 ng/mL (0-6.6) H* 04/27/17 11:40 Troponin I 9.863 ng/mL (< 0.028) H* 04/27/17 11:40 - Assessment/Plan 1. CAD, S/P CABG x 4 on 04/24/17 Saph-diag, LAN, OM, and RCA - 2. Ventricular fibrillation arrest: on PO Amiodarone PO. Will need lifevest before discharge. 3. Post Afib - remains SR, on Amiodarone PO. 4. HTN 5. Ischemic CM, EF at now at 35-40%. 6. Hypothyroid. PLAN: - Placement - Continue amiodarone PO at 200 mg BID for 10 more days then amiodarone 200 mg daily. - Transfer to rehab at any time from cardiac perspective.
[2017-05-09] MEDS: Levothyroxine Sodium 75 MCG TAB PO SCH (05:25)
[2017-05-09 05:27] LABS: Hemoglobin 9.2 g/dL (12.0-16.0); Platelet Count 305 thou/uL (130-400)
[2017-05-09] MEDS: Amlodipine 5 MG TAB PO SCH (09:10)
[2017-05-09] MEDS: Apixaban 5 MG TAB PO SCH ×2 (09:10→20:19)
[2017-05-09] MEDS: Nebivolol HCl 5 MG TAB PO SCH (09:10)
[2017-05-09] MEDS: Famotidine 20 MG TAB PO SCH (09:11)
[2017-05-09] MEDS: Aspirin 81 mg Enteric Coated Tablet PO SCH (09:11)
[2017-05-09] MEDS: Amiodarone 200 MG TAB PO SCH ×2 (09:12→20:19)
[2017-05-09] MEDS: Acetaminophen 325 MG TAB PO PRN ×2 (09:29→20:19)
[2017-05-09] MEDS ORDERED: Ondansetron HCl/PF 4 MG/2 ML Vial SLOW IVP PRN (09:39)
[2017-05-09] MEDS: Ondansetron ODT 4 MG TAB PO PRN (09:52)
[2017-05-09 11:21] LABS: Albumin 2.8 g/dL (3.4-4.8); Anion Gap 13 mmol/L (10-20); BUN (Urea Nitrogen) 18 mg/dL (9.8-20.1); BUN/Creatinine Ratio 22.22; Calc. Creatinine Clearance 47 mL/min (70-130); Calcium 8.5 mg/dL (7.8-10.44); Carbon Dioxide 22 mmol/L (23-31); Chloride 111 mmol/L (98-107); Estimated GFR-MDRD 67; Glucose 111 mg/dL (83-110); Magnesium 1.7 mg/dL (1.6-2.6); Phosphorus 3.1 mg/dL (2.3-4.7); Potassium 3.3 mmol/L (3.5-5.1); Sodium 143 mmol/L (136-145)
--- NOTE | 2017-05-09 14:49 | PDOC.CTH ---
Cardiology Progress Note - Subjective She went back to afib overnight. She was SOB with HR in the 150's. She has converted back to sinus since. - Objective Vital Signs Temp Pulse Pulse Resp BP BP BP 05/09/17 13:58 120 H 157/55 H 05/09/17 11:47 97.8 F 64 18 05/09/17 09:42 05/09/17 09:35 64 16 05/09/17 09:10 62 173/59 H 05/09/17 08:00 97.8 F 66 18 05/09/17 07:30 97.8 F 66 18 160/61 H 05/09/17 03:45 97.5 F L 90 18 132/65 BP Pulse Ox 05/09/17 13:58 05/09/17 11:47 160/56 H 100 05/09/17 09:42 100 05/09/17 09:35 05/09/17 09:10 05/09/17 08:00 100 05/09/17 07:30 100 05/09/17 03:45 96 Admit Weight 111 lb 3.2 oz Weight 129 lb 5 oz 05/08/17 05/09/17 05/10/17 06:59 06:59 06:59 Intake Total 150 740 Output Total 200 225 Balance -50 515 - Physical Examination General/Neuro: alert & oriented x3, NAD Neck: no JVD present Lungs: unlabored respirations Heart: RRR Abdomen: NT/ND Extremities: + edema B (trace) - Telemetry Telemetry Rhythm: Afib --> NSR - Labs Result Diagrams: 05/09/17 05:04 05/09/17 10:29 Troponin/CKMB CK-MB (CK-2) 12.4 ng/mL (0-6.6) H* 04/27/17 11:40 Troponin I 9.863 ng/mL (< 0.028) H* 04/27/17 11:40 - Assessment/Plan 1. CAD, S/P CABG x 4 on 04/24/17 Saph-diag, LAN, OM, and RCA - 2. Ventricular fibrillation arrest: on PO Amiodarone PO. Will need lifevest before discharge. 3. Post Afib. 4. HTN 5. Ischemic CM, EF at now at 35-40%. 6. Hypothyroid. PLAN: - Continue amiodarone PO at 200 mg BID for 9 more days then amiodarone 200 mg daily. - She was denied for rehab and apparently only qualifies for SNF. - Replace K - Continue Eliquis at current dose for stroke prophylaxis .
--- NOTE | 2017-05-09 15:08 | PDOC.PN ---
- Subjective Encounter Start Date: 05/09/17 Encounter Start Time: 15:07 had afib last night now sinus no n/v no f/c - Objective Vital Signs & Weight: Vital Signs (12 hours) Temp Pulse Pulse Resp BP BP BP 05/09/17 13:58 120 H 157/55 H 05/09/17 11:47 97.8 F 64 18 05/09/17 09:42 05/09/17 09:35 64 16 05/09/17 09:10 62 173/59 H 05/09/17 08:00 97.8 F 66 18 05/09/17 07:30 97.8 F 66 18 160/61 H 05/09/17 03:45 97.5 F L 90 18 132/65 BP Pulse Ox 05/09/17 13:58 05/09/17 11:47 160/56 H 100 05/09/17 09:42 100 05/09/17 09:35 05/09/17 09:10 05/09/17 08:00 100 05/09/17 07:30 100 05/09/17 03:45 96 Weight Admit Weight 111 lb 3.2 oz Weight 129 lb 5 oz Most Recent Monitor Data Heart Rate from ECG 90 NIBP 131/72 NIBP BP-Mean 110 Respiration from ECG 20 SpO2 94 I&O: 05/08/17 05/09/17 05/10/17 06:59 06:59 06:59 Intake Total 150 740 Output Total 200 225 Balance -50 515 Result Diagrams: 05/09/17 05:04 05/09/17 10:29 Phys Exam - Physical Examination Constitutional: NAD HEENT: PERRLA Neck: no JVD Respiratory: no rales Cardiovascular: no significant murmur Gastrointestinal: non-tender Musculoskeletal: pulses present Neurological: moves all 4 limbs Psychiatric: A&O x 3 Dx/Plan (1) CAD (coronary artery disease) Code(s): I25.10 - ATHSCL HEART DISEASE OF [place] CORONARY ARTERY W/O ANG PCTRS Status: Chronic Qualifiers: Comment: s/p cabg on 04/24 (2) Hematoma of rectus sheath Code(s): S30.1XXA - CONTUSION OF ABDOMINAL WALL, INITIAL ENCOUNTER Status: Acute (3) Hypothyroid Code(s): E03.9 - HYPOTHYROIDISM, UNSPECIFIED Status: Chronic (4) Hyperlipidemia Code(s): E78.5 - HYPERLIPIDEMIA, UNSPECIFIED Status: Chronic (5) HTN (hypertension) Code(s): I10 - ESSENTIAL (PRIMARY) HYPERTENSION Status: Chronic Qualifiers: Comment: labile (6) Cardiac arrest Code(s): I46.9 - CARDIAC ARREST, CAUSE UNSPECIFIED Status: Resolved Comment : s/p Torsades [place] Point[place] (7) Ventricular fibrillation Code(s): I49.01 - VENTRICULAR FIBRILLATION Status: Acute (8) Acute respiratory failure Code(s): J96.00 - ACUTE RESPIRATORY FAILURE, UNSP W HYPOXIA OR HYPERCAPNIA Status: Acute Comment: Extubated - Plan * 1. CAD, S/P CABG x 4 on 04/24/17 Saph-diag, LAN, OM, and RCA - 2. Ventricular fibrillation arrest: on PO Amiodarone PO. Will need lifevest before discharge. 3. Post Afib. 4. HTN 5. Ischemic CM, EF at now at 35-40%. 6. Hypothyroid. PLAN: - Continue amiodarone PO at 200 mg BID for 9 more days then amiodarone 200 mg daily. - She was denied for rehab and apparently only qualifies for SNF. - Replace K - Continue Eliquis at current dose for stroke prophylaxis
[2017-05-09] MEDS: Ubidecarenone 50 MG CAP PO SCH (20:19)
[2017-05-09] MEDS: Latanoprost 0.005% Ophth Soln 2.5 ml Bottle EA EYE SCH (20:19)
[2017-05-09] MEDS: Atorvastatin Calcium 40 MG TAB PO SCH (20:19)
[2017-05-10] MEDS: Bisacodyl 5 MG TAB PO PRN (02:24)
[2017-05-10] MEDS: Levothyroxine Sodium 75 MCG TAB PO SCH (05:54)
[2017-05-10] MEDS: Amlodipine 5 MG TAB PO SCH (09:20)
[2017-05-10] MEDS: Amiodarone 200 MG TAB PO SCH (09:21)
[2017-05-10] MEDS: Apixaban 5 MG TAB PO SCH ×2 (09:22→21:10)
[2017-05-10] MEDS: Aspirin 81 mg Enteric Coated Tablet PO SCH (09:25)
[2017-05-10] MEDS: Nebivolol HCl 5 MG TAB PO SCH (09:25)
[2017-05-10] MEDS: Famotidine 20 MG TAB PO SCH (09:25)
[2017-05-10] MEDS: Ondansetron ODT 4 MG TAB PO PRN (09:40)
--- NOTE | 2017-05-10 10:54 | PDOC.PN ---
- Subjective Encounter Start Date: 05/10/17 Encounter Start Time: 10:53 Patient seen and examined. No new complaints. No overnight events - Objective MAR Reviewed: Yes Vital Signs & Weight: Vital Signs (12 hours) Temp Pulse Resp BP BP BP Pulse Ox 05/10/17 09:20 72 162/82 H 05/10/17 07:00 97.8 F 71 22 H 162/82 H 96 05/10/17 04:00 97.4 F L 57 L 16 152/73 H 91 L 05/10/17 00:46 57 L 18 168/68 H 94 L Weight Admit Weight 111 lb 3.2 oz Weight 130 lb 3 oz Most Recent Monitor Data Heart Rate from ECG 90 NIBP 131/72 NIBP BP-Mean 110 Respiration from ECG 20 SpO2 94 I&O: 05/09/17 05/10/17 05/11/17 06:59 06:59 06:59 Intake Total 740 1080 Output Total 225 300 Balance 515 780 Result Diagrams: 05/09/17 05:04 05/09/17 10:29 Phys Exam - Physical Examination Constitutional: NAD HEENT: PERRLA Neck: no JVD Respiratory: no rales Cardiovascular: no significant murmur Gastrointestinal: non-tender Musculoskeletal: pulses present Neurological: moves all 4 limbs Psychiatric: A&O x 3 Dx/Plan (1) CAD (coronary artery disease) Code(s): I25.10 - ATHSCL HEART DISEASE OF [place] CORONARY ARTERY W/O ANG PCTRS Status: Chronic Qualifiers: Comment: s/p cabg on 04/24 (2) Hematoma of rectus sheath Code(s): S30.1XXA - CONTUSION OF ABDOMINAL WALL, INITIAL ENCOUNTER Status: Acute (3) Hypothyroid Code(s): E03.9 - HYPOTHYROIDISM, UNSPECIFIED Status: Chronic (4) Hyperlipidemia Code(s): E78.5 - HYPERLIPIDEMIA, UNSPECIFIED Status: Chronic (5) HTN (hypertension) Code(s): I10 - ESSENTIAL (PRIMARY) HYPERTENSION Status: Chronic Qualifiers: Comment: labile (6) Cardiac arrest Code(s): I46.9 - CARDIAC ARREST, CAUSE UNSPECIFIED Status: Resolved Comment : s/p Torsades de Pointes (7) Ventricular fibrillation Code(s): I49.01 - VENTRICULAR FIBRILLATION Status: Acute (8) Acute respiratory failure Code(s): J96.00 - ACUTE RESPIRATORY FAILURE, UNSP W HYPOXIA OR HYPERCAPNIA Status: Acute Comment: Extubated - Plan * family wants to go home with hh * f/u cardilogy and cvts plan
[2017-05-10] MEDS: Ubidecarenone 50 MG CAP PO SCH (21:10)
[2017-05-10] MEDS: Atorvastatin Calcium 40 MG TAB PO SCH (21:10)
[2017-05-10] MEDS: Latanoprost 0.005% Ophth Soln 2.5 ml Bottle EA EYE SCH (21:11)
[2017-05-11] MEDS: Levothyroxine Sodium 75 MCG TAB PO SCH (04:54)
[2017-05-11 05:13] LABS: Hemoglobin 9.5 g/dL (12.0-16.0); Platelet Count 337 thou/uL (130-400)
[2017-05-11] MEDS: Apixaban 5 MG TAB PO SCH (08:46)
[2017-05-11] MEDS: Nebivolol HCl 5 MG TAB PO SCH (08:47)
[2017-05-11] MEDS: Aspirin 81 mg Enteric Coated Tablet PO SCH (08:47)
[2017-05-11] MEDS: Famotidine 20 MG TAB PO SCH (08:47)
[2017-05-11] MEDS: Amlodipine 5 MG TAB PO SCH (08:47)
[2017-05-11 11:39] VITALS: BP 176/74; TEMP 97.9
--- NOTE | 2017-05-11 12:00 | PDOC.PN ---
- Subjective Encounter Start Date: 05/11/17 Encounter Start Time: 11:59 Patient seen and examined. No new complaints. No overnight events - Objective MAR Reviewed: Yes Vital Signs & Weight: Vital Signs (12 hours) Temp Pulse Resp BP BP Pulse Ox 05/11/17 11:38 97.9 F 62 18 176/74 H 90 L 05/11/17 08:47 69 153/68 H 05/11/17 08:00 98.4 F 69 20 98 05/11/17 07:00 98.4 F 69 20 153/68 H 90 L 05/11/17 04:00 97.8 F 58 L 18 167/83 H 90 L Weight Admit Weight 111 lb 3.2 oz Weight 130 lb 11.2 oz Most Recent Monitor Data Heart Rate from ECG 90 NIBP 131/72 NIBP BP-Mean 110 Respiration from ECG 20 SpO2 94 I&O: 05/10/17 05/11/17 05/12/17 06:59 06:59 06:59 Intake Total 1080 590 Output Total 300 600 Balance 780 -10 Result Diagrams: 05/11/17 05:00 05/11/17 05:00 Phys Exam - Physical Examination Constitutional: NAD HEENT: PERRLA Neck: no JVD Respiratory: no wheezing Cardiovascular: no significant murmur Gastrointestinal: non-tender Musculoskeletal: pulses present Neurological: moves all 4 limbs Psychiatric: A&O x 3 Dx/Plan (1) CAD (coronary artery disease) Code(s): I25.10 - ATHSCL HEART DISEASE OF [place] CORONARY ARTERY W/O ANG PCTRS Status: Chronic Qualifiers: Comment: s/p cabg on 04/24 (2) Hematoma of rectus sheath Code(s): S30.1XXA - CONTUSION OF ABDOMINAL WALL, INITIAL ENCOUNTER Status: Acute (3) Hypothyroid Code(s): E03.9 - HYPOTHYROIDISM, UNSPECIFIED Status: Chronic (4) Hyperlipidemia Code(s): E78.5 - HYPERLIPIDEMIA, UNSPECIFIED Status: Chronic (5) HTN (hypertension) Code(s): I10 - ESSENTIAL (PRIMARY) HYPERTENSION Status: Chronic Qualifiers: Comment: labile (6) Cardiac arrest Code(s): I46.9 - CARDIAC ARREST, CAUSE UNSPECIFIED Status: Resolved Comment : s/p Torsades de Pointes (7) Ventricular fibrillation Code(s): I49.01 - VENTRICULAR FIBRILLATION Status: Acute (8) Acute respiratory failure Code(s): J96.00 - ACUTE RESPIRATORY FAILURE, UNSP W HYPOXIA OR HYPERCAPNIA Status: Acute Comment: Extubated - Plan * doing good * d/c home
--- NOTE | 2017-05-12 00:26 | DIS ---
DATE OF ADMISSION: 04/21/2017 DATE OF DISCHARGE: 05/11/2017 DISCHARGE DIAGNOSES: 1. Coronary artery disease status post coronary artery bypass graft on 04/24. 2. Status post torsades de pointes, has LifeVest in place. 3. Hematoma rectus sheath, resolved. 4. Hypothyroidism, stable. 5. Hyperlipidemia, stable. 6. Hypertension, stable. 7. Status post acute respiratory failure. 8. Status post extubation, doing well, stable. 9. The patient also has peripheral vascular disease, status post stent to the carotid artery and fem oral arteries. CONSULTANTS ON THE CASE: Cardiology, Cardiovascular, Thoracic surgery. DISCHARGE MEDICATIONS: Amiodarone 200 mg p.o. b.i.d. until 16 then 200 mg p.o. daily after that, N orvasc 5 mg p.o. daily, Eliquis 2.5 mg p.o. b.i.d., aspirin 81 p.o. daily, Lipitor 80 p.o. at bedtime , vitamin D3 and calcium tablets, Nexium 20 mg p.o. daily, Zetia 10 mg p.o. at bedtime, levothyroxine 75 mcg p.o. daily, Bystolic 5 p.o. daily, Benicar 20 p.o. at bedtime, Zofran 4 mg p.o. q.6 hours ___ __ . BRIEF HOSPITAL COURSE: This is an 86-year-old pleasant lady who came into the hospital with chest pa in. She had a cardiac catheterization done by Cardiology who found that she had coronary artery dise ase which required surgery. She had CABG , was recvering well during the hospital stay, but it was complicated by an episode of torsades after which she was intubated again. She was managed by [facility] when she was extubated later. She also had a rectal sheath hematoma, which was resolved. Alo marcus did well during this hospital stay and she was put on Eliquis and Cardiology and squeegeer and former follow ed her in this hospital stay. She recovered well. She was doing well with physical therapy right no w. LifeVest was ordered and arrangements for LifeVest was made. She was initially supposed to go to rehab, but she was rejected. She is right now going to go home with home health. Her ejection frac tion was 30-40% when checked postoperatively. She is right now medically stable to be discharged. S he was asked to come back to the emergency room in case symptoms recur. Total time for this discharge took 35 minutes. She is right now medically stable to be discharged [facility] outpatient followup with Cardiology and CVT as an outpatient.
--- NOTE | 2017-05-17 20:53 | EKG ---
Test Reason : Blood Pressure : / mmHG Vent. Rate : 070 BPM Atrial Rate : 070 BPM P-R Int : 198 ms QRS Dur : 090 ms QT Int : 424 ms P-R-T Axes : 065 047 036 degrees QTc Int : 457 ms Sinus rhythm with Premature atrial complexes in a pattern of bigeminy Otherwise normal ECG Confirmed by LYN TORREZ, EMILIA ([id number]), editor book POLI DEMPSEY ([id number]) on 05/17/2017 8:52:22 PM Referred By: Confirmed By:EMILIA NICHOLSON MD
[2017-05-20] MEDS ORDERED: Amiodarone 200 MG TAB PO SCH (09:00)
== END 2017-05-11 14:00 | disposition home health service (06) | DRG 233 ==
LOC: ERS 22:47 → 2SW 04-21 00:40 → OBSVTOIN 04-22 10:49 → CCU 04-23 09:14 → IMCU/EMU 05-04 11:44
PROVIDERS: ADMIT Internal Medicine; ATTEND Internal Medicine
PROC: 4A023N7 Measurement of Cardiac Sampling and Pressure, Left Heart, Percutaneous Approach (ICD-10-PCS; 2017-04-23)
PROC: B2111ZZ Fluoroscopy of Multiple Coronary Arteries using Low Osmolar Contrast (ICD-10-PCS; 2017-04-23)
PROC: B2151ZZ Fluoroscopy of Left Heart using Low Osmolar Contrast (ICD-10-PCS; 2017-04-23)
PROC: 021309W Bypass Coronary Artery, Four or More Arteries from Aorta with Autologous Venous Tissue, Open Approach (ICD-10-PCS; principal; 2017-04-24)
PROC: 06BQ4ZZ Excision of Left Saphenous Vein, Percutaneous Endoscopic Approach (ICD-10-PCS; 2017-04-24)
PROC: 5A1221Z Performance of Cardiac Output, Continuous (ICD-10-PCS; 2017-04-24)
PROC: 0BH17EZ Insertion of Endotracheal Airway into Trachea, Via Natural or Artificial Opening (ICD-10-PCS; 2017-04-27)
PROC: 5A1945Z Respiratory Ventilation, 24-96 Consecutive Hours (ICD-10-PCS; 2017-04-27)
PROC: 5A2204Z Restoration of Cardiac Rhythm, Single (ICD-10-PCS; 2017-04-27)
PROC: 5A12012 Performance of Cardiac Output, Single, Manual (ICD-10-PCS; 2017-04-27)
PROC: 06HY33Z Insertion of Infusion Device into Lower Vein, Percutaneous Approach (ICD-10-PCS; 2017-04-27)
DX: I25.110 Atherosclerotic heart disease of native coronary artery with unstable angina pectoris (principal); J96.00 Acute respiratory failure, unspecified whether with hypoxia or hypercapnia; I47.2 Ventricular tachycardia; G93.40 Encephalopathy, unspecified; J18.9 Pneumonia, unspecified organism; N17.9 Acute kidney failure, unspecified; I48.0 Paroxysmal atrial fibrillation; F03.90 Unspecified dementia, unspecified severity, without behavioral disturbance, psychotic disturbance, mood disturbance, and anxiety; I73.9 Peripheral vascular disease, unspecified; I49.01 Ventricular fibrillation; I46.9 Cardiac arrest, cause unspecified; E78.5 Hyperlipidemia, unspecified; K21.9 Gastro-esophageal reflux disease without esophagitis; I10 Essential (primary) hypertension; E03.9 Hypothyroidism, unspecified; Z86.73 Personal history of transient ischemic attack (TIA), and cerebral infarction without residual deficits; E78.00 Pure hypercholesterolemia, unspecified; M79.81 Nontraumatic hematoma of soft tissue; Z87.891 Personal history of nicotine dependence; I25.2 Old myocardial infarction; I25.5 Ischemic cardiomyopathy
CPT/HCPCS: 36415; 36416; 36430; 71010; 74176; 76942; 80048; 80053; 80061; 80069; 82553; 82565; 82805; 83735; 83880; 84100; 84484; 85007; 85014; 85018; 85025; 85027; 85049; 85347; 85610; 85730; 86850; 86900; 86901; 87040; 93005; 93010; 93306; 93458; 93798; 93970; 93976; 94002; 94003; 94150; 94640; 94660; 94760; A4216; C1769; G8978-GP-CK; G8978-GP-CM; G8979-GP-CJ; G8987-GO-CL; G8988-GO-CJ; G8996-GN-CL; G8997-GN-CI; J0171; J0282; J0360; J0461; J0696; J1160; J1265; J1450; J1642; J1644; J1650; J1815; J1885; J2001; J2060; J2150; J2250; J2405; J2704; J2720; J3010; J3370; J3475; J3480; J7050; J7070; J7620; P9016; P9045; Q2009; S0017; S0028

== ENCOUNTER 2017-05-28 14:32 | Inpatient (IN) | payer MEDICARE ==
[2017-05-28] MEDS ORDERED: Furosemide 40 MG/4 ML VIAL ONE (14:50)
--- NOTE | 2017-05-28 14:59 | RAD ---
CHEST ONE VIEW: History: Dyspnea. Comparison: 05-01-17 FINDINGS: Cardiac silhouette and magnified, enlarged, and partially obscured by left pleural fluid and left bas ilar infiltrate. Small amount of right pleural fluid and basilar atelectasis are also present. Medias tinum is midline with post-operative changes. Pulmonary vasculature is engorged. No evidence of pneum othorax. IMPRESSION: Bilateral pleural fluid, left greater than right, with pulmonary vascular congestion. POS: [facility]
[2017-05-28] MEDS ORDERED: Ondansetron HCl/PF 4 MG/2 ML Vial ONE (15:02)
[2017-05-28 15:10] LABS: #Eosinphils 0.1 thou/uL (0.0-0.7); #Lymphocytes 0.5 thou/uL (1.20-3.40); #Monocytes 0.6 thou/uL (0.11-0.59); #Neutrophils 7.6 thou/uL (1.40-6.50); %Eosinophils 0.8 % (0.0-10.0); %Monocytes 7.2 % (0.0-10.0); Hemoglobin 6.9 g/dL (12.0-16.0); Mean Corpuscular HGB CONC 32.2 g/dL (32.0-36.0); Mean Corpuscular Hemoglobin 32.5 pg (27.0-31.0); Platelet Count 174 thou/uL (130-400); RBC Distribution Width 16.4 % (11.5-14.5); Red Blood Cell (RBC) Count 2.12 mill/uL (4.20-5.40); White Blood Cell (WBC) Count 8.8 thou/uL (4.8-10.8)
[2017-05-28 15:33] LABS: ALT (SGPT) 27 U/L (8-55); AST (SGOT) 33 U/L (5-34); Albumin 2.7 g/dL (3.4-4.8); Alkaline Phosphatase 115 U/L (40-150); Anion Gap 16 mmol/L (10-20); BUN (Urea Nitrogen) 44 mg/dL (9.8-20.1); Bilirubin, Total 0.4 mg/dL (0.2-1.2); CK (CPK) 123 U/L (29-168); Calc. Creatinine Clearance 0 mL/min (70-130); Calcium 8.3 mg/dL (7.8-10.44); Carbon Dioxide 27 mmol/L (23-31); Chloride 104 mmol/L (98-107); Estimated GFR-MDRD 32; Globulin 2.3 g/dL (2.4-3.5); Glucose 141 mg/dL (83-110); Potassium 3.5 mmol/L (3.5-5.1); Sodium 143 mmol/L (136-145)
[2017-05-28 15:38] LABS: CKMB 5.8 ng/mL (0-6.6); Troponin I 0.145 ng/mL (< 0.028)
[2017-05-28 15:38] LABS: PTT 43.1 SEC (22.9-36.1)
[2017-05-28 15:42] LABS: INR-International Normal Ratio 1.6; Prothrombin Time 19.9 SEC (12.0-14.7)
[2017-05-28] MEDS ORDERED: Lidocaine 1% PF 5 ML VIAL ONE ×2 (17:34→17:36)
[2017-05-28] MEDS ORDERED: Acetaminophen 325 MG TAB PO PRN (17:51)
[2017-05-28] MEDS ORDERED: Acetaminophen 650 MG Suppository PR PRN (17:51)
[2017-05-28] MEDS ORDERED: Bisacodyl 5 MG TAB PO PRN (17:51)
--- NOTE | 2017-05-28 18:01 | RAD ---
PORTABLE CHEST 05/28/17 PROVIDED CLINICAL HISTORY: Hypoxia. FINDINGS: Comparison is made with the examination performed earlier same date. There is development of conspicu ous left pleural gas which appears predominantly loculated at the inferior aspect of the left hemitho rax, with associated interval decrease in the degree of left pleural opacity, presumably reflecting r ecent thoracentesis. There is persistent pleural parenchymal opacity at the right lung base. Median s ternotomy changes are again seen. The cardiac and mediastinal silhouette is not definitely changed in appearance. IMPRESSION: Loculated pleural gas/pneumothorax at the inferior aspect of the left hemithorax presumably on the ba sis of recent thoracentesis. POS: [facility]
--- NOTE | 2017-05-28 19:24 | HP ---
PRIMARY CARE PHYSICIAN: Brett Blankenship M.D. ENGINEER DESIGN AND CONSTRUCTION: Hernan Sawant M.D. CARDIOTHORACIC SURGEON: Pablo Motta M.D. CHIEF COMPLAINT: Shortness of breath. HISTORY OF PRESENT ILLNESS: Ms. Ohara is a pleasant 87-year-old lady who was seen at [facility] on 05/28/2017. She was hospitalized at this facility from 04/21/2017 to 05/11/2017. During that admission, she had presented with chest pain. Cardiac catheterization showed coronary artery disease. She had coronary artery bypass graft on 04/24/2017. That stay was complicated by an episode of torsades following wh ich she required reintubation. She was discharged home on a LifeVest. Her family reports that since going home, she has had progressively worsening lower extremity edema. She also had shortness of breath. About 5 days ago, [facility] [employer] [facility] was contacted. She was st arted on Lasix 40 mg daily. The following day, her dose was increased to [address] Motta. She denies any blood in stool. She denies any black stools. She denies any nausea or vomiting. She denies any chest pain. She was brought to the emergency room because of ongoing shortness of breath . She also developed cough today that is productive of white sputum. She denies any fevers. REVIEW OF SYSTEMS: The following complete review of systems was negative, unless otherwise mentioned in the HPI or below: Constitutional: Weight loss or gain, ability to conduct usual activities. Skin: Rash, itching. Ey es: Double vision, pain. ENT/Mouth: Nose bleeding, neck stiffness, pain, tenderness. Cardiovascul ar: Palpitations, dyspnea on exertion, orthopnea. Respiratory: Shortness of breath, wheezing, coug h, hemoptysis, fever or night sweats. Gastrointestinal: Poor appetite, abdominal pain, heartburn, n ausea, vomiting, constipation, or diarrhea. Genitourinary: Urgency, frequency, dysuria, nocturia. Musculoskeletal: Pain, swelling. Neurologic/Psychiatric: Anxiety, depression. Allergy/Immunologic : Skin rash, bleeding tendency. PAST MEDICAL HISTORY: Significant for coronary artery disease, peripheral vascular disease, hyperten ercik, dyslipidemia, hypothyroidism, gastroesophageal reflux disease, nephrolithiasis. PAST SURGICAL HISTORY: Significant for stents for peripheral vascular disease, eye surgery, angiopla sties, rotator cuff surgery, bilateral carotid endarterectomy and coronary artery bypass graft. SOCIAL HISTORY: The patient denies tobacco use, alcohol use or recreational drug use. FAMILY HISTORY: Significant for coronary artery disease. CODE STATUS: I discussed her code status. Patient and family have not discussed code status before. They will discuss and let the staff know. They are aware that she is FULL CODE by default. ALLERGIES: No known drug allergies. CURRENT MEDICATIONS: Include amiodarone 200 mg daily, Norvasc 5 mg daily, Eliquis 2.5 mg 2 times a d ay, aspirin 81 mg daily, Lipitor 80 mg at bedtime, Nexium 20 mg daily, vitamin D3 and calcium daily, Zetia 10 mg at bedtime, levothyroxine 75 mcg daily, Bystolic 5 mg daily, and Benicar 20 mg at bedtime . PHYSICAL EXAMINATION: GENERAL: Mr. Ohara is awake and alert, not in acute distress. VITAL SIGNS: Blood pressure is 118/40, pulse is 50. She is breathing at rate of 23 and saturating 9 7% on 2 liters of oxygen. Her room air oxygen saturation is 87%. She is afebrile. EYES: No scleral icterus. Conjunctival pallor is present. ENT: Moist mucosal membranes, no oropharyngeal erythema or exudates. NECK: Supple, nontender, normal range of movement. Trachea is midline. RESPIRATORY: Accessory muscles of breathing are mildly active. Chest wall movements are symmetric b ilaterally. LUNGS: Reveals absent breath sounds at the left base. CARDIOVASCULAR: S1 and S2 are heard, regular. Peripheral pulses are palpable. No carotid bruit, no pericardial rub. ABDOMEN: Soft, nontender, bowel sounds heard, no hepatomegaly, no splenomegaly. MUSCULOSKELETAL: Power is 5/5 in all four extremities. She has bilateral lower extremity edema. SKIN: No rashes or subcutaneous nodules. She has cutaneous pallor. LYMPHATIC: No cervical lymphadenopathy. NEUROLOGIC: Cranial nerves II-XII are intact. Deep tendon reflexes are 2+. PSYCHIATRIC: The patient is awake, alert, normal mood, oriented to person and place. LABORATORY DATA: Ms. Ohara labs and investigations were reviewed. I reviewed her electrocardiogra m, which shows sinus bradycardia, no ST changes to suggest an acute coronary syndrome. I also review ed her chest x-ray, which shows a left pleural effusion. Laboratory investigation show a normal whit e count, macrocytic anemia with hemoglobin of 6.9, last known hemoglobin 9.5 on 05/11/2017, normal pl atelet count, INR 1.6, elevated D-dimer of 2.09, normal electrolytes, elevated blood urea nitrogen o f 44, elevated creatinine of 1.52, decreased albumin of 2.7, elevated BNP of 1330 and an indeterminat e troponin I of 0.145. ASSESSMENT AND PLAN: Ms. Ohara is a pleasant 87-year-old lady who was seen at [facility] on 05/28/2017. Her problem list includes: 1. Shortness of breath: Most likely secondary to left pleural effusion. Patient will be admitted t o the [facility] for further management. She will be monitored on telemetry. 2. Pleural effusion: Most likely sequelae of coronary artery bypass graft surgery. Pulmonology and Cardiovascular Surgery services have already been consulted by the emergency room physician. Plan i s for thoracentesis. We will await thoracentesis. 3. Anemia: Patient appears to have symptomatic anemia. The emergency room physician has done at [facility] stool occult blood test, which was negative. She has also ordered a fecal occult blood test. We will await result. Family reports that patient had difficulty with anticoagulation in the past se condary to bleed. 4. Hypertension. Monitor vital signs, titrate antihypertensives as needed. 5. Coronary artery disease, status post coronary artery bypass graft surgery. We will consult [facility] for ongoing management. 6. Dyslipidemia: Continue statins. 7. Acute kidney injury: Her last known creatinine was 0.88 on 05/11/2017. She has a creatinine of 1.52 today. Follow creatinine and electrolytes, especially since she is receiving diuretics. Many thanks for allowing me to participate in your patient's care. Please feel free to contact me wi th any questions or concerns. LEVEL OF RISK: High. LEVEL OF COMPLEXITY: High.
[2017-05-28 19:35] LABS: Fluid, Triglycerides 11 mg/dL (Not Available); Pleural Fluid, Amylase Less than 30 U/L (Not Available); Pleural Fluid, Glucose 120 mg/dL; Pleural Fluid, LDH 141 U/L (Not Available); Pleural Fluid, Protein 1.1 g/dL
[2017-05-28 20:00] LABS: BF Color Yellow; BF WBC/Nonhematics Ct. - Manua 89 /cumm; Body Fluid Source PLEURAL FLUID; Clarity Clear (Clear); Tube # EDTA
[2017-05-28 20:01] LABS: BF RBC Count - Manual 351 /cumm
[2017-05-28 20:23] LABS: BF Segmented Neutrophils 27 %; Cell Count Non Hematic 31 %; Lymphocytes 42 %
[2017-05-28] MEDS ORDERED: Apixaban 5 MG TAB PO SCH (23:45)
[2017-05-28] MEDS ORDERED: Latanoprost 0.005% Ophth Soln 2.5 ml Bottle EA EYE SCH (23:45)
[2017-05-28] MEDS ORDERED: Ubidecarenone 50 MG CAP PO SCH (23:45)
[2017-05-29] MEDS: Amiodarone 200 MG TAB PO SCH ×2 (00:02→21:41)
[2017-05-29] MEDS ORDERED: Atorvastatin Calcium 40 MG TAB PO SCH (00:05)
[2017-05-29] MEDS ORDERED: Ezetimibe 10 MG TAB PO SCH (00:05)
[2017-05-29] MEDS: Ondansetron ODT 4 MG TAB SL PRN ×2 (01:00→15:50)
[2017-05-29 05:45] LABS: Anion Gap 15 mmol/L (10-20); BUN (Urea Nitrogen) 44 mg/dL (9.8-20.1); Calc. Creatinine Clearance 23 mL/min (70-130); Calcium 8.3 mg/dL (7.8-10.44); Carbon Dioxide 29 mmol/L (23-31); Chloride 107 mmol/L (98-107); Estimated GFR-MDRD 36; Glucose 91 mg/dL (83-110); Potassium 3.9 mmol/L (3.5-5.1); Sodium 147 mmol/L (136-145)
[2017-05-29 05:53] LABS: Anisocytosis SLIGHT = 6-15 cells (100X) (0-5/hpf); Band 7 % (5-11); Lymphocytes 4 % (21-51); MDiff Complete? YES; Mean Corpuscular HGB CONC 31.8 g/dL (32.0-36.0); Mean Corpuscular Volume 97.4 fl (81.0-99.0); Mean Platelet Volume 8.2 fL (7.4-10.4); Metamyelocyte 1 % (0-0); Monocytes 3 % (0-10); Neutrophil 85 % (42-75); PLT Morphology Comment Appears Adequate; Platelet Count 156 thou/uL (130-400); RBC Distribution Width 16.5 % (11.5-14.5); Red Blood Cell (RBC) Count 2.58 mill/uL (4.20-5.40); White Blood Cell (WBC) Count 7.4 thou/uL (4.8-10.8)
[2017-05-29] MEDS: Levothyroxine Sodium 75 MCG TAB PO SCH (06:23)
--- NOTE | 2017-05-29 06:23 | CON ---
DATE OF CONSULTATION: 05/28/2017 Chantel Ohara is an 87-year-old female, who was recently discharged from the hospital after she had a coronary artery bypass graft surgery. Her postop complicated by torsades, hematoma on the rectus s guero, hypothyroidism, hypertension and respiratory failure. She now presents with increasing shortness of breath. X-ray shows now increasing left-sided pleural effusion. She denies chest pain, fever or chills. Several family members at the bedside. Patient has dementia as per the previous note. Medicine from home includes CQ10, several different eyedrops, Bystolic 5, magnesium, Synthroid 75, Ze tia 10, Nexium 20, Eliquis 2.5, amlodipine 5, amiodarone 20 twice a day. Remote history of tobacco abuse. PAST MEDICAL HISTORY: Previous TIA, peripheral vascular disease, dementia. PAST SURGICAL HISTORY: Carotid surgery and recent bypass. ALLERGIES: Otherwise unremarkable. PHYSICAL EXAMINATION: VITAL SIGNS: Sats were 94% on room air, blood pressure 100/80, respirations 18. CHEST: Decreased breath sounds in the right lung. Left lung unremarkable. CARDIAC: Normal S1, S2. ABDOMEN: Soft, no masses. LABORATORY DATA: White count 8000, H&H low at 6.9 and 21, platelet count 174. INR is 1.6. D-dimer is 2.9, creatinine 1.52, previous level BNP is 1330. IMPRESSION: Left pleural effusion, probably postoperative renal failure with dementia, cardiac arrhy thmias, respiratory failure. A thoracentesis will be performed, further recommendations after above. Family understands. PROCEDURE NOTE: Thoracentesis, left side. After sitting upright in bed, the left posterior thorax w as cleaned with chlorhexidine, 1% Xylocaine was infiltrated into the left ninth intercostal space all the way to the pleural, and the pleural cavity was entered. Initially about 20 mL of relatively pal e yellow fluid was removed. Thereafter, using an 8 [place] catheter, 650 mL was removed without diffi culty. Chest x-ray post-procedure shows that the left lower lung has not expanded completely. There is a lo culated pneumothorax. Pleural effusion sent for appropriate studies for cytology and culture. IMPRESSION: 1. Left pleural effusion. 2. Recent coronary artery bypass grafting. 3. Dementia. 4. Anemia. 5. Cardiac arrhythmias. She will be admitted to the hospital. We will repeat chest x-ray in the morning. Discuss with Dr. Joanne canrtell. In the meantime, continue previous home medication, transfuse as needed. Incidentally, her oxygen sa turations 100%, post procedure. We will follow.
--- NOTE | 2017-05-29 08:44 | RAD ---
CHEST 1 VIEWS: Date: 05/29/17 HISTORY: Dyspnea. Follow-up. COMPARISON: 05/28/17. FINDINGS: Cardiac silhouette remains magnified and enlarged. Atelectasis of the left upper lobe with some retra ction and increase in left pleural space gas has worsened slightly since the prior study. Small amoun t of left pleural fluid is suspected. Right lung remains hyperinflated. Mediastinum is midline with p ostoperative changes and aortic calcification. Osseous structures are demineralized. IMPRESSION: 1. Slight interval increase in left hydropneumothorax. 2. Other findings are stable. POS: [facility]
[2017-05-29] MEDS ORDERED: Apixaban 5 MG TAB PO SCH (09:00)
[2017-05-29] MEDS ORDERED: Furosemide 20 MG/2 ML VIAL SLOW IVP SCH (09:00)
[2017-05-29] MEDS ORDERED: Amlodipine 5 MG TAB PO SCH (09:00)
--- NOTE | 2017-05-29 09:59 | PDOC.PN ---
- Subjective Encounter Start Date: 05/29/17 Encounter Start Time: 12:00 Subjective: No changes overnight. No chest pain. No SOB. Patient demented. - Objective MAR Reviewed: Yes Vital Signs & Weight: Vital Signs (12 hours) Temp Pulse Pulse Resp BP BP Pulse Ox 05/29/17 01:30 98 F 57 L 18 137/63 93 L 05/29/17 00:00 97.8 F 56 L 18 129/70 93 L 05/28/17 22:30 98 F 58 L 18 110/67 92 L Weight Admit Weight 112 lb Weight 111 lb I&O: 05/28/17 05/29/17 05/30/17 06:59 06:59 06:59 Intake Total 480 Output Total 600 Balance -120 Result Diagrams: 05/29/17 04:52 05/29/17 04:52 Phys Exam - Physical Examination Constitutional: NAD HEENT: moist MMs Respiratory: no wheezing, no rhonchi rales in bases, L>R Cardiovascular: RRR Gastrointestinal: soft, positive bowel sounds Musculoskeletal: edema present left foot and leg a bit more swollen and red than right, not severe Neurological: non-focal, moves all 4 limbs Psychiatric: normal affect Dx/Plan (1) Acute on chronic systolic (congestive) heart failure Code(s): I50.23 - ACUTE ON CHRONIC SYSTOLIC (CONGESTIVE) HEART FAILURE Status : Acute Comment: EF 35-40% after code last hospitalization, BNP now markedly elevated from normal last month, IV diuresis, Cardiology (2) Pleural effusion, left Code(s): J90 - PLEURAL EFFUSION, NOT ELSEWHERE CLASSIFIED Status: Acute Comment: CT surgery consulted, planned thoracentesis if necessary (3) Macrocytic anemia Code(s): D53.9 - NUTRITIONAL ANEMIA, UNSPECIFIED Status: Acute Comment: Improved after transfusion, check Vit B12 (4) CAD (coronary artery disease) Code(s): I25.10 - ATHSCL HEART DISEASE OF [place] CORONARY ARTERY W/O ANG PCTRS Status: Chronic Qualifiers: Comment: s/p cabg on 04/24 (5) HTN (hypertension) Code(s): I10 - ESSENTIAL (PRIMARY) HYPERTENSION Status: Chronic Qualifiers: Comment: labile (6) Hyperlipidemia Code(s): E78.5 - HYPERLIPIDEMIA, UNSPECIFIED Status: Chronic (7) Acute kidney failure Status: Acute Comment: ? cardiorenal sydrome vs. diuretic effect, monitor closely with diuresis - Plan cont current plan of care, PT/OT, DVT proph w/SCDs * . - Discharge Day Encounter end time: 12:20
[2017-05-29] MEDS: Nebivolol HCl 5 MG TAB PO SCH (10:22)
[2017-05-29] MEDS: Aspirin 81 mg Enteric Coated Tablet PO SCH (10:25)
[2017-05-29] MEDS: Magnesium Oxide 400 MG TAB PO SCH (10:25)
--- NOTE | 2017-05-29 12:48 | PRG ---
DATE OF SERVICE: 05/29/2017 SUBJECTIVE: Ms. Chantel Ohara is doing well this morning, less short of breath. OBJECTIVE: VITAL SIGNS: Blood pressure is 137/60, sats are 93 on 3 liters, temperature 98, respiration 18. CHEST: Decreased breath sounds with rhonchi and crackles in left lung. CARDIAC: Normal S1, S2. No gallops. ABDOMEN: Soft. No masses. IMPRESSION: 1. Left-sided pneumothorax. 2. Left pleural effusion. 3. Chronic obstructive pulmonary disease. 4. Congestive heart failure. PLAN: Continue supportive care. We will discuss with Dr. Motta regarding inserting a small-bore jelena st tube.
--- NOTE | 2017-05-29 12:52 | CON ---
DATE OF CONSULTATION: 05/29/2017 REASON FOR CONSULTATION: Evaluate patient with left pneumothorax. HISTORY OF PRESENT ILLNESS: Ms. Ohara is an 87-year-old woman who underwent coronary artery bypass grafting and had an extended stay afterwards. She has severe dementia and hearing loss. She is very difficult to communicate with and most of the communication happens to her . She had an x-ray in the Emergency Department for shortness of breath yesterday showing a left-sided pleural effusion. Dr. Pelayo did thoracentesis. Her left lower lobe was compressed and did not immediately reexpand. This morning, the chest x-ray is essentially unchanged. She is resting comfortably without shortness of breath. PAST MEDICAL HISTORY: 1. History of previous TIA. 2. Peripheral vascular disease. 3. Dementia. 4. Hearing loss. 5. Coronary artery disease. PAST SURGICAL HISTORY: 1. Carotid endarterectomy. 2. Coronary artery bypass grafting. ALLERGIES: None. SOCIAL HISTORY: As above. PHYSICAL EXAMINATION: GENERAL: This is a diminutive elderly woman resting comfortably in bed. VITAL SIGNS: Temperature is 96.9, pulse is 56 and regular, blood pressure 130/ 85, oxygen saturations are 100% on 3 liters nasal cannula. LUNGS: Clear bilaterally. HEART: Rhythm is regular. ABDOMEN: Soft and nontender. EXTREMITIES: No edema. X-RAY FINDINGS: Chest x-ray has been reviewed. ASSESSMENT AND PLAN: This is an unfortunate 87-year-old woman who I would prefer not to put a chest tube in. We do have the option of a small pneumovac type tube which may be adequate. For a regular chest tube, we would have to take her to the operating room for adequate control of pain and sedation with anesthesia assistance. She has severe dementia and really has no understanding of anything that is going on with her at all right now. I am going to start her on EZPap nebs and asked her have her cough, which she does do vigorously when I asked to. We can reevaluate her chest x-ray tomorrow morning and see if this has helped to reexpand this lower lobe. If not, we can certainly then discuss her situation with Dr Pelayo and plan for either pneumovac type tube or chest tube in the operating room tomorrow. ANNA
[2017-05-29] MEDS ORDERED: Furosemide 40 MG/4 ML VIAL SLOW IVP SCH (18:00)
--- NOTE | 2017-05-29 19:38 | PRG ---
DATE OF SERVICE: 05/29/2017 SUBJECTIVE: Ms. Ohara is doing somewhat better. Her breathing is improved. PHYSICAL EXAMINATION: VITAL SIGNS: Blood pressure 119/59, pulse 60. LUNGS: Clear of any rales, but she has some rhonchi and some decreased breath sounds on the left. CARDIAC: Normal S1, normal S2. EXTREMITIES: There is moderate edema. LABORATORY DATA: Reveals she was severely anemic with initial hemoglobin of 6.9. The patient is in sinus rhythm. ASSESSMENT: 1. Status post bypass surgery. 2. Severe anemia. 3. Atrial fibrillation early postoperatively. 4. Diastolic congestive heart failure. 5. Takotsubo cardiomyopathy with subsequent improvement of left ventricular function. PLAN: 1. We will stop the anticoagulant at this point. 2. Continue diuretics. 3. Reduce amlodipine. 4. Check iron levels tomorrow, may need the intravenous iron. We will follow with you. ANNA
[2017-05-29] MEDS: Atorvastatin Calcium 40 MG TAB PO SCH (21:43)
[2017-05-29] MEDS: Ezetimibe 10 MG TAB PO SCH (21:43)
[2017-05-29] MEDS: Latanoprost 0.005% Ophth Soln 2.5 ml Bottle EA EYE SCH (21:45)
[2017-05-29] MEDS: Ubidecarenone 50 MG CAP PO SCH (21:45)
[2017-05-30] MEDS ORDERED: Atropine Sulfate 1 mg/10 ml Syringe ONE (03:30)
[2017-05-30] MEDS ORDERED: methylPREDNISolone Sod Succ/PF 125 MG/2 ML VIAL IVP SCH (03:30)
--- NOTE | 2017-05-30 04:25 | PRG ---
DATE OF SERVICE: 05/30/2017 SUBJECTIVE: Sabine rosenbaum was called because patient became suddenly bradycardic and unresponsive. Ivonne ent was seen immediately at bedside. Patient was having hypoxic respiratory failure. Her oxygen sat uration was in 70s-80s. She was lethargic. Her bradycardia rapidly improved to pulse in 50s to 60s. Her is present at bedside. Patient was getting Ambu bag breathing. Bedside EKG done, ches t x-ray done. OBJECTIVE: VITAL SIGNS: Pulse 50s, respiratory rate 16, saturation 83% on nonrebreather, blood pressure 100/50s , weight 111 pounds. GENERAL: Initially, patient was less responsive, lethargic, but by the end of treatment, patient was arousable, but still disoriented and confused. HEAD: Normocephalic, atraumatic. EYES: Pupils round, reactive to light. ENT: Oropharynx within normal limits. Moist mucous membranes. NECK: Supple, no JVD. LUNGS: Bilateral end expiratory wheezing and rhonchi heard. No rales. CARDIAC: S1, S2 were present, bradycardia. No murmur elicited. Chest wall, previous CABG scar note d. ABDOMEN: Soft and benign. EXTREMITIES: No edema. NEUROLOGIC: Unable to assess at this point. SIGNIFICANT LABORATORY DATA: WBC 7.4, hemoglobin 8.0, platelets 156. INR 1.6. Sodium 147, creatini ne 1.39. Liver enzymes normal. BNP 1330. Troponin I 0.145, vitamin B12 of 598. Pleural fluid WBC 89 and RBC 351. Chest x-ray reviewed, unchanged from earlier today. EKG sinus bradycardia, low voltage QRS complex. ASSESSMENT AND PLAN: 1. Acute hypoxic respiratory failure. Patient required Ambu bag breathing bedside. Lengthy discuss ion done with her and he expressed that he does not want to be intubated. He does not want t o be transferred to CCU for BiPAP. He decided to make her comfortable. CODE STATUS changed from FUL L CODE to DNR. We are going to continue oxygen high flow to keep comfortable and saturation, tried t o keep normal. We will give her DuoNeb therapy, Solu-Medrol 460 mg IV. We will give her Lasix if bl ood pressure permits. 2. Left hydropneumothorax, currently chest x-ray repeated and reviewed is stable. Patient already h ad thoracentesis done. 3. Acute on chronic diastolic congestive heart failure. We will try to give her dose of Lasix to he lp with possible fluid overload status. CODE STATUS: As mentioned above. Code status changed to DNR status. DISPOSITION: We will keep this patient on the floor. We will provide comfort care. Prognosis is ve ry poor. I spoke with the patient's daughter as well and she also agreed to make her comfortable. C ode blue was terminated and patient kept in her room. Total time spent providing critical care to this patient more than 30 minutes.
[2017-05-30 05:52] LABS: Chloride 108 mmol/L (98-107); Sodium 148 mmol/L (136-145)
[2017-05-30 05:53] LABS: Anion Gap 14 mmol/L (10-20); BUN (Urea Nitrogen) 50 mg/dL (9.8-20.1); Calc. Creatinine Clearance 19 mL/min (70-130); Calcium 8.1 mg/dL (7.8-10.44); Carbon Dioxide 30 mmol/L (23-31); Estimated GFR-MDRD 29; Glucose 150 mg/dL (83-110); Iron 35 ug/dL (50-170); Iron Binding Capacity, Total 210 mcg/dL (265-497)
[2017-05-30 05:56] LABS: Band 31 % (5-11); Hemoglobin 7.1 g/dL (12.0-16.0); Lymphocytes 4 % (21-51); MDiff Complete? YES; Mean Corpuscular HGB CONC 31.9 g/dL (32.0-36.0); Mean Corpuscular Hemoglobin 31.6 pg (27.0-31.0); Mean Corpuscular Volume 98.9 fl (81.0-99.0); Neutrophil 65 % (42-75); PLT Morphology Comment Appears Adequate; Platelet Count 179 thou/uL (130-400); RBC Distribution Width 16.5 % (11.5-14.5); Red Blood Cell (RBC) Count 2.25 mill/uL (4.20-5.40); White Blood Cell (WBC) Count 20.7 thou/uL (4.8-10.8)
[2017-05-30 05:57] LABS: CKMB 5.1 ng/mL (0-6.6); Troponin I 0.125 ng/mL (< 0.028)
[2017-05-30] MEDS ORDERED: Furosemide 40 MG/4 ML VIAL SLOW IVP SCH (06:00)
[2017-05-30] MEDS: Levothyroxine Sodium 75 MCG TAB PO SCH (06:39)
[2017-05-30] MEDS: Budesonide 0.5 MG/2 ML NEB INH SCH ×2 (07:31→18:52)
--- NOTE | 2017-05-30 08:09 | RAD ---
CHEST 1 VIEW: Date: 05/30/17 HISTORY: Evaluate for pneumothorax. COMPARISON: Chest 1 view from prior day. FINDINGS: Left hydropneumothorax is increasing in size. There is consolidation of the lingula and left upper lo be, as well as new opacities in the right lower lobe. There is tortuosity of the aorta. IMPRESSION: 1. Mild size increase of left hydropneumothorax. 2. New air space opacity right lower lobe concerning for infection. 3. Interstitial prominence in right lower lobe may reflect superimposed edema. POS: [facility]
--- NOTE | 2017-05-30 10:30 | RAD ---
AP CHEST: Indication: Status post thoracentesis. FINDINGS: Since the most recent comparison dated 05-30-17 at 3:33 a.m., there has been placement of a left sided thoracostomy tube. Left sided pneumothorax is no longer present. Small left pleural effusion remains . Cardiomegaly and right infrahilar opacities persist. Chronic lung changes are similar. Osseous stru ctures are unchanged. IMPRESSION: 1. Resolution of previously seen left sided pneumothorax. 2. Persistent bilateral pleural effusions, left greater than right. 3. Persistent bilateral infrahilar airspace opacities and cardiomegaly. Continued follow up is recomm ended. POS: [facility]
[2017-05-30] MEDS: Ondansetron ODT 4 MG TAB SL PRN (10:43)
--- NOTE | 2017-05-30 12:01 | OP ---
DATE OF PROCEDURE: 05/30/2017 SURGEON: Dr. Deshawn Pelayo PROCEDURE: Insertion of a small bore chest tube with a Heimlich valve. PROCEDURE IN DEETAIL: After informed consent, the left posterior axillary area was sterilely cleaned with chlorhexidine, 1% Xylocaine infiltrated into the intercostal space in the midscapular area and a small bore chest tube was inserted and connected to a Heimlich valve. It was removed. Valve was f luctuating. A chest x-ray taken shortly after the procedure showed the lung to be completely inflate d. Unfortunately, there was a large volume of sanguineous fluid coming out of the small bore chest t ube. Therefore, it was connected to a Pleurovac. The patient tolerated the procedure well. Continue present suction. Hopefully, the lung remains inflated and the chest tube can be removed in the next 24-48 hours.
--- NOTE | 2017-05-30 15:59 | PRG ---
DATE OF SERVICE: 05/30/2017 SUBJECTIVE: Ms. Ohara had to have a chest tube placed last night. She feels better following that . OBJECTIVE: VITAL SIGNS: Blood pressure 121/55, pulse 100. LUNGS: Rhonchi. CARDIAC: Normal S1, normal S2. ABDOMEN: Soft, nontender. EXTREMITIES: No edema. LABORATORY DATA: Hemoglobin is 7.1. ASSESSMENT: 1. Diastolic heart failure. 2. Anemia. 3. Paroxysmal atrial fibrillation, maintaining sinus rhythm. PLAN: 1. Apixaban was discontinued due to the continued anemia. 2. Patient is on oral furosemide. 3. Chest tube in place. 4. We will repeat echocardiogram.
--- NOTE | 2017-05-30 17:22 | PRG ---
DATE OF SERVICE: 05/30/2017 SUBJECTIVE: Actually, she was a left-sided pneumothorax. OBJECTIVE: VITAL SIGNS: Sats are 100% on 4 liters, temperature 97, blood pressure 100/50. LUNGS: She has had difficulty breathing. She has extensive rhonchi and crackles in left lung. CARDIAC: Normal S1, S2. No gallops. ABDOMEN: Soft. No masses. LABORATORY DATA: White count 20,000, H&H is 7 and 21, platelet count is normal. Electrolytes are no rmal. Creatinine 1.68. BUN is 50. IMPRESSION: 1. Left-sided pneumothorax. 2. Pleural effusion. 3. transudate. PLAN: We are going to insert a small bore chest tube to reinflate the lung. Further recommendations after above. In the meantime, we will continue cardiac care, neb treatments, supportive care. We will follow.
[2017-05-30] MEDS: Nebivolol HCl 5 MG TAB PO SCH (17:26)
[2017-05-30] MEDS: Magnesium Oxide 400 MG TAB PO SCH (17:26)
[2017-05-30] MEDS: Amlodipine 5 MG TAB PO SCH (17:26)
[2017-05-30] MEDS: Aspirin 81 mg Enteric Coated Tablet PO SCH (17:26)
--- NOTE | 2017-05-30 17:41 | PDOC.PN ---
- Subjective Encounter Start Date: 05/30/17 Encounter Start Time: 07:20 Pt seen for followup re: acute respiratory failure. Overnight events noted. Pt denies chest pain. - Objective Resuscitation Status: Resuscitation Status DNR:Do Not Resuscitate MAR Reviewed: Yes Vital Signs & Weight: Vital Signs (12 hours) Temp Pulse Resp BP Pulse Ox 05/30/17 17:26 100 05/30/17 16:00 97.4 F L 100 19 112/57 L 93 L 05/30/17 14:05 94 L 05/30/17 14:04 103 H 16 05/30/17 12:00 97.2 F L 62 18 121/55 L 94 L 05/30/17 08:24 100 05/30/17 08:00 97.6 F 66 19 100/50 L 100 05/30/17 07:33 100 05/30/17 07:31 63 24 H Weight Admit Weight 112 lb Weight 111 lb I&O: 05/29/17 05/30/17 05/31/17 06:59 06:59 06:59 Intake Total 480 600 50 Output Total 600 300 350 Balance -120 300 -300 Result Diagrams: 05/30/17 05:17 05/30/17 05:17 Additional Labs: Accuchecks 05/30/17 03:14 POC Glucose 218 H EKG Reviewed by me: Yes (Tele: NSR) Phys Exam - Physical Examination Constitutional: NAD HEENT: moist MMs Neck: supple Diminished air entry L base Cardiovascular: RRR Gastrointestinal: soft Neurological: moves all 4 limbs Psychiatric: normal affect Skin: no rash Dx/Plan (1) Acute respiratory failure Code(s): J96.00 - ACUTE RESPIRATORY FAILURE, UNSP W HYPOXIA OR HYPERCAPNIA Status: Acute Comment: Extubated (2) Pleural effusion, left Code(s): J90 - PLEURAL EFFUSION, NOT ELSEWHERE CLASSIFIED Status: Acute Comment: CT surgery consulted, planned thoracentesis if necessary (3) CAD (coronary artery disease) Code(s): I25.10 - ATHSCL HEART DISEASE OF [place] CORONARY ARTERY W/O ANG PCTRS Status: Chronic Qualifiers: Comment: s/p cabg on 04/24 (4) HTN (hypertension) Code(s): I10 - ESSENTIAL (PRIMARY) HYPERTENSION Status: Chronic Qualifiers: Comment: labile (5) Hyperlipidemia Code(s): E78.5 - HYPERLIPIDEMIA, UNSPECIFIED Status: Chronic (6) Hypothyroid Code(s): E03.9 - HYPOTHYROIDISM, UNSPECIFIED Status: Chronic (7) PVD (peripheral vascular disease) Code(s): I73.9 - PERIPHERAL VASCULAR DISEASE, UNSPECIFIED Status: Chronic - Plan plan discussed w/ family, PT/OT, out of bed/ambulate * . For chest tube. Continue apixaban. Consult palliative care. Review of Systems - Review of Systems Constitutional: negative: fever, chills, sweats, weakness, malaise Respiratory: Cough, SOB with Excertion. negative: Dry, Shortness of Breath, Hemoptysis, Pleuritic Pain, Sputum, Wheezing - Medications/Allergies Allergies/Adverse Reactions: Allergies Allergy/AdvReac Type Severity Reaction Status Date / Time No Known Allergies Allergy Verified 05/28/17 22:52 Medications: Current Medications Acetaminophen (Tylenol) 650 mg PO Q4H PRN PRN Reason: Headache/Fever or Pain Acetaminophen (Tylenol) 650 mg [place] Q4H PRN PRN Reason: Headache/Fever or Pain Albuterol/Ipratropium (Duoneb) 3 ml EZPAP [id number] [facility] Last Admin: 05/30/17 14:04 Dose: 3 ml Amiodarone HCl (Cordarone) 200 mg PO [facility] Last Admin: 05/29/17 21:41 Dose: 200 mg Amlodipine Besylate (Norvasc) 2.5 mg PO DAILY [facility] Last Admin: 05/30/17 17:26 Dose: Not Given Aspirin (Ecotrin) 81 mg PO DAILY [facility] Last Admin: 05/30/17 17:26 Dose: Not Given Atorvastatin Calcium (Lipitor) 80 mg PO [facility] Last Admin: 05/29/17 21:43 Dose: Not Given Bisacodyl (Dulcolax) 10 mg PO DAILYPRN PRN PRN Reason: Constipation Budesonide (Pulmicort Neb Solution) 0.5 mg INH BID-RT [facility] Last Admin: 05/30/17 07:31 Dose: 0.5 mg Coenzyme Q10 (Coenzyme Q10) 100 mg PO [facility] Last Admin: 05/29/17 21:45 Dose: Not Given Ezetimibe (Zetia) 10 mg PO [facility] Last Admin: 05/29/17 21:43 Dose: Not Given Furosemide (Lasix) 40 mg PO DAILY-AC [facility] Cefepime HCl 1 gm/Miscellaneous Medication 1 each/ Sterile Water 10 mls @ 120 mls/hr SLOW IVP Q12HR [facility] Latanoprost (Xalatan 0.005% Oph Soln) 1 drop EA EYE QPM [facility] Last Admin: 05/29/17 21:45 Dose: Not Given Levothyroxine Sodium (Synthroid) 75 mcg PO 0600 [facility] Last Admin: 05/30/17 06:39 Dose: Not Given Magnesium Oxide (Magnesium Oxide) 400 mg PO DAILY [facility] Last Admin: 05/30/17 17:26 Dose: Not Given Methylprednisolone Sodium Succinate (Solu-Medrol) 40 mg IVP Q6HR [facility] Last Admin: 05/30/17 12:00 Dose: 40 mg Nebivolol (Bystolic) 5 mg PO DAILY [facility] Last Admin: 05/30/17 17:26 Dose: Not Given Olmesartan (Benicar) 20 mg PO HS [facility] Last Admin: 05/29/17 21:44 Dose: Not Given Ondansetron HCl (Zofran Odt) 4 mg SL Q6H PRN PRN Reason: Nausea/Vomiting Last Admin: 05/30/17 10:43 Dose: 4 mg Pantoprazole Sodium (Protonix) 40 mg PO DAILY [facility] Last Admin: 05/30/17 17:26 Dose: Not Given Sodium Chloride (Flush - Normal Saline) 10 ml IVF PRN PRN PRN Reason: Saline Flush
[2017-05-30] MEDS ORDERED: Cefepime 1 GM in Sodium Chloride 0.9% 100 ML IVPB SCH (21:00)
[2017-05-30] MEDS: Cefepime 1 GM, Admixture Fee 1 EACH in Sterile Water 10 ML SLOW IVP SCH (21:03)
[2017-05-30] MEDS: Amiodarone 200 MG TAB PO SCH (21:04)
[2017-05-30] MEDS: Atorvastatin Calcium 40 MG TAB PO SCH (21:04)
[2017-05-30] MEDS: Ezetimibe 10 MG TAB PO SCH (21:04)
[2017-05-30] MEDS: Latanoprost 0.005% Ophth Soln 2.5 ml Bottle EA EYE SCH (21:04)
[2017-05-30] MEDS: Ubidecarenone 50 MG CAP PO SCH (21:05)
[2017-05-31] MEDS: Levothyroxine Sodium 75 MCG TAB PO SCH (05:05)
[2017-05-31 05:48] LABS: Anion Gap 12 mmol/L (10-20); BUN (Urea Nitrogen) 55 mg/dL (9.8-20.1); Calc. Creatinine Clearance 20 mL/min (70-130); Carbon Dioxide 31 mmol/L (23-31); Chloride 107 mmol/L (98-107); Estimated GFR-MDRD 30; Glucose 122 mg/dL (83-110); Potassium 3.5 mmol/L (3.5-5.1); Sodium 146 mmol/L (136-145)
[2017-05-31 05:57] LABS: #Lymphocytes 0.2 thou/uL (1.20-3.40); #Monocytes 0.3 thou/uL (0.11-0.59); #Neutrophils 16.2 thou/uL (1.40-6.50); %Basophils 0.1 % (0.0-1.0); %Eosinophils 0.1 % (0.0-10.0); %Lymphocytes 1.4 % (21.0-51.0); %Monocytes 2.1 % (0.0-10.0); %Neutrophils 96.4 % (42.0-75.0); Hemoglobin 6.9 g/dL (12.0-16.0); Mean Corpuscular Hemoglobin 32.5 pg (27.0-31.0); Mean Corpuscular Volume 98.6 fl (81.0-99.0); Mean Platelet Volume 8.2 fL (7.4-10.4); Platelet Count 189 thou/uL (130-400); RBC Distribution Width 16.4 % (11.5-14.5); Red Blood Cell (RBC) Count 2.13 mill/uL (4.20-5.40); White Blood Cell (WBC) Count 16.8 thou/uL (4.8-10.8)
[2017-05-31] MEDS: Budesonide 0.5 MG/2 ML NEB INH SCH ×2 (08:21→19:03)
[2017-05-31] MEDS: Furosemide 40 MG TAB PO SCH (08:43)
[2017-05-31] MEDS: Amlodipine 5 MG TAB PO SCH (09:54)
[2017-05-31] MEDS: Cefepime 1 GM, Admixture Fee 1 EACH in Sterile Water 10 ML SLOW IVP SCH ×2 (09:57→20:15)
[2017-05-31] MEDS: Nebivolol HCl 5 MG TAB PO SCH (09:57)
[2017-05-31] MEDS: Magnesium Oxide 400 MG TAB PO SCH (09:58)
[2017-05-31] MEDS: Aspirin 81 mg Enteric Coated Tablet PO SCH (09:58)
[2017-05-31] MEDS ORDERED: Levothyroxine Sodium 75 MCG TAB PO SCH (11:00)
--- NOTE | 2017-05-31 12:28 | PDOC.PN ---
- Subjective Encounter Start Date: 05/31/17 Encounter Start Time: 07:40 Pt seen for followup re: acute respiratory failure. Reports feeling better. - Objective Resuscitation Status: Resuscitation Status DNR:Do Not Resuscitate MAR Reviewed: Yes Vital Signs & Weight: Vital Signs (12 hours) Temp Pulse Resp BP Pulse Ox 05/31/17 08:42 97.9 F 105 H 18 111/53 L 92 L 05/31/17 08:21 92 L 05/31/17 08:16 103 H 20 05/31/17 03:45 115 H 22 H 137/75 93 L 05/31/17 00:37 65 18 99 Weight Admit Weight 112 lb Weight 112 lb 3.2 oz I&O: 05/30/17 05/31/17 06/01/17 06:59 06:59 06:59 Intake Total 600 110 Output Total 300 500 Balance 300 -390 Result Diagrams: 05/31/17 04:32 05/31/17 04:32 Additional Labs: Accuchecks 05/31/17 11:55 POC Glucose 197 H EKG Reviewed by me: Yes (tele: atrial flutter, NSR) Phys Exam - Physical Examination Constitutional: NAD HEENT: moist MMs Neck: supple Respiratory: clear to auscultation bilateral Cardiovascular: irregular Gastrointestinal: soft Neurological: moves all 4 limbs Psychiatric: normal affect Dx/Plan (1) Acute respiratory failure Code(s): J96.00 - ACUTE RESPIRATORY FAILURE, UNSP W HYPOXIA OR HYPERCAPNIA Status: Acute Comment: Extubated (2) Pleural effusion, left Code(s): J90 - PLEURAL EFFUSION, NOT ELSEWHERE CLASSIFIED Status: Acute Comment: CT surgery consulted, planned thoracentesis if necessary (3) CAD (coronary artery disease) Code(s): I25.10 - ATHSCL HEART DISEASE OF [place] CORONARY ARTERY W/O ANG PCTRS Status: Chronic Qualifiers: Comment: s/p cabg on 04/24 (4) HTN (hypertension) Code(s): I10 - ESSENTIAL (PRIMARY) HYPERTENSION Status: Chronic Qualifiers: Comment: labile (5) Hyperlipidemia Code(s): E78.5 - HYPERLIPIDEMIA, UNSPECIFIED Status: Chronic (6) Hypothyroid Code(s): E03.9 - HYPOTHYROIDISM, UNSPECIFIED Status: Chronic (7) PVD (peripheral vascular disease) Code(s): I73.9 - PERIPHERAL VASCULAR DISEASE, UNSPECIFIED Status: Chronic - Plan plan discussed w/ family * . Chest tube draining. Continue diuretics. Monitor on telemetry Review of Systems - Review of Systems Respiratory: Cough, Dry. negative: Shortness of Breath, Hemoptysis, SOB with Excertion, Pleuritic Pain, Sputum, Wheezing Cardiovascular: negative: chest pain, palpitations, orthopnea, paroxysmal nocturnal dyspnea, edema, light headedness - Medications/Allergies Allergies/Adverse Reactions: Allergies Allergy/AdvReac Type Severity Reaction Status Date / Time No Known Allergies Allergy Verified 05/28/17 22:52 Medications: Current Medications Acetaminophen (Tylenol) 650 mg PO Q4H PRN PRN Reason: Headache/Fever or Pain Acetaminophen (Tylenol) 650 mg [place] Q4H PRN PRN Reason: Headache/Fever or Pain Albuterol/Ipratropium (Duoneb) 3 ml EZPAP [id number] Last Admin: 05/31/17 08:16 Dose: 3 ml Amiodarone HCl (Cordarone) 200 mg PO [facility] Last Admin: 05/30/17 21:04 Dose: 200 mg Amlodipine Besylate (Norvasc) 2.5 mg PO DAILY [facility] Last Admin: 05/31/17 09:54 Dose: Not Given Aspirin (Ecotrin) 81 mg PO DAILY [facility] Last Admin: 05/31/17 09:58 Dose: Not Given Atorvastatin Calcium (Lipitor) 80 mg PO HS [facility] Last Admin: 05/30/17 21:04 Dose: Not Given Bisacodyl (Dulcolax) 10 mg PO DAILYPRN PRN PRN Reason: Constipation Budesonide (Pulmicort Neb Solution) 0.5 mg INH BID-RT [facility] Last Admin: 05/31/17 08:21 Dose: 0.5 mg Coenzyme Q10 (Coenzyme Q10) 100 mg PO HS [facility] Last Admin: 05/30/17 21:05 Dose: Not Given Ezetimibe (Zetia) 10 mg PO [facility] Last Admin: 05/30/17 21:04 Dose: Not Given Furosemide (Lasix) 40 mg PO DAILY-AC [facility] Last Admin: 05/31/17 08:43 Dose: 40 mg Cefepime HCl 1 gm/Miscellaneous Medication 1 each/ Sterile Water 10 mls @ 120 mls/hr SLOW IVP Q12HR [facility] Last Admin: 05/31/17 09:57 Dose: 10 mls Latanoprost (Xalatan 0.005% Ophth Soln) 1 drop EA EYE QPM [facility] Last Admin: 05/30/17 21:04 Dose: Not Given Levothyroxine Sodium (Synthroid) 75 mcg PO 0600 [facility] Magnesium Oxide (Magnesium Oxide) 400 mg PO DAILY [facility] Last Admin: 05/31/17 09:58 Dose: 400 mg Methylprednisolone Sodium Succinate (Solu-Medrol) 40 mg IVP Q6HR [facility] Last Admin: 05/31/17 05:16 Dose: 40 mg Nebivolol (Bystolic) 5 mg PO DAILY [facility] Last Admin: 05/31/17 09:57 Dose: 5 mg Olmesartan (Benicar) 20 mg PO HS [facility] Last Admin: 05/30/17 21:05 Dose: Not Given Ondansetron HCl (Zofran Odt) 4 mg SL Q6H PRN PRN Reason: Nausea/Vomiting Last Admin: 05/30/17 10:43 Dose: 4 mg Pantoprazole Sodium (Protonix) 40 mg PO DAILY [facility] Last Admin: 05/31/17 09:57 Dose: 40 mg Sodium Chloride (Flush - Normal Saline) 10 ml IVF PRN PRN PRN Reason: Saline Flush
--- NOTE | 2017-05-31 15:15 | PDOC.CTH ---
<Patsy Solitario - Last Filed: 05/31/17 15:12> Cardiology Progress Note - Subjective The pt seen and examined. No overnight events. No cardiac complaints. Still TAM with movement. - Objective Vital Signs Temp Pulse Resp BP Pulse Ox 05/31/17 14:10 64 20 05/31/17 12:55 97.6 F 66 24 H 115/53 L 92 L 05/31/17 08:42 97.9 F 105 H 18 111/53 L 92 L 05/31/17 08:30 97.6 F 66 24 H 05/31/17 08:21 92 L 05/31/17 08:16 103 H 20 05/31/17 03:45 115 H 22 H 137/75 93 L Admit Weight 112 lb Weight 112 lb 3.2 oz 05/30/17 05/31/17 06/01/17 06:59 06:59 06:59 Intake Total 600 110 Output Total 300 500 Balance 300 -390 - Physical Examination General/Neuro: alert & oriented x3 Neck: no JVD present Lungs: other: (very diminished at bases, Lt>Rt) Heart: RRR Abdomen: soft Extremities: other: (no edema) - Telemetry Telemetry Rhythm: SR 60s - Labs Result Diagrams: 05/31/17 04:32 05/31/17 04:32 Troponin/CKMB CK-MB (CK-2) 5.1 ng/mL (0-6.6) 05/30/17 05:16 Troponin I 0.125 ng/mL (< 0.028) H 05/30/17 05:16 - Assessment/Plan 1. Acute respiratory failure - stable with 4LNC; cont. monitor 2. Paroxysmal Afib - Converted back to SR @ 1000 today; on Amiodarone and ASA 81mg; Eliquis was d/connor due to Anemia 3. Lt Pleural effusion - with CT; managed by CT surgeon 4. CAD with HX of CABG on 04/24/18 - stable; on BBlocker, ASA, Statin; cont. monitor on tele 5. HTN - stable; cont. monitor 6. Hyperlipidemia - on Statin 7. Hypothyroidism - on Levothyroxin 8. PVD - stable MAR reviewed Review of Systems - Review of Systems Constitutional: reports: no symptoms reported EENTM: reports: no symptoms reported Respiratory: reports: see HPI Cardiac (ROS): reports: no symptoms reported ABD/GI: reports: no symptoms reported : reports: no symptoms reported Musculoskeletal: reports: no symptoms reported <Francisca Jett - Last Filed: 06/01/17 01:28> Cardiology Progress Note - Objective Vital Signs Temp Pulse Pulse Pulse Resp BP BP 06/01/17 00:55 71 96 H 05/31/17 23:49 05/31/17 20:00 97.7 F 81 20 05/31/17 19:02 65 22 H 05/31/17 16:05 98.9 F 72 18 05/31/17 15:25 73 71 110/51 L 109/48 L 05/31/17 14:10 64 20 BP Pulse Ox 06/01/17 00:55 91 L 05/31/17 23:49 113/51 L 93 L 05/31/17 20:00 105/49 L 92 L 05/31/17 19:02 92 L 05/31/17 16:05 139/61 94 L 05/31/17 15:25 05/31/17 14:10 Admit Weight 112 lb Weight 112 lb 3.2 oz 05/30/17 05/31/17 06/01/17 06:59 06:59 06:59 Intake Total 600 110 730 Output Total 300 500 680 Balance 300 -390 50 - Labs Result Diagrams: 05/31/17 04:32 05/31/17 04:32 Troponin/CKMB CK-MB (CK-2) 5.1 ng/mL (0-6.6) 05/30/17 05:16 Troponin I 0.125 ng/mL (< 0.028) H 05/30/17 05:16 - Assessment/Plan The pt. was seen and eval. by me. I agree with the A/P by the LOG DECK TENDER.
--- NOTE | 2017-05-31 15:33 | PRG ---
DATE OF SERVICE: 05/31/2017 SUBJECTIVE: Ms. Ohara is lying peacefully in bed, does not appear to be in any distress. Her fami ly is at the bedside. OBJECTIVE: VITAL SIGNS: Temperature is 97.6, pulse 66, respirations 24, O2 sat 92% on 4 liters and blood pressu re 115/53. HEENT: Unremarkable. NECK: No JVD. LUNGS: Diminished breath sounds at the left base. She has a chest tube on the left. She has had 20 0 mL of drainage yesterday. CARDIAC: S1 and S2 regular. ABDOMEN: Soft. EXTREMITIES: No edema. LABORATORY DATA: White blood cell count 16.8, hematocrit 21.0 and platelet count 189. Sodium 146, p otassium 3.5, chloride 107, CO2 of 31, BUN 55, creatinine 1.6 and glucose 122. ASSESSMENT: 1. Left pleural effusion. 2. Left pneumothorax. PLAN: 1. Continue pleural space drainage. 2. Continue conservative care otherwise. 3. Repeat chest x-ray tomorrow.
[2017-05-31] MEDS: Ondansetron ODT 4 MG TAB SL PRN (20:12)
[2017-05-31] MEDS: Atorvastatin Calcium 40 MG TAB PO SCH (20:13)
[2017-05-31] MEDS: Amiodarone 200 MG TAB PO SCH (20:13)
[2017-05-31] MEDS: Ubidecarenone 50 MG CAP PO SCH (20:13)
[2017-05-31] MEDS: Latanoprost 0.005% Ophth Soln 2.5 ml Bottle EA EYE SCH (20:15)
[2017-05-31] MEDS: Ezetimibe 10 MG TAB PO SCH (20:15)
[2017-06-01] MEDS: Levothyroxine Sodium 75 MCG TAB PO SCH (06:08)
[2017-06-01] MEDS: Ondansetron ODT 4 MG TAB SL PRN ×2 (07:02→16:07)
[2017-06-01] MEDS: Budesonide 0.5 MG/2 ML NEB INH SCH ×2 (08:30→19:28)
--- NOTE | 2017-06-01 08:58 | RAD ---
CHEST 1 VIEW: Date: 06/01/17 HISTORY: Chest tube. COMPARISON: Chest 1 view dated 05/30/17. FINDINGS: There has been retraction of the left thoracostomy tube. There is a small left basilar pneumothorax. Right lung has some atelectatic changes. Heart size is markedly enlarged. There is markedly new left- sided hemithorax subcutaneous emphysema. IMPRESSION: 1. Interval retraction of left thoracostomy tube with new subcutaneous emphysema. 2. Small left basilar pneumothorax. Yady, the nurse taking care of the patient, was notified of the findings via telephone at 0830 hour s. MAC MENDEZ. POS: [facility]
[2017-06-01] MEDS: Nebivolol HCl 5 MG TAB PO SCH (09:46)
[2017-06-01] MEDS: Furosemide 40 MG TAB PO SCH (09:46)
[2017-06-01] MEDS: Aspirin 81 mg Enteric Coated Tablet PO SCH (09:47)
[2017-06-01] MEDS: Magnesium Oxide 400 MG TAB PO SCH (09:47)
[2017-06-01] MEDS: Amlodipine 5 MG TAB PO SCH (09:47)
[2017-06-01] MEDS: Cefepime 1 GM, Admixture Fee 1 EACH in Sterile Water 10 ML SLOW IVP SCH ×2 (11:59→20:51)
--- NOTE | 2017-06-01 13:16 | PRG ---
DATE OF SERVICE: 06/01/2017 SUBJECTIVE: The patient is doing reasonably well. No complaints. OBJECTIVE: VITAL SIGNS: Temperature 97.5, pulse 61, blood pressure 112/46 and O2 sat 95% on 5 liters. HEENT: Unremarkable. NECK: No JVD. LUNGS: She has some crepitus beneath her left rib cage, right side clear. Her chest tube looks like it has been pulled almost entirely out. She has no leak or air movement in the Pleur-Evac. CARDIAC: S1 and S2 regular. ABDOMEN: Soft. EXTREMITIES: No edema. ASSESSMENT: Left hydropneumothorax with ineffective chest tube drainage. PLAN: I will go ahead and take the catheter out and see how she does. I have a feeling her lung is probably stuck and she will have a small loculated pneumothorax in that area. She is not a candidate for surgical intervention according to Dr. Motta. I spoke with the family.
--- NOTE | 2017-06-01 14:42 | PDOC.CTH ---
<Patsy Solitario - Last Filed: 06/01/17 14:40> Cardiology Progress Note - Subjective The pt seen and examined. Severe Resp. distress after CT was d/connor. Palliative Care consult was ordered. Family stated she might d/c home with hospice. - Objective Vital Signs Temp Pulse Resp BP BP BP Pulse Ox 06/01/17 12:20 97.5 F L 65 18 110/53 L 92 L 06/01/17 09:47 61 102/46 L 06/01/17 08:36 95 06/01/17 08:30 60 20 06/01/17 08:10 97.5 F L 61 17 102/46 L 93 L 06/01/17 04:00 97.4 F L 64 22 H 101/49 L 91 L Admit Weight 112 lb Weight 110 lb 11.2 oz 05/31/17 06/01/17 06/02/17 06:59 06:59 06:59 Intake Total 110 861 Output Total 500 680 Balance -390 181 - Physical Examination Neck: no JVD present Lungs: other: (labored) Heart: RRR Abdomen: soft Extremities: other: (No edema) - Telemetry Telemetry Rhythm: SR 1st AVB - Labs Result Diagrams: 05/31/17 04:32 05/31/17 04:32 Troponin/CKMB CK-MB (CK-2) 5.1 ng/mL (0-6.6) 05/30/17 05:16 Troponin I 0.125 ng/mL (< 0.028) H 05/30/17 05:16 - Assessment/Plan 1. Acute respiratory failure - Palliative care consult was ordered; cont. monitor 2. Paroxysmal Afib - Converted back to SR on 05/31/17 at 1000; on Amiodarone and ASA 81mg; Eliquis was d/connor due to Anemia 3. Lt Pleural effusion - CT was d/connor; managed by CT surgeon and dough panner 4. CAD with HX of CABG on 04/24/18 - stable; on BBlocker, ASA, Statin; cont. monitor on tele 5. HTN - stable; cont. monitor 6. Hyperlipidemia - on Statin 7. Hypothyroidism - on Levothyroxin 8. PVD - stable MAR reviewed * Palliative Care consult; DNR Review of Systems - Review of Systems Constitutional: reports: see HPI <Francisca Jett - Last Filed: 06/02/17 09:59> Cardiology Progress Note - Objective Vital Signs Temp Pulse Resp BP BP Pulse Ox 06/02/17 09:53 117 H 96/54 L 06/02/17 08:00 97.5 F L 117 H 18 96/54 L 93 L 06/02/17 07:46 65 20 06/02/17 03:30 97.4 F L 22 H 96/46 L 94 L 06/02/17 00:37 103 H 24 H 91 L Admit Weight 112 lb Weight 115 lb 06/01/17 06/02/17 06/03/17 06:59 06:59 06:59 Intake Total 861 Output Total 680 Balance 181 - Labs Result Diagrams: 05/31/17 04:32 05/31/17 04:32 Troponin/CKMB CK-MB (CK-2) 5.1 ng/mL (0-6.6) 05/30/17 05:16 Troponin I 0.125 ng/mL (< 0.028) H 05/30/17 05:16 - Assessment/Plan Pt. seen and eval. by me. I agree with the A/P by the HR CLERK. Poor prognosis.
[2017-06-01] MEDS ORDERED: ALPRAZolam 0.25 MG TAB PO SCH (15:45)
--- NOTE | 2017-06-01 16:51 | PDOC.PN ---
- Subjective Encounter Start Date: 06/01/17 Encounter Start Time: 16:49 Pt seen for followup re: acute respiratory failure. Denies chest pain or shortness of breath. - Objective Resuscitation Status: Resuscitation Status DNR:Do Not Resuscitate MAR Reviewed: Yes Vital Signs & Weight: Vital Signs (12 hours) Temp Pulse Resp BP BP Pulse Ox 06/01/17 15:50 64 18 06/01/17 12:20 97.5 F L 65 18 110/53 L 92 L 06/01/17 09:47 61 102/46 L 06/01/17 08:36 95 06/01/17 08:30 60 20 06/01/17 08:10 97.5 F L 61 17 102/46 L 93 L Weight Admit Weight 112 lb Weight 110 lb 11.2 oz I&O: 05/31/17 06/01/17 06/02/17 06:59 06:59 06:59 Intake Total 110 861 Output Total 500 680 Balance -390 181 Result Diagrams: 05/31/17 04:32 05/31/17 04:32 EKG Reviewed by me: Yes (Tele: NSR) Phys Exam - Physical Examination Constitutional: NAD HEENT: moist MMs Neck: supple Diminished air entry L base Cardiovascular: RRR Neurological: moves all 4 limbs Psychiatric: normal affect Dx/Plan (1) Acute respiratory failure Code(s): J96.00 - ACUTE RESPIRATORY FAILURE, UNSP W HYPOXIA OR HYPERCAPNIA Status: Acute Comment: Extubated (2) Pleural effusion, left Code(s): J90 - PLEURAL EFFUSION, NOT ELSEWHERE CLASSIFIED Status: Acute Comment: CT surgery consulted, planned thoracentesis if necessary (3) CAD (coronary artery disease) Code(s): I25.10 - ATHSCL HEART DISEASE OF [place] CORONARY ARTERY W/O ANG PCTRS Status: Chronic Qualifiers: Comment: s/p cabg on 04/24 (4) HTN (hypertension) Code(s): I10 - ESSENTIAL (PRIMARY) HYPERTENSION Status: Chronic Qualifiers: Comment: labile (5) Hyperlipidemia Code(s): E78.5 - HYPERLIPIDEMIA, UNSPECIFIED Status: Chronic (6) Hypothyroid Code(s): E03.9 - HYPOTHYROIDISM, UNSPECIFIED Status: Chronic (7) PVD (peripheral vascular disease) Code(s): I73.9 - PERIPHERAL VASCULAR DISEASE, UNSPECIFIED Status: Chronic - Plan plan discussed w/ family * . Discussed with nursing staff. Palliative care has been consulted since family is planning for hospice care. Chest tube removed earlier today. Review of Systems - Review of Systems Respiratory: negative: Cough, Dry, Shortness of Breath, Hemoptysis, SOB with Excertion, Pleuritic Pain, Sputum, Wheezing Cardiovascular: negative: chest pain, palpitations, orthopnea, paroxysmal nocturnal dyspnea, edema, light headedness - Medications/Allergies Allergies/Adverse Reactions: Allergies Allergy/AdvReac Type Severity Reaction Status Date / Time No Known Allergies Allergy Verified 05/28/17 22:52 Medications: Current Medications Acetaminophen (Tylenol) 650 mg PO Q4H PRN PRN Reason: Headache/Fever or Pain Acetaminophen (Tylenol) 650 mg [place] Q4H PRN PRN Reason: Headache/Fever or Pain Albuterol/Ipratropium (Duoneb) 3 ml EZPAP [id number] [facility] Last Admin: 06/01/17 15:50 Dose: 3 ml Alprazolam (Xanax) 0.25 mg PO TIDPRN PRN PRN Reason: Anxiety Alprazolam (Xanax) 0.25 mg PO NOW [facility] Stop: 06/01/17 17:45 Last Admin: 06/01/17 16:07 Dose: 0.25 mg Amiodarone HCl (Cordarone) 200 mg PO [facility] Last Admin: 05/31/17 20:13 Dose: 200 mg Amlodipine Besylate (Norvasc) 2.5 mg PO DAILY [facility] Last Admin: 06/01/17 09:47 Dose: 2.5 mg Aspirin (Ecotrin) 81 mg PO DAILY [facility] Last Admin: 06/01/17 09:47 Dose: 81 mg Atorvastatin Calcium (Lipitor) 80 mg PO [facility] Last Admin: 05/31/17 20:13 Dose: 80 mg Bisacodyl (Dulcolax) 10 mg PO DAILYPRN PRN PRN Reason: Constipation Budesonide (Pulmicort Neb Solution) 0.5 mg INH BID-RT [facility] Last Admin: 06/01/17 08:30 Dose: 0.5 mg Coenzyme Q10 (Coenzyme Q10) 100 mg PO [facility] Last Admin: 05/31/17 20:13 Dose: 100 mg Ezetimibe (Zetia) 10 mg PO [facility] Last Admin: 05/31/17 20:15 Dose: 10 mg Furosemide (Lasix) 40 mg PO DAILY-AC [facility] Last Admin: 06/01/17 09:46 Dose: 40 mg Cefepime HCl 1 gm/Miscellaneous Medication 1 each/ Sterile Water 10 mls @ 120 mls/hr SLOW IVP Q12HR [facility] Last Admin: 06/01/17 11:59 Dose: 10 mls Latanoprost (Xalatan 0.005% [facility]) 1 drop EA EYE QPM [facility] Last Admin: 05/31/17 20:15 Dose: 1 drop Levothyroxine Sodium (Synthroid) 75 mcg PO 0600 [facility] Last Admin: 06/01/17 06:08 Dose: 75 mcg Magnesium Oxide (Magnesium Oxide) 400 mg PO DAILY [facility] Last Admin: 06/01/17 09:47 Dose: 400 mg Methylprednisolone Sodium Succinate (Solu-Medrol) 40 mg IVP Q6HR [facility] Last Admin: 06/01/17 12:00 Dose: 40 mg Nebivolol (Bystolic) 5 mg PO DAILY [facility] Last Admin: 06/01/17 09:46 Dose: 5 mg Olmesartan (Benicar) 20 mg PO [facility] Last Admin: 05/31/17 20:13 Dose: Not Given Ondansetron HCl (Zofran Odt) 4 mg SL Q6H PRN PRN Reason: Nausea/Vomiting Last Admin: 06/01/17 16:07 Dose: 4 mg Pantoprazole Sodium (Protonix) 40 mg PO DAILY [facility] Last Admin: 06/01/17 09:47 Dose: 40 mg Sodium Chloride (Flush - Normal Saline) 10 ml IVF PRN PRN PRN Reason: Saline Flush Last Admin: 06/01/17 12:03 Dose: 10 ml
[2017-06-01] MEDS: Atorvastatin Calcium 40 MG TAB PO SCH (20:50)
[2017-06-01] MEDS: Amiodarone 200 MG TAB PO SCH (20:50)
[2017-06-01] MEDS: Ezetimibe 10 MG TAB PO SCH (20:50)
[2017-06-01] MEDS: Ubidecarenone 50 MG CAP PO SCH (20:51)
[2017-06-01] MEDS: Latanoprost 0.005% Ophth Soln 2.5 ml Bottle EA EYE SCH (20:52)
[2017-06-01] MEDS ORDERED: ALPRAZolam 0.25 MG TAB PO PRN (21:00)
[2017-06-02] MEDS: Levothyroxine Sodium 75 MCG TAB PO SCH (06:48)
[2017-06-02] MEDS: Budesonide 0.5 MG/2 ML NEB INH SCH ×2 (07:46→18:49)
--- NOTE | 2017-06-02 09:33 | PRG ---
DATE OF SERVICE: 06/02/2017 This morning she is awake, alert, responsive, still encephalopathic. PHYSICAL EXAMINATION: VITAL SIGNS: Blood pressure is 96/46, O2 sats are 90% on 4 liters, respirations 18, temperature 98. CHEST: Rhonchi and crackles, left greater than the right. No wheezing. CARDIAC: Normal S1-S2. ABDOMEN: Soft. No masses. IMPRESSION: 1. Left pleural effusion, transudate. 2. Recent coronary artery bypass graft. 3. Dementia. PLAN: Switch her to oral medication and antibiotics. PT and supportive care. Hopefully, she can be discharged home in the next to 24-48 hours.
[2017-06-02] MEDS: Amlodipine 5 MG TAB PO SCH (09:53)
[2017-06-02] MEDS: Aspirin 81 mg Enteric Coated Tablet PO SCH (09:53)
[2017-06-02] MEDS: Magnesium Oxide 400 MG TAB PO SCH (09:53)
[2017-06-02] MEDS: Nebivolol HCl 5 MG TAB PO SCH (09:53)
[2017-06-02] MEDS: Furosemide 40 MG TAB PO SCH (09:54)
[2017-06-02] MEDS: Cefepime 1 GM, Admixture Fee 1 EACH in Sterile Water 10 ML SLOW IVP SCH (09:57)
[2017-06-02] MEDS ORDERED: Cefdinir 300 MG CAP PO SCH (10:00)
--- NOTE | 2017-06-02 10:26 | RAD ---
CHEST 1 VIEW: COMPARISON: 06/01/17. HISTORY: Evaluate for pneumothorax. FINDINGS: Interval removal of a small-bore left-sided chest tube. Persistent subcutaneous emphysema in the lef t hemithorax and lower left neck. Stable atherosclerosis. Stable cardiac silhouette. The pulmonary vessels are normal. Costophrenic angles are clear. There are parenchymal changes in the left lung base. Bilateral apical pleural thickening. No definite pneumothorax. Vascular calcifications are n oted. IMPRESSION: 1. Interval removal of left-sided small-bore chest tube. 2. No definite pneumothorax. POS: [facility]
[2017-06-02 12:38] VITALS: BMI 19.7
--- NOTE | 2017-06-02 14:23 | PDOC.PN ---
- Subjective Encounter Start Date: 06/02/17 Encounter Start Time: 14:32 Subjective: No complaints. hard of hearing but AO x 2. -: No acute events overnight. - Objective Resuscitation Status: Resuscitation Status DNR:Do Not Resuscitate MAR Reviewed: Yes Vital Signs & Weight: Vital Signs (12 hours) Temp Pulse Resp BP BP Pulse Ox 06/02/17 13:59 105 H 20 91 L 06/02/17 12:18 97.7 F 102 H 18 106/55 L 92 L 06/02/17 09:53 117 H 96/54 L 06/02/17 08:20 97.5 F L 117 H 18 93 L 06/02/17 08:00 97.5 F L 117 H 18 96/54 L 93 L 06/02/17 07:46 65 20 06/02/17 03:30 97.4 F L 22 H 96/46 L 94 L Weight Admit Weight 112 lb Weight 115 lb I&O: 06/01/17 06/02/17 06/03/17 06:59 06:59 06:59 Intake Total 861 Output Total 680 Balance 181 Result Diagrams: 05/31/17 04:32 05/31/17 04:32 Phys Exam - Physical Examination Constitutional: NAD HEENT: PERRLA, moist MMs, sclera anicteric Neck: no JVD, supple, full ROM Respiratory: no wheezing, no rales, no rhonchi, clear to auscultation bilateral reduced breath sounds Cardiovascular: RRR, no significant murmur, no rub, gallop Gastrointestinal: soft, non-tender, no distention, positive bowel sounds Musculoskeletal: pulses present, edema present (1+ b/l lower extremities. ) Psychiatric: normal affect, A&O x 3 Skin: no rash, normal turgor Dx/Plan (1) Acute on chronic systolic (congestive) heart failure Code(s): I50.23 - ACUTE ON CHRONIC SYSTOLIC (CONGESTIVE) HEART FAILURE Status : Acute Comment: EF with 60-65% EF, likely diastolic dysfunction. On PO furosemide. Cardiology on board. Will reduce to 20 mg lasix as creatinine still elevated and trending up. Monitor. (2) Pleural effusion, left Code(s): J90 - PLEURAL EFFUSION, NOT ELSEWHERE CLASSIFIED Status: Acute Comment: Small effusions on repeat imagine. Chest tube out. Patient is stable on NC O2 so will monitor (3) SILVIA (acute kidney injury) Code(s): N17.9 - ACUTE KIDNEY FAILURE, UNSPECIFIED Status: Acute Comment: Trended up. Could be due to diuretics. Reduce LAsix to 20 mg daily and monitor. Might need some IVF but will be cautious due to CHF. (4) Acute respiratory failure Code(s): J96.00 - ACUTE RESPIRATORY FAILURE, UNSP W HYPOXIA OR HYPERCAPNIA Status: Resolved Qualifiers: Respiratory failure complication: hypoxia Qualified Code(s): J96.01 - Acute respiratory failure with hypoxia Comment: Resolved. (5) CAD (coronary artery disease) Code(s): I25.10 - ATHSCL HEART DISEASE OF [place] CORONARY ARTERY W/O ANG PCTRS Status: Chronic Qualifiers: Coronary Disease-Associated Artery/Lesion type: unspecified vessel or lesion type [place] vs. transplanted heart: [place] heart Associated angina: without angina Qualified Code(s): I25.10 - Atherosclerotic heart disease of [place] coronary artery without angina pectoris Comment: s/p cabg on 04/24 Stable. Chest pain free. Continue current meds. (6) HTN (hypertension) Code(s): I10 - ESSENTIAL (PRIMARY) HYPERTENSION Status: Chronic Qualifiers: Hypertension type: essential hypertension Comment: Borderline low pressures. Will discontinue amlodipine. Might be able to increase beta laura dose to tackle tachycardia once this is done. (7) Hyperlipidemia Code(s): E78.5 - HYPERLIPIDEMIA, UNSPECIFIED Status: Chronic Qualifiers: Hyperlipidemia type: unspecified Qualified Code(s): E78.5 - Hyperlipidemia , unspecified Comment: Continue Lipitor (8) Hypothyroid Code(s): E03.9 - HYPOTHYROIDISM, UNSPECIFIED Status: Chronic Qualifiers: Hypothyroidism type: unspecified Qualified Code(s): E03.9 - Hypothyroidism , unspecified Comment: Continue Levothyroxine. - Plan cont current plan of care, plan discussed w/ family, continue antibiotics, PT/OT * .
[2017-06-02] MEDS: Ondansetron ODT 4 MG TAB SL PRN (18:06)
[2017-06-02] MEDS: Ubidecarenone 50 MG CAP PO SCH (21:12)
[2017-06-02] MEDS: Ezetimibe 10 MG TAB PO SCH (21:12)
[2017-06-02] MEDS: Atorvastatin Calcium 40 MG TAB PO SCH (21:12)
[2017-06-02] MEDS: Amiodarone 200 MG TAB PO SCH (21:13)
[2017-06-02] MEDS: Latanoprost 0.005% Ophth Soln 2.5 ml Bottle EA EYE SCH (21:13)
[2017-06-02] MEDS: Cefdinir 300 MG CAP PO SCH (21:13)
[2017-06-03 05:49] LABS: Anion Gap 13 mmol/L (10-20); BUN (Urea Nitrogen) 83 mg/dL (9.8-20.1); Calc. Creatinine Clearance 16 mL/min (70-130); Carbon Dioxide 32 mmol/L (23-31); Chloride 104 mmol/L (98-107); Estimated GFR-MDRD 24; Glucose 114 mg/dL (83-110); Potassium 4.1 mmol/L (3.5-5.1); Sodium 145 mmol/L (136-145)
[2017-06-03 06:05] LABS: Band 14 % (5-11); Hemoglobin 6.5 g/dL (12.0-16.0); Lymphocytes 5 % (21-51); MDiff Complete? YES; Mean Corpuscular HGB CONC 32.8 g/dL (32.0-36.0); Mean Corpuscular Hemoglobin 33.2 pg (27.0-31.0); Mean Platelet Volume 9.3 fL (7.4-10.4); Neutrophil 81 % (42-75); Nucleated RBC 1 % (0); PLT Morphology Comment Appears Adequate; Platelet Count 149 thou/uL (130-400); RBC Distribution Width 17.9 % (11.5-14.5); Red Blood Cell (RBC) Count 1.97 mill/uL (4.20-5.40); White Blood Cell (WBC) Count 12.1 thou/uL (4.8-10.8)
[2017-06-03] MEDS: Levothyroxine Sodium 75 MCG TAB PO SCH (06:14)
[2017-06-03] MEDS ORDERED: predniSONE 20 MG TAB PO SCH (08:00)
[2017-06-03] MEDS: Budesonide 0.5 MG/2 ML NEB INH SCH (08:13)
[2017-06-03] MEDS ORDERED: Lorazepam 2 MG/ML VIAL SLOW IVP PRN ×2 (08:59→09:00)
[2017-06-03] MEDS ORDERED: Morphine 5 MG/ML SYRINGE SLOW IVP SCH (09:30)
--- NOTE | 2017-06-03 09:59 | PDOC.EVN ---
Event Note - Event Note Event Note: Called by patient's nurse due to worsening respiratory status. She was placed on nonrebreather but still doing poorly. Family by bedside and have decided to make patient comfort care. They do not want to pursue any interventions. Will consult hospice/palliative
--- NOTE | 2017-06-03 11:00 | PDOC.PN ---
- Subjective Encounter Start Date: 06/03/17 Encounter Start Time: 10:58 Subjective: Patient had O2 desaturation, now requiring NRB O2. - Objective Resuscitation Status: Resuscitation Status DNR:Do Not Resuscitate MAR Reviewed: Yes Vital Signs & Weight: Vital Signs (12 hours) Temp Pulse Resp BP BP Pulse Ox 06/03/17 08:13 24 H 06/03/17 08:09 97.6 F 60 24 H 106/52 L 93 L 06/03/17 04:00 96.1 F L 59 L 22 H 111/59 L 94 L 06/03/17 00:36 97 16 93 L 06/03/17 00:11 64 24 H 128/59 L 95 06/03/17 00:07 95 Weight Admit Weight 112 lb Weight 113 lb 4.8 oz I&O: 06/02/17 06/03/17 06/04/17 06:59 06:59 06:59 Intake Total 590 Output Total 200 Balance 390 Result Diagrams: 06/03/17 04:55 06/03/17 04:55 Phys Exam - Physical Examination Lethargic, not responding to commands HEENT: PERRLA, moist MMs, sclera anicteric Neck: supple, full ROM Transmitted brreath sounds b/l Cardiovascular: RRR, no significant murmur, no rub Gastrointestinal: soft, non-tender, no distention, positive bowel sounds Musculoskeletal: no edema, pulses present LEthargic. Not responding to voice Skin: no rash, normal turgor Dx/Plan (1) Comfort measures only status Code(s): Z51.5 - ENCOUNTER FOR PALLIATIVE CARE Status: Acute Plan: IV morphine for pain IV lorazepam PRN for anxiety Transderm scopolamine Stop blood draws. Hospice consult. Comment: Extensive discussion held with and family members. They decided on comfort measures only. WOuld like all medications to be discontinued and patient made comfortable. (2) Acute on chronic systolic (congestive) heart failure Code(s): I50.23 - ACUTE ON CHRONIC SYSTOLIC (CONGESTIVE) HEART FAILURE Status : Acute Plan: As above. Comment: - Plan Comfort care only. * .
--- NOTE | 2017-06-03 11:03 | PRG ---
DATE OF SERVICE: 06/03/2017 She was started on Ativan and morphine by her primary care physician because of respiratory distress. Apparently, the at the bedside, he wants comfort care right now. She is on a nonrebreather. PHYSICAL EXAMINATION: VITAL SIGNS: Sats are 95, respiration 24, blood pressure 106/42. CHEST: Chest revealed decreased breath sounds, bilateral crackles. CARDIAC: Normal S1-S2. No gallops. ABDOMEN: Soft. No masses. LABORATORY DATA: BUN and creatinine are elevated at 83 and 1.9. White count 10,000. IMPRESSION: 1. Chronic obstructive pulmonary disease. 2. Congestive heart failure, recent coronary artery bypass graft. 3. Severe decreased left pleural effusion. PLAN: Discontinue Lasix. Comfort care.
[2017-06-03] MEDS ORDERED: Scopolamine 1.5 mg/72 hour Patch TD SCH (13:00)
[2017-06-03] MEDS: Morphine 5 MG/ML SYRINGE SLOW IVP SCH ×2 (13:09→17:07)
[2017-06-03] MEDS: Amiodarone 200 MG TAB PO SCH (13:20)
[2017-06-03] MEDS: Cefdinir 300 MG CAP PO SCH (13:20)
[2017-06-03] MEDS: Aspirin 81 mg Enteric Coated Tablet PO SCH (13:20)
[2017-06-03] MEDS: Furosemide 40 MG TAB PO SCH (13:20)
[2017-06-03] MEDS: Nebivolol HCl 5 MG TAB PO SCH (13:21)
[2017-06-03] MEDS: Magnesium Oxide 400 MG TAB PO SCH (13:21)
[2017-06-03 20:04] VITALS: BP 91/54; TEMP 97.7
--- NOTE | 2017-06-04 01:21 | DIS ---
DATE OF ADMISSION: 05/28/2017. DATE OF DISCHARGE: 06/03/2017. CONDITION AT DISCHARGE: Poor. DISCHARGE DIAGNOSES: Acute respiratory failure with hypoxia, acute on chronic heart failure. SECONDARY DIAGNOSES: Left pleural effusion, acute kidney injury, coronary artery disease, hypertensi on, hyperlipidemia, hypothyroidism. DISCHARGE MEDICATIONS: Lorazepam 2 mg IV q.4 hours p.r.n. for anxiety, ondansetron 4 mg sublingually q.6 hours p.r.n. for nausea and vomiting, scopolamine patch 1.5 mg q.3 days. HISTORY OF PRESENT ILLNESS: Pleasant 87-year-old lady who was initially hospitalized from 04/21/2017 to 05/11/2017 for chest pain. She had a cardiac catheterization, which showed CAD and CABG in 04/24. Her stay then was complicated by an episode of torsades, following which she required intubat ion and was discharged home with a LifeVest. Since her discharge, she had been complaining of progre ssively worsening lower extremity edema, shortness of breath about 5 days before admission. They con tacted the home care physical therapist and was started on 40 mg of Lasix, eventually increased to [address] Motta the next day. She was admitted for acute heart failure. HOSPITAL COURSE: She had a complicated hospital stay, which included code blue called on 05/30/2017 when she became bradycardic and unresponsive. They started her on medications and refused in tubation and decided to make the patient comfortable. He also declined transfer to CCU for BiPAP. T he patient was then placed on nonrebreather and a chest x-ray revealed left pleural effusion as well as pneumothorax. A chest tube was placed, which was eventually discontinued. The patient was placed on high-flow oxygen and was initially comfortable. However, her clinical status started deteriorati ng and her oxygen requirements were escalated to nonrebreather. Family held meeting and then decide d that the patient was to be made comfort care and would like to discharge the patient to hospice. PHYSICAL EXAMINATION: She was not examined on the day of discharge. For details, refer to today's p ngoc notes. PROCEDURES: Chest tube placement (left), TTE. TTE shows ejection fraction of 60%-65% with probable diastolic dysfunction and mild LVH with moderately to severely dilated left atrium and [id number] te tricuspid regurgitation. She had a series of chest x-ray with the last one being on 06/02/2017 an d this showed an interval removal of the left-sided small-bore chest tube and no definite pneumothora x. CONSULTATIONS: Palliative Care, Cardiology. DIET: Not applicable. ACTIVITY: Not applicable. CARE GOALS: Comfort measures only. DISPOSITION: Discharged to hospice. Total time of discharge including chart review and documentation was 65 minutes.
--- NOTE | 2017-06-07 14:15 | EKG ---
Test Reason : SOB Blood Pressure : / mmHG Vent. Rate : 057 BPM Atrial Rate : 057 BPM P-R Int : 190 ms QRS Dur : 092 ms QT Int : 508 ms P-R-T Axes : 055 038 060 degrees QTc Int : 494 ms Sinus bradycardia Prolonged QT Baseline Artifact Present Abnormal ECG No ST elevation/KY Confirmed by LYN TORREZ, EMILIA ([id number]), news videotape editor XAVI BUSTAMANTE ([id number]) on 06/07/2017 2:15:25 PM Referred By: Confirmed By:EMILIA NICHOLSON MD
--- NOTE | 2017-06-08 16:27 | EKG ---
Test Reason : STAT Blood Pressure : / mmHG Vent. Rate : 049 BPM Atrial Rate : 049 BPM P-R Int : 246 ms QRS Dur : 106 ms QT Int : 520 ms P-R-T Axes : 106 079 262 degrees QTc Int : 469 ms Marked sinus bradycardia with 1st degree A-V block Pulmonary disease pattern T wave abnormality, consider inferolateral ischemia Abnormal ECG When compared with ECG of 28-MAY-2017 14:46, (Unconfirmed) NC interval has increased Confirmed by Ibrahima DE LA TORRE ([id number]) on 06/08/2017 4:27:36 PM Referred By: HAN Confirmed By:Ibrahima DE LA TORRE
== END 2017-06-03 20:53 | disposition short-term general hospital (02) | DRG 314 ==
LOC: ERS 14:32 → 2NO 19:16 → CCU 05-30 04:17 → 2NO 05-30 04:19
PROVIDERS: ADMIT Internal Medicine; ATTEND Internal Medicine
PROC: 0W9B3ZX Drainage of Left Pleural Cavity, Percutaneous Approach, Diagnostic (ICD-10-PCS; 2017-05-28)
PROC: 0W9B30Z Drainage of Left Pleural Cavity with Drainage Device, Percutaneous Approach (ICD-10-PCS; principal; 2017-05-30)
PROC: 30233N1 Transfusion of Nonautologous Red Blood Cells into Peripheral Vein, Percutaneous Approach (ICD-10-PCS; 2017-05-30)
DX: I97.130 Postprocedural heart failure following cardiac surgery (principal); J96.01 Acute respiratory failure with hypoxia; J90 Pleural effusion, not elsewhere classified; N17.9 Acute kidney failure, unspecified; I50.33 Acute on chronic diastolic (congestive) heart failure; J94.2 Hemothorax; I51.81 Takotsubo syndrome; Z51.5 Encounter for palliative care; I11.0 Hypertensive heart disease with heart failure; J44.9 Chronic obstructive pulmonary disease, unspecified; I48.0 Paroxysmal atrial fibrillation; F03.90 Unspecified dementia, unspecified severity, without behavioral disturbance, psychotic disturbance, mood disturbance, and anxiety; I25.10 Atherosclerotic heart disease of native coronary artery without angina pectoris; I73.9 Peripheral vascular disease, unspecified; Z95.1 Presence of aortocoronary bypass graft; E03.9 Hypothyroidism, unspecified; E78.5 Hyperlipidemia, unspecified; K21.9 Gastro-esophageal reflux disease without esophagitis; Z79.01 Long term (current) use of anticoagulants; Z79.82 Long term (current) use of aspirin; R00.1 Bradycardia, unspecified; Z66 Do not resuscitate; F41.9 Anxiety disorder, unspecified; I07.1 Rheumatic tricuspid insufficiency; Z86.73 Personal history of transient ischemic attack (TIA), and cerebral infarction without residual deficits; D53.9 Nutritional anemia, unspecified
CPT/HCPCS: 36415; 36416; 36430; 71045; 80048; 80053; 82150; 82553; 82607; 82728; 82945; 83540; 83550; 83615; 83880; 83986; 84157; 84478; 84484; 85025; 85060; 85379; 85610; 85730; 86850; 86900; 86901; 87040; 87070; 87116; 87205; 87206; 88112; 88305; 89051; 92950; 93005; 93010; 93306; 94640; 96374; 96375; J2270; A4216; G0283-GO; G8978-GP-CM; G8979-GP-CK; G8987-GO-CM; G8988-GO-CK; G8996-GN-CJ; G8996-GN-CM; G8996-GN-CN; G8997-GN-CI; G8997-GN-CL; G8997-GN-CM; J0461; J0692; J1940; J2001; J2060; J2405; J2920; J2930; J7506; J7620; J7626; P9016; Q0162